=== PATIENT | male | born 1980 | race American Indian/Alaskan Native ===

== ENCOUNTER 2017-02-02 14:05 | Inpatient (IN) | payer MEDICAID, OTHER ==
[2017-02-02] MEDS ORDERED: Acetaminophen/oxyCODONE 325-5 MG Tab PO PRN (15:36)
[2017-02-02] MEDS ORDERED: Zolpidem 5 MG Tab PO PRN (15:46)
[2017-02-02] MEDS ORDERED: Ondansetron 4 MG Tab.DIS PO PRN (15:46)
--- NOTE | 2017-02-02 15:56 | PCM.HP ---
H&P History of Present Illness - General Date of Service: 02/02/17 Admit Problem/Dx: Admission Diagnosis/Problem Admission Diagnosis/Problem Osteomyelitis Source of Information: Patient - History of Present Illness Initial Comments - Free Text/Narative: The patient is a 36-year-old gentleman with a history of diabetes The patient presented with pain in the right foot. He was noted to have diabetic ulcer with osteomyelitis. Was admitted to [facility] and was treated with antibiotic and resection of the calcaneus bone. The patient's wound was treated with wound VAC. The patient was transferred to [facility] for continued IV antibiotic therapy Plan was 6 weeks of IV vancomycin. He has moderate pain in the right calcaneous area. Worse when stepping on it. He says that [place] he was allowed to walk. He was noted to have a highly variable blood sugars between 53-264 in [place]. - Related Data Allergies/Adverse Reactions: Allergies Allergy/AdvReac Type Severity Reaction Status Date / Time No Known Allergies Allergy Verified 02/02/17 14:21 Home Medications: Home Meds Insulin Aspart [NovoLOG] 35 unit SUBCUT TIDAC 02/02/17 [History] Insulin Detemir [Levemir] 60 unit SQ DAILY 02/02/17 [History] amLODIPine [Norvasc] 10 mg PO DAILY 02/02/17 [History] oxyCODONE HCl/Acetaminophen [Percocet 10-325 mg Tablet] 1 each PO Q6H PRN [History] Past Medical History HEENT History: Reports: Sinusitis, Other (See Below) Other HEENT History: wears glasses, tinnitus Cardiovascular History: Reports: High Cholesterol, Hypertension Respiratory History: Reports: None Gastrointestinal History: Reports: Cholelithiasis Genitourinary History: Reports: None Musculoskeletal History: Reports: Amputation, Other (See Below) Other Musculoskeletal History: right side, great toe and 2nd toe Neurological History: Reports: Seizure Psychiatric History: Reports: None Endocrine/Metabolic History: Reports: Diabetes, Type II Hematologic History: Reports: None Immunologic History: Reports: None Oncologic (Cancer) History: Reports: None Dermatologic History: Reports: Cellulitis - Infectious Disease History Infectious Disease History: Reports: MRSA - Past Surgical History HEENT Surgical History: Reports: None Cardiovascular Surgical History: Reports: None Respiratory Surgical History: Reports: None GI Surgical History: Reports: Appendectomy, Cholecystectomy Male Surgical History: Reports: None Endocrine Surgical History: Reports: None Neurological Surgical History: Reports: None Musculoskeletal Surgical History: Reports: Amputation, Other (See Below) Other Musculoskeletal Surgeries/Procedures:: left partial calcanectomy Oncologic Surgical History: Reports: None Dermatological Surgical History: Reports: None Social & Family History - Family History Family Medical History: Noncontributory - Tobacco Use Smoking Status *Q: Current Every Day Smoker Years of Tobacco use: 18 Packs/Tins Daily: 0.5 Used Tobacco, but Quit: No Second Hand Smoke Exposure: No - Caffeine Use Caffeine Use: Reports: None Other Caffeine Use: diet pop - Alcohol Use Days Per Week of Alcohol Use: 0 Number of Drinks Per Day: 6 Total Drinks Per Week: 0 - Recreational Drug Use Recreational Drug Use: No H&P Review of Systems - Review of Systems: Review Of Systems: See Below General: Denies: Fever Pulmonary: Denies: Shortness of Breath Cardiovascular: Denies: Chest Pain Gastrointestinal: Denies: Abdominal Pain Psychiatric: Denies: Confusion Exam - Exam Exam: See Below - Vital Signs Weight: 108.771 kg - Exam General: Alert, Oriented Neck: Supple Lungs: Clear to Auscultation, Normal Respiratory Effort Cardiovascular: Regular Rate, Regular Rhythm GI/Abdominal Exam: Normal Bowel Sounds, Soft Extremities: No Pedal Edema, Other (Left lower extremity with wound VAC) - Patient Data Lab Results Last 24 hrs: Laboratory studies from [place] were reviewed. Sodium 133 creatinine 1.5 glucose 332, 264, 53 White blood cell count 4.9, hemoglobin 8.7, platelets 307 *Q Meaningful Use (ADM) - VTE *Q VTE Criteria *Q: - Stroke *Q Stroke Criteria *Q: - AMI *Q AMI Criteria *Q: - Problem List (1) Diabetic ulcer of left foot SNOMED Code(s): 813463230 ICD Code: E11.621 - TYPE 2 DIABETES MELLITUS WITH FOOT ULCER; L97.529 - NON- PRESSURE CHRONIC ULCER OTH PRT LEFT FOOT W UNSP SEVERITY Status: Acute Current Visit: No Qualifiers: Diabetes mellitus type: type 2 Qualified Code(s): E11.621 - Type 2 diabetes mellitus with foot ulcer; L97.529 - Non-pressure chronic ulcer of other part of left foot with unspecified severity (2) Osteomyelitis of ankle AND/OR foot SNOMED Code(s): 09487135 ICD Code: M86.9 - OSTEOMYELITIS, UNSPECIFIED Status: Acute Current Visit : No Onset Date: 06/06/13 Problem Details: OSTEOMYELITIS LEFT CALCANEUS (3) Type I diabetes mellitus - poor control SNOMED Code(s): 514851780 ICD Code: E10.65 - TYPE 1 DIABETES MELLITUS WITH HYPERGLYCEMIA Status: Chronic Current Visit: No Onset Date: 10/12/02 Problem List Initiated/Reviewed/Updated: Yes Orders Last 24hrs: Active Orders 24 hr Category Date Time Status Patient Status [ADT] Routine ADT 02/02/17 15:46 Ordered Antiembolic Devices [RC] PER UNIT ROUTINE Care 02/02/17 15:49 Ordered Glucose [Blood Glucose Check, Bedside] [RC] QIDACANDBED Care 02/02/17 15:44 Ordered Oxygen Therapy [RC] PRN Care 02/02/17 15:46 Ordered Up With Assistance [RC] ASDIRECTED Care 02/02/17 15:46 Ordered VTE/DVT Education [RC] PER UNIT ROUTINE Care 02/02/17 15:46 Ordered Vital Signs [RC] Q4H Care 02/02/17 15:46 Ordered Consistent Carbohydrate Diet [DIET] Diet 02/02/17 Dinner Ordered BASIC METABOLIC PANEL,BMP [CHEM] AM Lab 02/03/17 05:15 Ordered CBC WITH AUTO DIFF [HEME] AM Lab 02/03/17 05:15 Ordered Acetaminophen [Tylenol] Med 02/02/17 15:46 Ordered 650 mg PO Q4H PRN Enoxaparin [Lovenox] Med 02/03/17 09:00 Ordered 40 mg SUBCUT DAILY Insulin Aspart [NovoLOG] Med 02/02/17 17:00 Ordered 10 unit SUBCUT TIDAC Insulin Aspart [NovoLOG] Med 02/02/17 17:00 Ordered See Protocol SUBCUT TIDAC Insulin Detemir Med 02/03/17 09:00 Ordered 15 unit SQ DAILY Ondansetron [Zofran ODT] Med 02/02/17 15:46 Ordered 4 mg PO Q6H PRN Piperacillin/Tazobactam [Zosyn] 3.375 gm Med 02/02/17 15:45 Ordered Sodium Chloride 0.9% [Normal Saline] 100 ml IV .Q8H Sodium Chloride 0.9% [Saline Flush] Med 02/02/17 15:46 Ordered 10 ml FLUSH ASDIRECTED PRN Zolpidem [Ambien] Med 02/02/17 15:46 Ordered 5 mg PO BEDTIME PRN amLODIPine [Norvasc] Med 02/03/17 09:00 Ordered 10 mg PO DAILY oxyCODONE HCl/Acetaminophen Med 02/02/17 15:36 Ordered 1 each PO Q6H PRN Saline Lock Insert [OM.PC] Routine Oth 02/02/17 15:46 Ordered Sequential Compression Device [OM.PC] Per Unit Routine Oth 02/02/17 15:47 Ordered Resuscitation Status Routine Resus Stat 02/02/17 15:46 Ordered Medication Orders Piperacillin Sod/Tazobactam (Sod 3.375 gm/ Sodium Chloride) 100 mls @ 200 mls/ hr IV .Q8H [facility] Insulin Aspart (Novolog) 10 unit SUBCUT TIDAC [facility] Insulin Aspart (Novolog) 0 unit SUBCUT TIDAC [facility] PRN Reason: Protocol Non-Formulary Medication (Amlodipine [Norvasc]) 10 mg PO DAILY [facility] Non-Formulary Medication (Oxycodone Hcl/Acetaminophen) 1 each PO Q6H PRN PRN Reason: Pain Non-Formulary Medication (Insulin Detemir) 15 unit SQ DAILY [facility] Assessment/Plan Comment:: Diabetic foot ulcer with osteomyelitis, status post calcaneal resection Wound care with wound VAC Continue antibiotic with Zosyn Plan was a total of 6 weeks Follow-up with ID is on 09 February with (telemedicine) Diabetes, type I Poorly controlled For now will start Levemir and NovoLog Will adjust based on blood sugars 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
[2017-02-02] MEDS ORDERED: oxyCODONE 5 MG Tab PO PRN (16:04)
[2017-02-02] MEDS ORDERED: Insulin Aspart 100 Units/ML 3 ML Pen SUBCUT SCH (17:00)
[2017-02-02] MEDS: Piperacillin/Tazobactam 3.375 GM in Sodium Chloride 0.9% 100 ML IV SCH ×2 (17:07→23:00)
[2017-02-02] MEDS: Sodium Chloride 0.9% 10 ML Syringe FLUSH PRN ×3 (17:09→23:33)
[2017-02-02] MEDS: Insulin Aspart 100 Units/ML 3 ML Pen SUBCUT SCH ×2 (17:54→17:55)
[2017-02-02] MEDS: Acetaminophen/oxyCODONE 325-5 MG Tab PO PRN (21:12)
[2017-02-02] MEDS: oxyCODONE 5 MG Tab PO PRN (21:13)
[2017-02-03] MEDS: oxyCODONE 5 MG Tab PO PRN ×5 (01:08→18:36)
[2017-02-03] MEDS: Acetaminophen/oxyCODONE 325-5 MG Tab PO PRN ×5 (01:11→18:37)
[2017-02-03] MEDS: Sodium Chloride 0.9% 10 ML Syringe FLUSH PRN ×5 (05:44→22:10)
[2017-02-03] MEDS: Piperacillin/Tazobactam 3.375 GM in Sodium Chloride 0.9% 100 ML IV SCH ×3 (05:45→22:13)
[2017-02-03] MEDS: Insulin Aspart 100 Units/ML 3 ML Pen SUBCUT SCH ×6 (08:13→17:41)
[2017-02-03] MEDS: Insulin Detemir 100 Units/ML 3 ML Pen SUBCUT SCH (08:16)
[2017-02-03] MEDS ORDERED: amLODIPine 5 MG Tab PO SCH (09:00)
[2017-02-03] MEDS ORDERED: INSULIN DETEMIR 60 UNIT SQ SCH (09:00)
[2017-02-03] MEDS: Enoxaparin 40 MG/0.4 ML Syringe SUBCUT SCH (09:51)
[2017-02-03] MEDS: Lisinopril 10 MG Tab PO SCH (09:51)
[2017-02-03] MEDS: Morphine 2 MG/ML Syringe IVPUSH PRN ×3 (10:39→22:10)
[2017-02-03] MEDS: Acetaminophen 325 MG Tab PO PRN (11:42)
[2017-02-04] MEDS: Acetaminophen/oxyCODONE 325-5 MG Tab PO PRN ×4 (02:39→17:29)
[2017-02-04] MEDS: oxyCODONE 5 MG Tab PO PRN ×5 (02:40→21:26)
[2017-02-04] MEDS: Sodium Chloride 0.9% 10 ML Syringe FLUSH PRN ×4 (04:05→09:44)
[2017-02-04] MEDS: Morphine 2 MG/ML Syringe IVPUSH PRN ×2 (04:05→09:44)
[2017-02-04] MEDS: Piperacillin/Tazobactam 3.375 GM in Sodium Chloride 0.9% 100 ML IV SCH ×3 (05:30→22:27)
[2017-02-04] MEDS: Insulin Aspart 100 Units/ML 3 ML Pen SUBCUT SCH ×6 (09:18→17:27)
[2017-02-04] MEDS: Insulin Detemir 100 Units/ML 3 ML Pen SUBCUT SCH (09:20)
[2017-02-04] MEDS: Enoxaparin 40 MG/0.4 ML Syringe SUBCUT SCH (09:23)
[2017-02-04] MEDS: Lisinopril 10 MG Tab PO SCH (09:24)
[2017-02-04] MEDS: Acetaminophen 325 MG Tab PO PRN ×2 (09:26→21:23)
[2017-02-04] MEDS: Metoprolol Tartrate 25 MG Tab PO SCH ×2 (11:06→22:25)
[2017-02-05] MEDS: Acetaminophen/oxyCODONE 325-5 MG Tab PO PRN ×5 (00:46→20:57)
[2017-02-05] MEDS: oxyCODONE 5 MG Tab PO PRN ×5 (01:31→21:05)
[2017-02-05] MEDS: Piperacillin/Tazobactam 3.375 GM in Sodium Chloride 0.9% 100 ML IV SCH ×3 (06:47→21:07)
[2017-02-05] MEDS: Lisinopril 10 MG Tab PO SCH (08:55)
[2017-02-05] MEDS: Insulin Detemir 100 Units/ML 3 ML Pen SUBCUT SCH (08:56)
[2017-02-05] MEDS: Enoxaparin 40 MG/0.4 ML Syringe SUBCUT SCH (08:56)
[2017-02-05] MEDS: Insulin Aspart 100 Units/ML 3 ML Pen SUBCUT SCH ×6 (08:57→17:36)
[2017-02-05] MEDS: Metoprolol Tartrate 25 MG Tab PO SCH ×2 (09:00→21:06)
[2017-02-05] MEDS: Acetaminophen 325 MG Tab PO PRN ×3 (09:04→23:42)
[2017-02-05] MEDS: Sodium Chloride 0.9% 10 ML Syringe FLUSH PRN ×2 (13:41→14:32)
[2017-02-05] MEDS: Morphine 2 MG/ML Syringe IVPUSH PRN (13:41)
--- NOTE | 2017-02-05 16:37 | PCM.PN ---
- General Info Date of Service: 02/05/17 Admission Dx/Problem (Free Text): Admission Diagnosis/Problem Admission Diagnosis/Problem Osteomyelitis Functional Status: Reports: Pain Controlled - Review of Systems General: Denies: Fever, Weakness Pulmonary: Denies: Shortness of Breath Cardiovascular: Denies: Chest Pain, Edema Psychiatric: Denies: Mood Lability, Anxiety - Patient Data Vitals - Most Recent: Last Vital Signs Temp 37.0 C 02/05/17 16:00 Pulse 72 02/05/17 16:00 Resp 20 02/05/17 16:00 BP 167/103 H 02/05/17 16:00 Pulse Ox 100 02/05/17 16:00 Weight - Most Recent: 108.771 kg I&O - Last 24 Hours: Intake & Output 02/05/17 02/05/17 02/05/17 06:59 14:59 22:59 Intake Total 435 570 98 Balance 435 570 98 Lab Results Last 24 Hours: Laboratory Results - last 24 hr 02/04/17 02/04/17 02/05/17 Range/Units 17:26 20:47 06:25 WBC 6.0 (5.0-10.0) 10^3/uL RBC 3.62 L (4.6-6.2) 10^6/uL Hgb 9.5 L (14.0-18.0) g/dL Hct 29.8 L (40.0-54.0) % MCV 82.3 (80-100) fL MCH 26.2 L (27.0-34.0) pg MCHC 31.9 L (33.0-35.0) g/dL Plt Count 327 (150-450) 10^3/uL Neut % (Auto) 65.2 (42.2-75.2) % Lymph % (Auto) 17.7 L (20.5-50.1) % Ellis % (Auto) 8.2 H (2-8) % Eos % (Auto) 8.7 H (1.0-3.0) % Baso % (Auto) 0.2 (0.0-1.0) % Sodium (135-145) mmol/L Potassium (3.6-5.0) mmol/L Chloride (101-111) mmol/L Carbon Dioxide (21.0-31.0) mmol/L Anion Gap BUN (7-18) mg/dL Creatinine (0.6-1.3) mg/dL Est Cr Clr Drug Dosing mL/min Estimated GFR (MDRD) Glucose (74-105) mg/dL POC Glucose 167 H 190 H (70-105) mg/dl Calcium (8.4-10.2) mg/dl 02/05/17 02/05/17 02/05/17 Range/Units 06:25 07:53 11:23 WBC (5.0-10.0) 10^3/uL RBC (4.6-6.2) 10^6/uL Hgb (14.0-18.0) g/dL Hct (40.0-54.0) % MCV (80-100) fL MCH (27.0-34.0) pg MCHC (33.0-35.0) g/dL Plt Count (150-450) 10^3/uL Neut % (Auto) (42.2-75.2) % Lymph % (Auto) (20.5-50.1) % Ellis % (Auto) (2-8) % Eos % (Auto) (1.0-3.0) % Baso % (Auto) (0.0-1.0) % Sodium 135 (135-145) mmol/L Potassium 4.8 (3.6-5.0) mmol/L Chloride 109 (101-111) mmol/L Carbon Dioxide 21.0 (21.0-31.0) mmol/L Anion Gap 9.8 BUN 13 (7-18) mg/dL Creatinine 1.4 H (0.6-1.3) mg/dL Est Cr Clr Drug Dosing 82.44 mL/min Estimated GFR (MDRD) 57 Glucose 255 H (74-105) mg/dL POC Glucose 242 H 164 H (70-105) mg/dl Calcium 8.0 L (8.4-10.2) mg/dl Med Orders - Current: Current Medications Acetaminophen (Tylenol) 650 mg PO Q4H PRN PRN Reason: Pain (Mild 1-3)/fever Last Admin: 02/05/17 14:31 Dose: 650 mg Enoxaparin Sodium (Lovenox) 40 mg SUBCUT DAILY [facility] Last Admin: 02/05/17 08:56 Dose: 40 mg Piperacillin Sod/Tazobactam (Sod 3.375 gm/ Sodium Chloride) 100 mls @ 200 mls/ hr IV Q8H [facility] Last Infusion: 02/05/17 15:15 Dose: Infused Insulin Aspart (Novolog) [address] [facility] Last Admin: 02/05/17 13:40 Dose: 10 units Insulin Aspart (Novolog) [address] [facility] PRN Reason: Protocol Last Admin: 02/05/17 13:41 Dose: 2 units Insulin Detemir (Levemir) [address] [facility] Last Admin: 02/05/17 08:56 Dose: 15 units Lisinopril (Prinivil) [address] [facility] Last Admin: 02/05/17 08:55 Dose: 10 mg Metoprolol Tartrate (Lopressor) [address] [facility] Last Admin: 02/05/17 09:00 Dose: 25 mg Morphine Sulfate (Morphine) 1 mg IVPUSH Q4H PRN PRN Reason: Pain Last Admin: 02/05/17 13:41 Dose: 1 mg Ondansetron HCl (Zofran Odt) 4 mg PO Q6H PRN PRN Reason: nausea, able to take PO Oxycodone HCl (Oxycodone) 5 mg PO Q4H PRN PRN Reason: Pain Last Admin: 02/05/17 15:55 Dose: 5 mg Oxycodone/Acetaminophen (Percocet 325-5 Mg) 1 tab PO Q4H PRN PRN Reason: Pain Last Admin: 02/05/17 15:54 Dose: 1 tab Senna/Docusate Sodium (Senna Plus) [address] [facility] Last Admin: 02/05/17 08:55 Dose: 1 tab Sodium Chloride (Saline Flush) 10 ml FLUSH ASDIRECTED PRN PRN Reason: Keep Vein Open Last Admin: 02/05/17 14:32 Dose: 10 ml Zolpidem Tartrate (Ambien) 5 mg PO BEDTIME PRN PRN Reason: Sleep Discontinued Medications Amlodipine Besylate (Norvasc) [address] [facility] Insulin Aspart (Novolog) [address] [facility] Non-Formulary Medication (Insulin Detemir) [address] [facility] Oxycodone HCl (Oxycodone) 5 mg PO Q6H PRN PRN Reason: PAIN Last Admin: 02/02/17 16:10 Dose: 5 mg Oxycodone/Acetaminophen (Percocet 325-5 Mg) 1 tab PO Q6H PRN PRN Reason: Pain Last Admin: 02/02/17 16:12 Dose: 1 tab - Exam Quality Assessment: No: Supplemental Oxygen General: Alert, Oriented Neck: Supple Lungs: Clear to Auscultation, Normal Respiratory Effort Cardiovascular: Regular Rate, Regular Rhythm GI/Abdominal Exam: Normal Bowel Sounds, Soft, Non-Tender Extremities: Other (Left lower extremity wound with wound VAC) - Problem List & Annotations (1) Diabetic ulcer of left foot SNOMED Code(s): 381615422 Code(s): E11.621 - TYPE 2 DIABETES MELLITUS WITH FOOT ULCER; L97.529 - NON- PRESSURE CHRONIC ULCER OTH PRT LEFT FOOT W UNSP SEVERITY Status: Acute Current Visit: No Qualifiers: Diabetes mellitus type: type 2 Qualified Code(s): E11.621 - Type 2 diabetes mellitus with foot ulcer; L97.529 - Non-pressure chronic ulcer of other part of left foot with unspecified severity (2) Osteomyelitis of ankle AND/OR foot SNOMED Code(s): 91017935 Code(s): M86.9 - OSTEOMYELITIS, UNSPECIFIED Status: Acute Current Visit: No Onset Date: 06/06/13 Annotation/Comment:: OSTEOMYELITIS LEFT CALCANEUS (3) Type I diabetes mellitus - poor control SNOMED Code(s): 119605365 Code(s): E10.65 - TYPE 1 DIABETES MELLITUS WITH HYPERGLYCEMIA Status: Chronic Current Visit: No Onset Date: 10/12/02 - Problem List Review Problem List Initiated/Reviewed/Updated: Yes - Plan Plan:: Diabetic foot ulcer with osteomyelitis, status post calcaneal resection Wound care with wound VAC, discussed to try to limit weightbearing on the heel area Continue antibiotic with Zosyn Plan was a total of 6 weeks Follow-up with ID is on 09 February with (telemedicine) Diabetes, type I Poorly controlled Continue Levemir and NovoLog Will adjust based on blood sugars Hypertension with chronic kidney disease stage II due to diabetes The patient is on Norvasc 10 mg currently With his type 1 diabetes he would benefit from Alan inhibitors I have stopped the Norvasc Started lisinopril Follow renal function and adjust as needed Anemia It was felt to be due to anemia of chronic disease and chronic kidney disease and some anemia of acute blood loss from surgery We'll monitor periodically Pain control with Percocet Try to minimize narcotics Added Tylenol when necessary, Motrin when necessary
[2017-02-06] MEDS: oxyCODONE 5 MG Tab PO PRN ×6 (01:10→23:45)
[2017-02-06] MEDS: Acetaminophen/oxyCODONE 325-5 MG Tab PO PRN ×6 (01:11→23:46)
[2017-02-06] MEDS: Piperacillin/Tazobactam 3.375 GM in Sodium Chloride 0.9% 100 ML IV SCH ×3 (05:58→21:26)
[2017-02-06] MEDS: Lisinopril 10 MG Tab PO SCH ×2 (06:33→09:00)
[2017-02-06] MEDS: Metoprolol Tartrate 25 MG Tab PO SCH ×4 (06:34→22:12)
[2017-02-06] MEDS: Insulin Detemir 100 Units/ML 3 ML Pen SUBCUT SCH (09:21)
[2017-02-06] MEDS: Enoxaparin 40 MG/0.4 ML Syringe SUBCUT SCH (09:21)
[2017-02-06] MEDS: Insulin Aspart 100 Units/ML 3 ML Pen SUBCUT SCH ×6 (09:22→17:57)
[2017-02-06] MEDS: Morphine 2 MG/ML Syringe IVPUSH PRN ×4 (09:23→23:38)
[2017-02-06] MEDS ORDERED: Lisinopril 10 MG Tab PO ONE (10:40)
[2017-02-06] MEDS: Acetaminophen 325 MG Tab PO PRN ×2 (12:20→22:07)
[2017-02-06] MEDS: Sodium Chloride 0.9% 10 ML Syringe FLUSH PRN ×6 (19:36→23:43)
[2017-02-07] MEDS: Sodium Chloride 0.9% 10 ML Syringe FLUSH PRN ×5 (03:46→21:49)
[2017-02-07] MEDS: Morphine 2 MG/ML Syringe IVPUSH PRN ×5 (03:47→21:49)
[2017-02-07] MEDS: oxyCODONE 5 MG Tab PO PRN ×4 (03:49→17:23)
[2017-02-07] MEDS: Acetaminophen/oxyCODONE 325-5 MG Tab PO PRN ×4 (03:50→17:22)
[2017-02-07] MEDS: Piperacillin/Tazobactam 3.375 GM in Sodium Chloride 0.9% 100 ML IV SCH ×3 (05:39→21:52)
[2017-02-07] MEDS: Insulin Aspart 100 Units/ML 3 ML Pen SUBCUT SCH ×6 (08:42→17:36)
[2017-02-07] MEDS: Insulin Detemir 100 Units/ML 3 ML Pen SUBCUT SCH (08:42)
[2017-02-07] MEDS: Enoxaparin 40 MG/0.4 ML Syringe SUBCUT SCH (08:44)
[2017-02-07] MEDS: Lisinopril 10 MG Tab PO SCH (08:44)
[2017-02-07] MEDS: Metoprolol Tartrate 25 MG Tab PO SCH ×3 (08:47→21:54)
[2017-02-07] MEDS: Acetaminophen 325 MG Tab PO PRN ×2 (11:11→19:40)
[2017-02-07] MEDS ORDERED: Ibuprofen 400 MG Tab PO PRN (14:43)
[2017-02-08] MEDS: Acetaminophen/oxyCODONE 325-5 MG Tab PO PRN ×5 (00:12→22:37)
[2017-02-08] MEDS: oxyCODONE 5 MG Tab PO PRN ×5 (00:13→22:36)
[2017-02-08] MEDS: Piperacillin/Tazobactam 3.375 GM in Sodium Chloride 0.9% 100 ML IV SCH ×3 (06:11→21:56)
[2017-02-08] MEDS: Sodium Chloride 0.9% 10 ML Syringe FLUSH PRN ×7 (06:11→22:30)
[2017-02-08] MEDS: Lisinopril 10 MG Tab PO SCH ×2 (07:49→09:42)
[2017-02-08] MEDS: Insulin Detemir 100 Units/ML 3 ML Pen SUBCUT SCH ×2 (08:49→21:01)
[2017-02-08] MEDS: Insulin Aspart 100 Units/ML 3 ML Pen SUBCUT SCH ×6 (08:50→17:38)
[2017-02-08] MEDS: Metoprolol Tartrate 25 MG Tab PO SCH ×3 (08:51→21:03)
[2017-02-08] MEDS: Enoxaparin 40 MG/0.4 ML Syringe SUBCUT SCH (08:52)
[2017-02-08] MEDS: Morphine 2 MG/ML Syringe IVPUSH PRN ×3 (10:20→20:56)
[2017-02-08] MEDS: Acetaminophen 325 MG Tab PO PRN (10:39)
[2017-02-08] MEDS ORDERED: cloNIDine 0.1 MG Tab PO PRN (11:34)
[2017-02-08] MEDS: amLODIPine 5 MG Tab PO SCH (12:41)
--- NOTE | 2017-02-08 13:46 | PN ---
DATE: 02/08/2017 SUBJECTIVE: Mr. Travis Segura is a 36-year-old male with a medical history significant for hypertension, type 2 diabetes mellitus, hyperlipidemia, recently diagnosed with osteomyelitis involving the left foot and resulting in resection of the calcaneal bone and currently has a wound VAC in place and admitted to the Swing-Bed for continued IV antibiotic therapy with IV vancomycin for next 6 weeks. For the last 24 hours, the patient is not very compliant with medical treatment plan. He keeps walking on his feet and not compliant with his diet, resulting in uncontrolled diabetes. He is noted to have uncontrolled hypertension. He denies any chest pain. No shortness of breath, no abdominal pain, no nausea, no vomiting, no diarrhea, but continues to have pain to the left leg. He rates the pain as 8/10 in intensity, aggravated on ambulation, relieved with rest and pain medication. REVIEW OF SYSTEMS: Cardiovascular, Respiratory, Gastrointestinal, Neurology, Constitutional were all evaluated. PHYSICAL EXAMINATION: VITAL SIGNS: Temperature of 98, pulse of 75, blood pressure of 173/98, respiratory rate of 20, saturating at 100% on room air. GENERAL APPEARANCE: The patient is well oriented to time, place, and person. Follows commands spontaneously. CARDIOVASCULAR SYSTEM: S1, S2 heard with normal intensity. No gallops. RESPIRATORY SYSTEM: Clear to auscultation bilaterally. No wheeze. No crepitations. ABDOMEN: Soft. Bowel sounds positive. Nontender. No rigidity. EXTREMITIES: Wound VAC noted to the left lower extremity. Surgical dressing noted on the left foot. LABORATORY DATA: Blood sugars in the range of 84 to 300. MEDICATIONS: 1. Tylenol 650 every 4 hours as needed for pain. 2. Norvasc 10 mg daily. 3. Clonidine 0.1 mg every 8 hours as needed for systolic blood pressure greater than 160. 4. Lovenox 40 mg subcutaneous daily. 5. Ibuprofen 400 mg every 6 hours as needed for pain. 6. NovoLog 10 units subcutaneous 3 times a day. 7. Levemir 15 units twice a day. 8. Lisinopril 20 mg daily. 9. Metoprolol 25 mg q.12 hourly. 10.Oxycodone 5 mg every 4 hours as needed for pain. 11.Zosyn every 8 hours. ASSESSMENT: 1. Osteomyelitis, involving the left diabetic foot ulcer, requiring resection of the calcaneal bone. 2. Type 2 diabetes mellitus, uncontrolled. 3. Hypertension, uncontrolled. 4. Noncompliance with medical treatment plan. PLAN: 1. Osteomyelitis: The patient is currently on IV antibiotic with Zosyn every 8 hours. Continue the same. We will follow with ID recommendations. Continue with the wound cares. Continue with the wound VAC. The patient is educated not to put weight on the left foot at this could delay the wound healing and also damage the foot and may require the left below-knee amputation down the road if he is not very compliant. The patient was made aware of the complications which he understands and verbalized the same. He is encouraged to use wheelchair for ambulation. 2. Type 2 diabetes mellitus, uncontrolled: We will increase the Levemir to 15 units twice a day. Continue with NovoLog 10 units 3 times a day with each meals and have him on supplemental scale insulin as needed for additional coverage of his blood glucose. We will have him on hypoglycemic protocol. 3. Hypertension, uncontrolled: The patient continues to have elevated blood pressure. Added Norvasc 10 mg and also added clonidine 0.1 mg as needed for systolic blood pressure greater than 160. 4. DVT prophylaxis: Continue with Lovenox for DVT prophylaxis. 5. The patient was educated about being compliant with medical treatment plan and educated about the complications of diabetes, which he understands and verbalized the same. [facility] /[id number]
[2017-02-09] MEDS: Acetaminophen/oxyCODONE 325-5 MG Tab PO PRN ×5 (02:43→20:16)
[2017-02-09] MEDS: oxyCODONE 5 MG Tab PO PRN ×5 (02:44→20:17)
[2017-02-09] MEDS: Sodium Chloride 0.9% 10 ML Syringe FLUSH PRN ×6 (05:31→23:06)
[2017-02-09] MEDS: Piperacillin/Tazobactam 3.375 GM in Sodium Chloride 0.9% 100 ML IV SCH ×3 (05:32→22:33)
[2017-02-09] MEDS: Morphine 2 MG/ML Syringe IVPUSH PRN ×4 (06:00→23:08)
[2017-02-09] MEDS: amLODIPine 5 MG Tab PO SCH (08:23)
[2017-02-09] MEDS: Lisinopril 10 MG Tab PO SCH (08:24)
[2017-02-09] MEDS: Enoxaparin 40 MG/0.4 ML Syringe SUBCUT SCH (08:25)
[2017-02-09] MEDS: Insulin Detemir 100 Units/ML 3 ML Pen SUBCUT SCH ×2 (08:25→22:38)
[2017-02-09] MEDS: Insulin Aspart 100 Units/ML 3 ML Pen SUBCUT SCH ×6 (08:26→18:47)
[2017-02-09] MEDS: Metoprolol Tartrate 25 MG Tab PO SCH ×2 (10:47→22:41)
[2017-02-09] MEDS: Acetaminophen 325 MG Tab PO PRN (14:39)
[2017-02-10] MEDS: Acetaminophen/oxyCODONE 325-5 MG Tab PO PRN ×3 (00:17→10:34)
[2017-02-10] MEDS: oxyCODONE 5 MG Tab PO PRN ×3 (00:17→10:33)
[2017-02-10] MEDS: Sodium Chloride 0.9% 10 ML Syringe FLUSH PRN ×3 (02:25→07:30)
[2017-02-10] MEDS: Morphine 2 MG/ML Syringe IVPUSH PRN ×4 (02:26→10:29)
[2017-02-10] MEDS: Piperacillin/Tazobactam 3.375 GM in Sodium Chloride 0.9% 100 ML IV SCH (05:17)
[2017-02-10 06:59] VITALS: BP 148/66
[2017-02-10] MEDS: Acetaminophen 325 MG Tab PO PRN (08:30)
[2017-02-10] MEDS: amLODIPine 5 MG Tab PO SCH (08:31)
[2017-02-10] MEDS: Lisinopril 10 MG Tab PO SCH (08:31)
[2017-02-10] MEDS: Enoxaparin 40 MG/0.4 ML Syringe SUBCUT SCH (08:35)
[2017-02-10] MEDS: Insulin Detemir 100 Units/ML 3 ML Pen SUBCUT SCH (08:35)
[2017-02-10] MEDS: Insulin Aspart 100 Units/ML 3 ML Pen SUBCUT SCH ×4 (08:36→15:46)
[2017-02-10] MEDS: Metoprolol Tartrate 25 MG Tab PO SCH (10:28)
[2017-02-10] MEDS ORDERED: Insulin Aspart 100 Units/ML 3 ML Pen SUBCUT ONE (11:20)
--- NOTE | 2017-02-10 16:43 | DISCH ---
ADMITTING DIAGNOSIS: Osteomyelitis of the left foot, requiring partial calcanectomy, and currently on wound VAC requiring swing bed admission. DISCHARGE DIAGNOSIS: 1. Osteomyelitis involving the left foot with worsening wound and tissue and necrotic tissue noted around the wound site, requiring further debridement and needing transferred to higher level of care for further incision and debridement and wound cares, and possible partial amputation needing further assessment by Podiatry. 2. Possible sepsis. 3. Diabetes mellitus, uncontrolled. 4. Hypertension, uncontrolled. HISTORY OF PRESENTING ILLNESS: Mr. Travis Segura Junior is a 36-year- old male with medical history significant for hypertension, type 2 diabetes mellitus, hyperlipidemia, and diabetes complicated by foot ulcer which was further complicated by osteomyelitis involving the left foot, requiring a partial calcanectomy with wound VAC application of the left foot on January 27, 2017. The patient was discharged to swing bed on February 02 for further cares of the wound. The patient was continued with wound cares and wound VAC, but the patient was noted to be very noncompliant with medical treatment. He kept walking on his foot when he was advised not to and continued to have uncontrolled diabetes requiring further dose adjustment of his insulin. Since yesterday, that is in the last 24 hours, the patient started having low-grade temperatures. His temperature was around 100.1 The patient was continued on Zosyn. His vitals remained stable. Upon examination of the wound, it was noted to be necrotic, foul smelling, and lot of tissue around the wound, and so needing further debridement of the wound, needing transfer to higher level of care. He is discharged to [facility] for further cares and possible surgical consultation and possible wound debridement. He is discharged in ground ambulance. PHYSICAL EXAMINATION: Vital Signs: On the day of discharge vitals; temperature of 100.1, pulse of 85, blood pressure 148/66, respiratory rate of 20, saturating at 99% on room air. General Appearance: Patient is well oriented to time, place, and person. Follows commands spontaneously. Cardiovascular System: S1, S2 heard with normal intensity. No gallops. Respiratory System: Clear to auscultation bilaterally. No wheeze. No crepitations. Abdomen: Soft. Bowel sounds positive. Nontender. No rigidity. Extremities: Edema in bilateral lower extremities. Bilateral foot ulcers noted, but more so on the left side. Open wounds noted on the left side with a lot of necrotic tissue at the wound base and also surrounding the wound. Foul- smelling discharge noted. Pulses weakly felt. DISCHARGE MEDICATIONS: Include: 1. Tylenol 650 every 4 hours as needed for pain. 2. Percocet 5/325 mg every 4 hours as needed for severe pain. 3. NovoLog 10 units 3 times a day with each meals. 4. Levemir 20 units subcu twice a day. 5. Lisinopril 20 mg daily. 6. Metoprolol 25 mg every 12 hours. 7. Zosyn 3.375 g IV q.8 hourly. 8. Norvasc 10 mg daily. 9. Oxycodone 1 tablet every 6 hours as needed for pain. 10.NovoLog supplemental scale insulin. CONDITION ON ADMISSION: Stable. CONDITION ON DISCHARGE: The patient would need further incision and drainage and debridement of the left foot wound with possible osteomyelitis. DISPOSITION: Discharged to [facility]. DISCHARGE INSTRUCTIONS: 1. Activity: As tolerated. 2. The patient is advised to be on wheelchair and do not put weight on the left foot for now. 3. Diet: Cardiac-healthy diet and consistent carbohydrate diet. 4. Follow up with primary care physician upon discharge from [facility]. Spent over 35 minutes of time in evaluating and treating this patient and making discharge arrangements. [facility] /[id number]
== END 2017-02-10 12:20 | DRG 637 ==
LOC: DL.MS 14:05 → UNDOADMIN 14:05 → DL.MS 15:46 → EEVIPCON 15:46
PROVIDERS: ADMIT Internal Medicine; ATTEND Internal Medicine
DX: E11.69 Type 2 diabetes mellitus with other specified complication (principal); A41.9 Sepsis, unspecified organism; M86.9 Osteomyelitis, unspecified; E11.65 Type 2 diabetes mellitus with hyperglycemia; E11.621 Type 2 diabetes mellitus with foot ulcer; Z79.4 Long term (current) use of insulin; E78.00 Pure hypercholesterolemia, unspecified; F17.210 Nicotine dependence, cigarettes, uncomplicated; L97.529 Non-pressure chronic ulcer of other part of left foot with unspecified severity; I12.9 Hypertensive chronic kidney disease with stage 1 through stage 4 chronic kidney disease, or unspecified chronic kidney disease; E11.22 Type 2 diabetes mellitus with diabetic chronic kidney disease; N18.2 Chronic kidney disease, stage 2 (mild); D63.1 Anemia in chronic kidney disease; Z91.19 Patient's noncompliance with other medical treatment and regimen
CPT/HCPCS: 36415; 80048; 82565; 82962; 84460; 85025; 85027; 85651; 86140; 87040; A9270-GY; J1650; J1815-GY; J2270; J2543; J7050

== ENCOUNTER 2017-07-30 17:45 | Inpatient (IN) | payer MEDICAID, OTHER ==
[2017-07-30] MEDS ORDERED: Sodium Chloride 0.9% 1,000 ML IV SCH (18:00)
[2017-07-30] MEDS ORDERED: Ondansetron 4 MG/2 ML SDV IVPUSH PRN (18:00)
[2017-07-30] MEDS ORDERED: Acetaminophen 325 MG Tab PO PRN (18:00)
--- NOTE | 2017-07-30 18:08 | PCM.HP ---
H&P History of Present Illness - General Date of Service: 07/30/17 Admit Problem/Dx: Admission Diagnosis/Problem Admission Diagnosis/Problem Pneumonia Source of Information: Patient History Limitations: Reports: Other (Acuity of medical illness) - History of Present Illness Initial Comments - Free Text/Narative: The patient was admitted from the clinic with complaint of fever, cough and generalized weakness. Symptoms has been going on for more than one week and worsening. His cough is productive of yellowish sputum. He also was having associated nausea and intermittent vomiting. On arrival in the hospital he began to complain more chest pain. Describes chest pain as dull in nature located retrosternal area. It is not exertional. Subsequently the patient started throwing up. Also complains of pain involving the right lower extremity. This has been going on for about 3 days. There is associated warmth. In the clinic the patient was found to have acute on chronic renal failure. His blood pressure is also significantly elevated. Chest x-ray was obtained and it showed left lower lobe infiltrate consistent with pneumonia Severity: Moderate Worsens with: Reports: Breathing - Related Data Allergies/Adverse Reactions: Allergies Allergy/AdvReac Type Severity Reaction Status Date / Time No Known Allergies Allergy Verified 02/02/17 14:21 Home Medications: Home Meds amLODIPine [Norvasc] 10 mg PO DAILY 02/02/17 [History] oxyCODONE HCl/Acetaminophen [Percocet 10-325 mg Tablet] 1 each PO Q6H PRN [History] Acetaminophen [Tylenol] 650 mg PO Q4H PRN #20 tablet 02/10/17 [Rx] Acetaminophen/oxyCODONE [Percocet 325-5 MG] 1 tab PO Q4H PRN #10 tablet [Rx] Insulin Aspart [NovoLOG] 10 unit SUBCUT TIDAC #1 pen 02/10/17 [Rx] Insulin Detemir [Levemir] 20 unit SUBCUT BID #1 pen 02/10/17 [Rx] Lisinopril [Prinivil] 20 mg PO DAILY #30 tablet 02/10/17 [Rx] Metoprolol Tartrate [Lopressor] 25 mg PO Q12H #30 tablet 02/10/17 [Rx] Piperacillin/Tazobactam [Zosyn] 3.375 gm IV Q8H vial 02/10/17 [Rx] Past Medical History HEENT History: Reports: Sinusitis, Other (See Below) Other HEENT History: wears glasses, tinnitus Cardiovascular History: Reports: High Cholesterol, Hypertension Respiratory History: Reports: None Gastrointestinal History: Reports: Cholelithiasis Genitourinary History: Reports: None Musculoskeletal History: Reports: Amputation, Other (See Below) Other Musculoskeletal History: right side, great toe and 2nd toe Neurological History: Reports: Seizure Psychiatric History: Reports: None Endocrine/Metabolic History: Reports: Diabetes, Type II Hematologic History: Reports: None Immunologic History: Reports: None Oncologic (Cancer) History: Reports: None Dermatologic History: Reports: Cellulitis - Infectious Disease History Infectious Disease History: Reports: MRSA - Past Surgical History HEENT Surgical History: Reports: None Cardiovascular Surgical History: Reports: None Respiratory Surgical History: Reports: None GI Surgical History: Reports: Appendectomy, Cholecystectomy Male Surgical History: Reports: None Endocrine Surgical History: Reports: None Neurological Surgical History: Reports: None Musculoskeletal Surgical History: Reports: Amputation, Other (See Below) Other Musculoskeletal Surgeries/Procedures:: left partial calcanectomy Oncologic Surgical History: Reports: None Dermatological Surgical History: Reports: None Social & Family History - Family History Family Medical History: Noncontributory - Tobacco Use Smoking Status *Q: Current Every Day Smoker Years of Tobacco use: 18 Packs/Tins Daily: 0.5 Used Tobacco, but Quit: No Second Hand Smoke Exposure: No - Caffeine Use Caffeine Use: Reports: None Other Caffeine Use: diet pop - Alcohol Use Days Per Week of Alcohol Use: 0 Number of Drinks Per Day: 6 Total Drinks Per Week: 0 - Recreational Drug Use Recreational Drug Use: No H&P Review of Systems - Review of Systems: Review Of Systems: See Below General: Reports: Fever, Chills Pulmonary: Reports: Shortness of Breath, Cough Cardiovascular: Reports: Chest Pain Gastrointestinal: Reports: Nausea, Vomiting Musculoskeletal: Reports: Leg Pain Psychiatric: Reports: Anxiety Neurological: Reports: Weakness Exam - Exam Exam: See Below - Vital Signs Vital Signs: Last Vital Signs Temp 37.9 C 07/30/17 17:57 Pulse 108 H 07/30/17 17:57 Resp 20 07/30/17 17:57 BP 178/118 H 07/30/17 17:57 Pulse Ox 99 07/30/17 17:57 - Exam General: Alert, Oriented HEENT: Conjunctiva Clear, Pupils Equal Neck: Supple Lungs: Decreased Breath Sounds GI/Abdominal Exam: Soft, Non-Tender Extremities: Normal Inspection, Redness (Right lower extremity) Skin: Warm, Dry Psychiatric: Alert *Q Meaningful Use (ADM) - VTE *Q VTE Criteria *Q: - Stroke *Q Stroke Criteria *Q: - AMI *Q AMI Criteria *Q: Problem List Initiated/Reviewed/Updated: Yes Orders Last 24hrs: Active Orders 24 hr Category Date Time Status Patient Status [ADT] Routine ADT 07/30/17 18:00 Ordered Oxygen Therapy [RC] PRN Care 07/30/17 18:00 Ordered Up ad Silvina [RC] ASDIRECTED Care 07/30/17 18:00 Ordered VTE/DVT Education [RC] PER UNIT ROUTINE Care 07/30/17 18:00 Ordered Vital Signs [RC] Q4H Care 07/30/17 18:00 Ordered Consistent Carbohydrate Diet [DIET] Diet 07/30/17 Dinner Ordered BASIC METABOLIC PANEL,BMP [CHEM] Routine Lab 07/31/17 18:05 Ordered CBC WITH AUTO DIFF [HEME] AM Lab 07/31/17 05:11 Ordered CULTURE BLOOD [BC] Stat Lab 07/30/17 18:04 Ordered CULTURE BLOOD [BC] Stat Lab 07/30/17 18:04 Ordered CULTURE SPUTUM + SMEAR [RM] Stat Lab 07/30/17 18:00 Ordered Acetaminophen [Tylenol] Med 07/30/17 18:00 Ordered 650 mg PO Q4H PRN Azithromycin [Zithromax] 500 mg Med 07/30/17 18:15 Ordered Sodium Chloride 0.9% [Normal Saline] 250 ml IV Q24H Ondansetron [Zofran] Med 07/30/17 18:00 Ordered 4 mg IVPUSH Q6H PRN Sodium Chloride 0.9% @ 125 MLS/HR (1000ml) Med 07/30/17 18:00 Ordered Sodium Chloride 0.9% [Normal Saline] 1,000 ml IV ASDIRECTED cefTRIAXone [Rocephin] Med 07/30/17 18:15 Ordered 1 gm IVPUSH Q24H Blood Culture x2 Reflex Set [OM.PC] Stat Oth 07/30/17 18:00 Ordered Resuscitation Status Routine Resus Stat 07/30/17 18:00 Ordered Medication Orders Acetaminophen (Tylenol) 650 mg PO Q4H PRN PRN Reason: Pain (Mild 1-3)/fever Sodium Chloride (Normal Saline) 1,000 mls @ 125 mls/hr IV ASDIRECTED [facility] Ondansetron HCl (Zofran) 4 mg IVPUSH Q6H PRN PRN Reason: Nausea/Vomiting Assessment/Plan Comment:: #. Probable community-acquired pneumonia Vision has been coughing for one week. He has also been short of breath. Chest x-ray showed left lower lobe infiltrate consistent with pneumonia. Cannot rule out Kyleigh physician #. Probable right lower extremity cellulitis. Patient has a scab on the right foot. There is surrounding erythema which is extending upward to the leg. #. Acute on chronic renal failure Serum creatinine has come up to 3.6 from baseline of 1.6 Reason for this is not obvious #. Diabetes mellitus type 1 Patient has been on insulin therapy Blood sugars have been erratic #. Hypertension Blood pressure is poorly controlled #. Chest pain Clinic complaining of chest pain on arrival to the hospital He has multiple risk factors. We'll proceed to rule out acute coronary syndrome Plan: Admit patient to medical floor Start intravenous normal saline going at 1 25 mL an hour send sputum for Gram stain and cultures Start patient on empiric antibiotics with intravenous Rocephin Intravenous is azithromycin Obtain repeat basic metabolic panel Obtain urinalysis Monitor blood sugar before meals and at bedtime Obtain an EKG Obtain troponin every 6 hours 2 Intravenous Dilaudid for pain control Nitroglycerin given Chart reviewed. Discussed with the clinic physician
[2017-07-30] MEDS ORDERED: Azithromycin 500 MG in Sodium Chloride 0.9% 250 ML IV SCH (18:15)
[2017-07-30] MEDS ORDERED: cefTRIAXone 1 GM Vial IVPUSH SCH (18:15)
[2017-07-30] MEDS ORDERED: HYDROmorphone 0.5 MG/0.5 ML Syringe IVPUSH PRN (18:57)
[2017-07-30] MEDS ORDERED: Nitroglycerin 0.4 MG Tab.SL SL ONE (19:34)
[2017-07-30] MEDS ORDERED: Aspirin 325 MG Tab PO ONE (19:52)
[2017-07-30] MEDS ORDERED: HYDROmorphone 0.5 MG/0.5 ML Syringe IVPUSH ONE (19:55)
[2017-07-30] MEDS ORDERED: Heparin Sodium/D5W 25,000 UNITS/500 ML BAG IV SCH (20:00)
--- NOTE | 2017-07-30 20:10 | PCM.DCSUM1 ---
Discharge Summary - Hospital Course Free Text/Narrative:: Patient was admitted from the clinic with pneumonia. On arrival to medical for she was having active chest pain. EKG showed nonspecific changes. Troponin was elevated up to 0.11. Serum creatinine was also elevated. The patient continued to have active chest pain hence will be transferred to a higher level of care. #. Probable community-acquired pneumonia Vision has been coughing for one week. He has also been short of breath. Chest x-ray showed left lower lobe infiltrate consistent with pneumonia. Cannot rule out Kyleigh physician #. Probable right lower extremity cellulitis. Patient has a scab on the right foot. There is surrounding erythema which is extending upward to the leg. #. Acute on chronic renal failure Serum creatinine has come up to 3.6 from baseline of 1.6 Reason for this is not obvious #. Diabetes mellitus type 1 Patient has been on insulin therapy Blood sugars have been erratic #. Hypertension Blood pressure is poorly controlled #. Chest pain complaining of chest pain on arrival to the hospital He has multiple risk factors. We'll proceed to rule out acute coronary syndrome - Discharge Data Discharge Date: 07/30/17 Discharge Disposition: DC/Tfer to Acute Hospital 02 Condition: Good - Discharge Plan Home Medications: Home Meds amLODIPine [Norvasc] 10 mg PO DAILY 02/02/17 [History] oxyCODONE HCl/Acetaminophen [Percocet 10-325 mg Tablet] 1 each PO Q6H PRN [History] Acetaminophen [Tylenol] 650 mg PO Q4H PRN #20 tablet 02/10/17 [Rx] Acetaminophen/oxyCODONE [Percocet 325-5 MG] 1 tab PO Q4H PRN #10 tablet [Rx] Insulin Aspart [NovoLOG] 10 unit SUBCUT TIDAC #1 pen 02/10/17 [Rx] Insulin Detemir [Levemir] 20 unit SUBCUT BID #1 pen 02/10/17 [Rx] Lisinopril [Prinivil] 20 mg PO DAILY #30 tablet 02/10/17 [Rx] Metoprolol Tartrate [Lopressor] 25 mg PO Q12H #30 tablet 02/10/17 [Rx] Piperacillin/Tazobactam [Zosyn] 3.375 gm IV Q8H vial 10/07/17 [Rx] - Review of Systems Cardiovascular: Reports: Chest Pain, Dyspnea on Exertion - Patient Data Vitals - Most Recent: Last Vital Signs Temp 38.4 C H 07/30/17 19:56 Pulse 108 H 07/30/17 19:56 Resp 32 H 07/30/17 19:56 BP 147/92 H 07/30/17 19:56 Pulse Ox 94 L 07/30/17 19:56 Weight - Most Recent: 104.326 kg Lab Results - Last 24 hrs: Laboratory Results - last 24 hr 07/30/17 07/30/17 Range/Units 18:50 18:50 Lactic Acid 1.2 (0.5-2.2) mmol/L Troponin I 0.11 H* (0.00-0.02) ng/ml Med Orders - Current: Current Medications Acetaminophen (Tylenol) 650 mg PO Q4H PRN PRN Reason: Pain (Mild 1-3)/fever Ceftriaxone Sodium (Rocephin) 1 gm IVPUSH Q24H [facility]TA Last Admin: 07/30/17 18:22 Dose: 1 gm Hydromorphone HCl (Dilaudid) 0.5 mg IVPUSH Q6H PRN PRN Reason: Pain Last Admin: 07/30/17 19:12 Dose: 0.5 mg Sodium Chloride (Normal Saline) 1,000 mls @ 125 mls/hr IV ASDIRECTED [facility]ETTA Last Admin: 07/30/17 18:13 Dose: 125 mls/hr Azithromycin 500 mg/ Sodium (Chloride) 250 mls @ 250 mls/hr IV Q24H RENETTA Last Infusion: 07/30/17 18:24 Dose: 125 mls/hr Heparin Sodium/Dextrose (Heparin 25,000 Units In D5w 500 Ml) 25,000 units in 500 mls @ 37.557 mls/hr IV TITRATE RENETTA; 18 UNITS/KG/HR PRN Reason: Protocol Ondansetron HCl (Zofran) 4 mg IVPUSH Q6H PRN PRN Reason: Nausea/Vomiting Last Admin: 07/30/17 18:33 Dose: 4 mg Discontinued Medications Aspirin (Aspirin) 325 mg PO ONETIME ONE Stop: 07/30/17 19:53 Last Admin: 07/30/17 19:59 Dose: 325 mg Hydromorphone HCl (Dilaudid) 1 mg IVPUSH ONETIME ONE Stop: 07/30/17 19:56 Last Admin: 07/30/17 20:06 Dose: 1 mg Nitroglycerin (Nitrostat) 0.4 mg SL ONETIME ONE Stop: 07/30/17 19:35 Last Admin: 07/30/17 19:43 Dose: 0.4 mg - Exam General: Reports: Alert, Oriented Neck: Reports: Supple *Q Meaningful Use (DIS) - VTE *Q VTE Criteria *Q: - Stroke *Q Stroke Criteria *Q: - AMI *Q AMI Criteria *Q:
[2017-07-30 23:48] VITALS: BP 162/110
== END 2017-07-30 20:50 | DRG 194 ==
LOC: UNDOADMIN 17:45 → DL.MS 17:45
PROVIDERS: ADMIT Hospitalist; ATTEND Hospitalist
DX: J18.9 Pneumonia, unspecified organism (principal); L03.115 Cellulitis of right lower limb; R07.9 Chest pain, unspecified; I12.9 Hypertensive chronic kidney disease with stage 1 through stage 4 chronic kidney disease, or unspecified chronic kidney disease; E10.22 Type 1 diabetes mellitus with diabetic chronic kidney disease; N18.9 Chronic kidney disease, unspecified; E78.00 Pure hypercholesterolemia, unspecified; F17.200 Nicotine dependence, unspecified, uncomplicated; Z79.4 Long term (current) use of insulin; Z79.899 Other long term (current) drug therapy
CPT/HCPCS: 36415; 83605; 84484; 87040; A9270-GY; J0456; J0696; J1170; J1644; J2405; J7030; J7050

== ENCOUNTER 2017-08-09 12:57 | Inpatient (IN) | payer MEDICAID, OTHER ==
[2017-08-09] MEDS ORDERED: Non-Formulary Medication 1 Each (Acetaminophen/Oxycodone 1 EACH) PO PRN (18:03)
[2017-08-09] MEDS ORDERED: Insulin Aspart 100 Units/ML 3 ML Pen SUBCUT ONE ×2 (18:18→20:07)
--- NOTE | 2017-08-09 18:18 | PCM.HP ---
H&P History of Present Illness - General Admit Problem/Dx: Admission Diagnosis/Problem Admission Diagnosis/Problem Osteomyelitis Source of Information: Patient History Limitations: Reports: No Limitations - History of Present Illness Initial Comments - Free Text/Narative: 36 yo M with PMH of HTN, DM, HLD, hx of DM foot s/p Left BKA, CKA who was admitted at [facility] after he presented with cough, shortness of breath and chest pain of one day duration. He was found to have influenza B pneumonia with superimposed bacterial infection. He was managed with IV antibiotics with improvement. He stay was complicated with chest pain for which he was evaluated by cardiology and cleared. ID was concerned about possible underlying osteomyelitis. MRI was performed, which showed mild reactive bone marrow edema. ID is recommended IV cefazolin for a total of 6 weeks from July 30, 2017. He was subsequently discharge to our swing bed to complete the antibiotics. During his stay at [facility] he developed MARINO and was evaluated by nephrology. At bedside evaluation patient reports no symptoms. he says he feels fine. Onset of Symptoms: Reports: Gradual Duration of Symptoms: Reports: Day(s): Location: Reports: Chest, Lower Extremity, Right Quality: Reports: Dull Severity: Moderate Improves with: Reports: Rest Worsens with: Reports: Movement Context: Reports: Activity/Exercise Associated Symptoms: Reports: No Other Symptoms Chest Pain Score (Numeric/FACES): 7 Left Lower Leg Pain Score (Numeric/FACES): 4 - Related Data Allergies/Adverse Reactions: Allergies Allergy/AdvReac Type Severity Reaction Status Date / Time No Known Allergies Allergy Verified 08/09/17 08:06 Home Medications: Home Meds oxyCODONE HCl/Acetaminophen [Percocet 10-325 mg Tablet] 1 each PO Q8HR PRN 02/02 [History] Acetaminophen [Tylenol] 650 mg PO Q4H PRN #20 tablet 02/10/17 [Rx] Aspirin [Halfprin] 81 mg PO DAILY 08/09/17 [History] Carvedilol 25 mg PO BID 08/09/17 [History] Insulin Aspart [NovoLOG] 14 unit SUBCUT TIDAC 08/09/17 [History] Insulin Detemir [Levemir] 27 unit SUBCUT BID 08/09/17 [History] Lisinopril [Prinivil] 40 mg PO DAILY 08/09/17 [History] Mupirocin Oint [Bactroban Oint] 1 applic TOP BID 08/09/17 [History] Spironolactone [Aldactone] 25 mg PO DAILY 08/09/17 [History] Torsemide 40 mg PO DAILY 08/09/17 [History] atorvaSTATin [Lipitor] 40 mg PO BEDTIME 08/09/17 [History] hydrALAZINE [Apresoline] 100 mg PO Q8HR 08/09/17 [History] Past Medical History HEENT History: Reports: Sinusitis, Other (See Below) Other HEENT History: wears glasses, tinnitus Cardiovascular History: Reports: High Cholesterol, Hypertension Respiratory History: Reports: None Gastrointestinal History: Reports: Cholelithiasis Genitourinary History: Reports: None Musculoskeletal History: Reports: Amputation, Other (See Below) Other Musculoskeletal History: right side, great toe and 2nd toe Neurological History: Reports: Seizure Psychiatric History: Reports: None Endocrine/Metabolic History: Reports: Diabetes, Type II Hematologic History: Reports: None Immunologic History: Reports: None Oncologic (Cancer) History: Reports: None Dermatologic History: Reports: Cellulitis - Infectious Disease History Infectious Disease History: Reports: MRSA - Past Surgical History HEENT Surgical History: Reports: None Cardiovascular Surgical History: Reports: None Respiratory Surgical History: Reports: None GI Surgical History: Reports: Appendectomy, Cholecystectomy Male Surgical History: Reports: None Endocrine Surgical History: Reports: None Neurological Surgical History: Reports: None Musculoskeletal Surgical History: Reports: Amputation, Other (See Below) Other Musculoskeletal Surgeries/Procedures:: left partial calcanectomy Oncologic Surgical History: Reports: None Dermatological Surgical History: Reports: None Social & Family History - Family History Family Medical History: Noncontributory - Tobacco Use Smoking Status *Q: Current Every Day Smoker Years of Tobacco use: 18 Packs/Tins Daily: 1.5 Used Tobacco, but Quit: No Second Hand Smoke Exposure: No - Caffeine Use Caffeine Use: Reports: Soda Other Caffeine Use: diet pop - Alcohol Use Days Per Week of Alcohol Use: 0 Number of Drinks Per Day: 6 Total Drinks Per Week: 0 - Recreational Drug Use Recreational Drug Use: No H&P Review of Systems - Review of Systems: Review Of Systems: See Below General: Reports: No Symptoms HEENT: Reports: No Symptoms Pulmonary: Reports: Pleuritic Chest Pain, Cough Cardiovascular: Reports: No Symptoms Gastrointestinal: Reports: No Symptoms Genitourinary: Reports: No Symptoms Musculoskeletal: Reports: No Symptoms Skin: Reports: No Symptoms Psychiatric: Reports: No Symptoms Neurological: Reports: No Symptoms Hematologic/Lymphatic: Reports: No Symptoms Immunologic: Reports: No Symptoms Exam - Exam Exam: See Below - Vital Signs Vital Signs: Last Vital Signs Temp 98.3 F 08/09/17 13:16 Pulse 72 08/09/17 13:16 Resp 16 08/09/17 13:16 BP 118/60 08/09/17 13:16 Pulse Ox 99 08/09/17 13:16 Weight: 218 lb - Exam Quality Assessment: DVT Prophylaxis General: Alert, Oriented, Cooperative HEENT: Conjunctiva Clear, Mucosa Moist & [place] Neck: Supple Lungs: Clear to Auscultation, Normal Respiratory Effort Cardiovascular: Regular Rate, Regular Rhythm GI/Abdominal Exam: Normal Bowel Sounds, Soft, Non-Tender, No Organomegaly, No Distention (Male) Exam: Deferred Rectal (Males) Exam: Deferred Back Exam: Normal Inspection Extremities: Other (Left BKA. dressing clean) Skin: Warm, Dry Neurological: Cranial Nerves Intact Neuro Extensive - Mental Status: Alert, Oriented x3, Normal Mood/Affect, Normal Cognition, Memory Intact Neuro Extensive - Motor, Sensory, Reflexes: CN II-XII Intact, Normal Gait, Normal Reflexes Psychiatric: Alert, Normal Affect, Normal Mood - Patient Data Lab Results Last 24 hrs: Laboratory Results - last 24 hr 08/09/17 Range/Units 16:55 POC Glucose 440 H* (70-105) mg/dl - Problem List (1) Cellulitis of left lower extremity SNOMED Code(s): 654259572 ICD Code: L03.116 - CELLULITIS OF LEFT LOWER LIMB Status: Acute Current Visit: No (2) Diabetic complication SNOMED Code(s): 17173020 ICD Code: E11.8 - TYPE 2 DIABETES MELLITUS WITH UNSPECIFIED COMPLICATIONS Status: Acute Current Visit: No Onset Date: 09/15/13 (3) Diabetic ulcer of left foot SNOMED Code(s): 028575739 ICD Code: E11.621 - TYPE 2 DIABETES MELLITUS WITH FOOT ULCER; L97.529 - NON- PRESSURE CHRONIC ULCER OTH PRT LEFT FOOT W UNSP SEVERITY Status: Acute Current Visit: No Qualifiers: Diabetes mellitus type: type 2 Qualified Code(s): E11.621 - Type 2 diabetes mellitus with foot ulcer; L97.529 - Non-pressure chronic ulcer of other part of left foot with unspecified severity (4) History of diabetes mellitus, type I SNOMED Code(s): 864734101 ICD Code: Z86.39 - PERSONAL HISTORY OF ENDO, NUTRITIONAL AND METABOLIC DISEASE Status: Acute Current Visit: No (5) Osteomyelitis of ankle AND/OR foot SNOMED Code(s): 77345007 ICD Code: M86.9 - OSTEOMYELITIS, UNSPECIFIED Status: Acute Current Visit : No Onset Date: 06/06/13 Problem Details: OSTEOMYELITIS LEFT CALCANEUS (6) Sinusitis SNOMED Code(s): 77884016 ICD Code: J32.9 - CHRONIC SINUSITIS, UNSPECIFIED Status: Acute Current Visit: No (7) Ulcer of heel SNOMED Code(s): 569011303 ICD Code: L97.409 - NON-PRS CHRONIC ULCER OF UNSP HEEL AND MIDFOOT W UNSP SEVERT Status: Acute Current Visit: No Onset Date: 06/06/13 Problem Details: LEFT HEEL (8) Anemia SNOMED Code(s): 604035145 ICD Code: D64.9 - ANEMIA, UNSPECIFIED Status: Chronic Current Visit: No Onset Date: 03/08/14 Problem List Initiated/Reviewed/Updated: Yes Orders Last 24hrs: Active Orders 24 hr Category Date Time Status Patient Status [ADT] Routine ADT 08/09/17 17:55 Ordered Ambulate [RC] ASDIRECTED Care 08/09/17 17:55 Ordered Antiembolic Devices [RC] .Routine Care 08/09/17 18:02 Ordered May Shower [RC] ASDIRECTED Care 08/09/17 17:55 Ordered VTE/DVT Education [RC] PER UNIT ROUTINE Care 08/09/17 18:02 Ordered Vital Signs [RC] Q4H Care 08/09/17 17:55 Ordered BASIC METABOLIC PANEL,BMP [CHEM] Routine Lab 08/09/17 17:55 Ordered CBC WITH AUTO DIFF [HEME] Routine Lab 08/09/17 17:55 Ordered INR,PT,PROTHROMBIN TIME [COAG] Routine Lab 08/09/17 17:55 Ordered Acetaminophen [Tylenol] Med 08/09/17 18:03 Ordered 650 mg PO Q4H PRN Acetaminophen/oxyCODONE Med 08/09/17 18:03 Ordered 1 each PO Q8HR PRN Aspirin [Halfprin] Med 08/10/17 09:00 Ordered 81 mg PO DAILY Carvedilol [Coreg] Med 08/09/17 21:00 Ordered 25 mg PO BID Heparin Sodium Med 08/09/17 21:00 Ordered 5,000 units SUBCUT Q12HR Insulin Aspart [NovoLOG] Med 08/10/17 08:00 Ordered 14 unit SUBCUT TIDAC Insulin Detemir [Levemir] Med 08/09/17 21:00 Ordered 27 unit SUBCUT BID Lisinopril [Prinivil] Med 08/10/17 09:00 Ordered 40 mg PO DAILY Mupirocin Oint [Bactroban Oint] Med 08/09/17 21:00 Ordered 1 applic TOP BID Spironolactone [Aldactone] Med 08/10/17 09:00 Ordered 25 mg PO DAILY Torsemide [Demadex] Med 08/10/17 09:00 Ordered 40 mg PO DAILY atorvaSTATin [Lipitor] Med 08/09/17 21:00 Ordered 40 mg PO BEDTIME hydrALAZINE [Apresoline] Med 08/09/17 22:00 Ordered 100 mg PO Q8HR DVT/VTE Prophylaxis Reflex [OM.PC] Routine Oth 08/09/17 17:55 Ordered Resuscitation Status Routine Resus Stat 08/09/17 17:55 Ordered Medication Orders Acetaminophen (Tylenol) 650 mg PO Q4H PRN PRN Reason: Pain (moderate 4-6) Aspirin (Halfprin) 81 mg PO DAILY [facility] Carvedilol (Coreg) 25 mg PO BID [facility] Heparin Sodium (Porcine) (Heparin Sodium) 5,000 units SUBCUT Q12HR [facility] Insulin Aspart (Novolog) 14 unit SUBCUT TIDAC [facility] Insulin Detemir (Levemir) 27 unit SUBCUT BID [facility] Lisinopril (Prinivil) 40 mg PO DAILY [facility] Mupirocin (Bactroban Oint) gm TOP BID [facility] Non-Formulary Medication (Acetaminophen/Oxycodone) 1 each PO Q8HR PRN PRN Reason: Pain Non-Formulary Medication (Atorvastatin [Lipitor]) 40 mg PO BEDTIME [facility] Non-Formulary Medication (Hydralazine [Apresoline]) 100 mg PO Q8HR [facility] Spironolactone (Aldactone) 25 mg PO DAILY [facility] Torsemide (Demadex) 40 mg PO DAILY [facility] Assessment/Plan Comment:: Assessment/Plan # Cough, Shortness of breath, pleuritic chest pain - Patient was admitted at [facility] and managed for Influenza B pneumonia -Symptoms have improved. # Chronic right foot ulcer -concerning for Osteomyelitis -ID recommend 6 weeks of IV cefazolin # DVT ppx -Heparin SQ #Diabetic diet #PT/OT # Code status - Full code
[2017-08-09] MEDS: Carvedilol 25 MG Tab PO SCH (18:45)
[2017-08-09] MEDS ORDERED: Acetaminophen/oxyCODONE 325-5 MG Tab PO PRN (19:51)
[2017-08-09] MEDS: atorvaSTATin 20 MG Tab PO SCH (21:40)
[2017-08-09] MEDS: hydrALAZINE 25 MG Tab PO SCH (21:40)
[2017-08-09] MEDS: Heparin Sodium 5,000 Units/ML Vial SUBCUT SCH (21:41)
[2017-08-09] MEDS: Insulin Aspart 100 Units/ML 3 ML Pen SUBCUT SCH (21:44)
[2017-08-09] MEDS: Insulin Detemir 100 Units/ML 3 ML Pen SUBCUT SCH (21:47)
[2017-08-09] MEDS: Mupirocin Oint 22 GM Tube TOP SCH (21:48)
[2017-08-09] MEDS: ceFAZolin 2 GM in Premix Bag 1 BAG IV SCH (21:55)
[2017-08-09] MEDS: Sodium Chloride 0.9% 10 ML Syringe FLUSH PRN (22:34)
[2017-08-09] MEDS ORDERED: guaiFENesin/Dextromethorphan 100-10 MG/5 ML Soln 5 ML Cup PO PRN (22:53)
[2017-08-09] MEDS: Benzonatate 100 MG Cap PO PRN (23:20)
[2017-08-09] MEDS: oxyCODONE 5 MG Tab PO PRN (23:20)
[2017-08-10] MEDS: hydrALAZINE 25 MG Tab PO SCH ×3 (06:09→22:13)
[2017-08-10] MEDS: oxyCODONE 5 MG Tab PO PRN ×4 (06:13→19:37)
[2017-08-10] MEDS: Insulin Aspart 100 Units/ML 3 ML Pen SUBCUT SCH ×7 (07:46→22:15)
[2017-08-10] MEDS: Spironolactone 25 MG Tab PO SCH (08:39)
[2017-08-10] MEDS: Torsemide 20 MG Tab PO SCH (08:40)
[2017-08-10] MEDS: Carvedilol 25 MG Tab PO SCH ×2 (08:40→17:21)
[2017-08-10] MEDS: Aspirin 81 MG Tab.EC PO SCH (08:40)
[2017-08-10] MEDS: Heparin Sodium 5,000 Units/ML Vial SUBCUT SCH ×2 (08:41→22:12)
[2017-08-10] MEDS: Lisinopril 10 MG Tab PO SCH (08:41)
[2017-08-10] MEDS: Insulin Detemir 100 Units/ML 3 ML Pen SUBCUT SCH ×2 (08:50→22:14)
[2017-08-10] MEDS: ceFAZolin 2 GM in Premix Bag 1 BAG IV SCH ×2 (09:59→22:16)
[2017-08-10] MEDS: Sodium Chloride 0.9% 10 ML Syringe FLUSH PRN (10:00)
[2017-08-10] MEDS: Mupirocin Oint 22 GM Tube TOP SCH ×2 (10:06→22:12)
[2017-08-10] MEDS ORDERED: Insulin Aspart 100 Units/ML 3 ML Pen SUBCUT ONE (16:05)
[2017-08-10] MEDS: Benzonatate 100 MG Cap PO PRN (22:13)
[2017-08-10] MEDS: atorvaSTATin 20 MG Tab PO SCH (22:13)
[2017-08-10] MEDS: Acetaminophen/oxyCODONE 325-5 MG Tab PO PRN (22:42)
[2017-08-11] MEDS: oxyCODONE 5 MG Tab PO PRN ×4 (02:17→17:21)
[2017-08-11] MEDS: hydrALAZINE 25 MG Tab PO SCH ×3 (06:17→21:04)
[2017-08-11] MEDS: Acetaminophen 325 MG Tab PO PRN ×2 (08:10→17:20)
[2017-08-11] MEDS: Lisinopril 10 MG Tab PO SCH (08:11)
[2017-08-11] MEDS: Aspirin 81 MG Tab.EC PO SCH (08:11)
[2017-08-11] MEDS: Torsemide 20 MG Tab PO SCH (08:11)
[2017-08-11] MEDS: Carvedilol 25 MG Tab PO SCH ×2 (08:12→17:19)
[2017-08-11] MEDS: Heparin Sodium 5,000 Units/ML Vial SUBCUT SCH ×2 (08:13→21:01)
[2017-08-11] MEDS: Benzonatate 100 MG Cap PO PRN ×2 (08:13→14:00)
[2017-08-11] MEDS: Insulin Aspart 100 Units/ML 3 ML Pen SUBCUT SCH ×7 (08:13→22:38)
[2017-08-11] MEDS: Spironolactone 25 MG Tab PO SCH (08:13)
[2017-08-11] MEDS: Insulin Detemir 100 Units/ML 3 ML Pen SUBCUT SCH ×2 (08:19→21:02)
[2017-08-11] MEDS: Mupirocin Oint 22 GM Tube TOP SCH ×2 (09:14→21:04)
[2017-08-11] MEDS: ceFAZolin 2 GM in Premix Bag 1 BAG IV SCH ×2 (09:56→21:09)
[2017-08-11] MEDS: Sodium Chloride 0.9% 10 ML Syringe FLUSH PRN (09:56)
[2017-08-11] MEDS: Acetaminophen/oxyCODONE 325-5 MG Tab PO PRN ×2 (14:00→20:59)
[2017-08-11] MEDS: atorvaSTATin 20 MG Tab PO SCH (21:01)
[2017-08-12] MEDS: oxyCODONE 5 MG Tab PO PRN ×4 (05:26→21:23)
[2017-08-12] MEDS: hydrALAZINE 25 MG Tab PO SCH ×3 (05:32→21:25)
[2017-08-12] MEDS: Insulin Aspart 100 Units/ML 3 ML Pen SUBCUT SCH ×7 (08:21→21:26)
[2017-08-12] MEDS: Torsemide 20 MG Tab PO SCH (08:35)
[2017-08-12] MEDS: Carvedilol 25 MG Tab PO SCH ×2 (08:35→17:34)
[2017-08-12] MEDS: Lisinopril 10 MG Tab PO SCH (08:36)
[2017-08-12] MEDS: Aspirin 81 MG Tab.EC PO SCH (08:36)
[2017-08-12] MEDS: Spironolactone 25 MG Tab PO SCH (08:37)
[2017-08-12] MEDS: Acetaminophen/oxyCODONE 325-5 MG Tab PO PRN ×2 (08:37→14:25)
[2017-08-12] MEDS: Heparin Sodium 5,000 Units/ML Vial SUBCUT SCH ×2 (08:38→21:25)
[2017-08-12] MEDS: Insulin Detemir 100 Units/ML 3 ML Pen SUBCUT SCH ×2 (08:40→21:27)
[2017-08-12] MEDS: Mupirocin Oint 22 GM Tube TOP SCH ×2 (08:43→21:29)
[2017-08-12] MEDS: ceFAZolin 2 GM in Premix Bag 1 BAG IV SCH ×2 (09:47→21:23)
[2017-08-12] MEDS: Sodium Chloride 0.9% 10 ML Syringe FLUSH PRN (09:48)
[2017-08-12] MEDS: atorvaSTATin 20 MG Tab PO SCH (21:25)
[2017-08-13] MEDS: Acetaminophen/oxyCODONE 325-5 MG Tab PO PRN ×4 (00:13→20:26)
[2017-08-13] MEDS: oxyCODONE 5 MG Tab PO PRN ×4 (03:06→22:25)
[2017-08-13] MEDS: hydrALAZINE 25 MG Tab PO SCH ×3 (06:25→21:31)
[2017-08-13] MEDS: Torsemide 20 MG Tab PO SCH (09:08)
[2017-08-13] MEDS: Lisinopril 10 MG Tab PO SCH (09:09)
[2017-08-13] MEDS: Aspirin 81 MG Tab.EC PO SCH (09:09)
[2017-08-13] MEDS: Spironolactone 25 MG Tab PO SCH (09:09)
[2017-08-13] MEDS: Carvedilol 25 MG Tab PO SCH ×2 (09:09→17:51)
[2017-08-13] MEDS: Heparin Sodium 5,000 Units/ML Vial SUBCUT SCH ×2 (09:10→21:35)
[2017-08-13] MEDS: Insulin Detemir 100 Units/ML 3 ML Pen SUBCUT SCH ×2 (09:11→21:37)
[2017-08-13] MEDS: Insulin Aspart 100 Units/ML 3 ML Pen SUBCUT SCH ×7 (09:11→21:47)
[2017-08-13] MEDS: Mupirocin Oint 22 GM Tube TOP SCH ×2 (09:24→21:39)
--- NOTE | 2017-08-13 09:24 | PCM.PN ---
- General Info Date of Service: 08/13/17 Admission Dx/Problem (Free Text): Admission Diagnosis/Problem Admission Diagnosis/Problem Osteomyelitis Subjective Update: 36 yo M with PMH of HTN, DM, HLD, hx of DM foot s/p Left BKA, CKA who was admitted at [facility] after he presented with cough, shortness of breath and chest pain of one day duration. He was found to have influenza B pneumonia with superimposed bacterial infection. He was managed with IV antibiotics with improvement. ID was concerned about possible underlying osteomyelitis. MRI was performed showed mild reactive bone marrow edema. ID recommended IV cefazolin for a total of 6 weeks from July 30. He stay was complicated with chest pain and MARINO. He was evaluated by cardiology and cleared for chest pain. His MARINO was also evaluated by nephology. His kidney function did not improved but was stable. Creatinine at discharge was 3.47. He was subsequently discharge to our swing bed to complete the antibiotics. No overnight event. Functional Status: Reports: Pain Controlled - Review of Systems General: Reports: No Symptoms HEENT: Reports: No Symptoms Pulmonary: Reports: No Symptoms Cardiovascular: Reports: No Symptoms Gastrointestinal: Reports: No Symptoms Genitourinary: Reports: No Symptoms Musculoskeletal: Reports: No Symptoms Skin: Reports: No Symptoms Neurological: Reports: No Symptoms Psychiatric: Reports: No Symptoms - Patient Data Vitals - Most Recent: Last Vital Signs Temp 98.4 F 08/13/17 07:46 Pulse 76 08/13/17 07:46 Resp 20 08/13/17 07:46 BP 129/64 08/13/17 07:46 Pulse Ox 98 08/13/17 07:46 Weight - Most Recent: 218 lb I&O - Last 24 Hours: Intake & Output 08/12/17 08/13/17 08/13/17 22:59 06:59 14:59 Intake Total 756 55 325 Balance 756 55 325 Lab Results Last 24 Hours: Laboratory Results - last 24 hr 08/12/17 08/12/17 08/12/17 Range/Units 11:44 17:16 21:06 POC Glucose 69 L 193 H 234 H (70-105) mg/dl 08/13/17 Range/Units 07:40 POC Glucose 273 H (70-105) mg/dl Med Orders - Current: Current Medications Acetaminophen (Tylenol) 650 mg PO Q4H PRN PRN Reason: Pain (moderate 4-6) Last Admin: 08/11/17 17:20 Dose: 650 mg Aspirin (Halfprin) 81 mg PO DAILY [facility] Last Admin: 08/12/17 08:36 Dose: 81 mg Atorvastatin Calcium (Lipitor) 40 mg PO BEDTIME [facility] Last Admin: 08/12/17 21:25 Dose: 40 mg Benzonatate (Tessalon Perles) 100 mg PO TID PRN PRN Reason: Cough Last Admin: 08/11/17 14:00 Dose: 100 mg Carvedilol (Coreg) 25 mg PO BIDMEALS [facility] Last Admin: 08/12/17 17:34 Dose: 25 mg Guaifenesin/Phenylephrine HCl (Robitussin Dm) 10 ml PO Q6H PRN PRN Reason: Pain Heparin Sodium (Porcine) (Heparin Sodium) 5,000 units SUBCUT Q12HR [facility] Last Admin: 08/12/17 21:25 Dose: 5,000 units Hydralazine HCl (Apresoline) 100 mg PO Q8HR [facility] Last Admin: 08/13/17 06:25 Dose: 100 mg Cefazolin Sodium/Dextrose 2 gm (/ Premix) 50 mls @ 100 mls/hr IV Q12H [facility] Last Admin: 08/12/17 21:23 Dose: 100 mls/hr Insulin Aspart (Novolog) 0 unit SUBCUT QIDACANDBED [facility]; Protocol Last Admin: 08/12/17 21:26 Dose: 6 units Insulin Aspart (Novolog) 20 unit SUBCUT TIDAC [facility] Last Admin: 08/12/17 17:37 Dose: 20 units Insulin Detemir (Levemir) 32 unit SUBCUT BID [facility] Last Admin: 08/12/17 21:27 Dose: 32 units Lisinopril (Prinivil) 40 mg PO DAILY [facility] Last Admin: 08/12/17 08:36 Dose: 40 mg Mupirocin (Bactroban Oint) 0 gm TOP BID [facility] Last Admin: 08/12/17 21:29 Dose: Not Given Oxycodone HCl (Oxycodone) 10 mg PO Q4H PRN PRN Reason: Pain Last Admin: 08/13/17 03:06 Dose: 10 mg Oxycodone/Acetaminophen (Percocet 325-5 Mg) 1 tab PO Q6H PRN PRN Reason: Pain Last Admin: 08/13/17 06:27 Dose: 1 tab Sodium Chloride (Saline Flush) 10 ml FLUSH ASDIRECTED PRN PRN Reason: IV Use Last Admin: 08/12/17 09:48 Dose: 10 ml Spironolactone (Aldactone) 25 mg PO DAILY [facility] Last Admin: 08/12/17 08:37 Dose: 25 mg Torsemide (Demadex) 40 mg PO DAILY [facility] Last Admin: 08/12/17 08:35 Dose: 40 mg Discontinued Medications Insulin Aspart (Novolog) 14 unit SUBCUT TIDAC [facility] Last Admin: 08/11/17 08:13 Dose: 14 units Insulin Aspart (Novolog) 14 unit SUBCUT ONETIME ONE Stop: 08/09/17 18:19 Last Admin: 08/09/17 18:44 Dose: 14 units Insulin Aspart (Novolog) 30 unit SUBCUT ONETIME ONE Stop: 08/09/17 20:08 Last Admin: 08/09/17 20:21 Dose: 30 units Insulin Detemir (Levemir) 27 unit SUBCUT BID [facility] Last Admin: 08/11/17 08:19 Dose: 27 units Oxycodone/Acetaminophen (Percocet 325-5 Mg) 1 tab PO Q8H PRN PRN Reason: Pain Last Admin: 08/09/17 20:18 Dose: 1 tab - Exam General: Alert, Oriented HEENT: Pupils Equal, Pupils Reactive, EOMI, Mucous Membr. Moist/[place] Neck: Supple Lungs: Clear to Auscultation, Normal Respiratory Effort Cardiovascular: Regular Rate, Regular Rhythm GI/Abdominal Exam: Normal Bowel Sounds, Soft, Non-Tender, No Organomegaly, No Distention, No Abnormal Bruit, No Mass, Pelvis Stable (Male) Exam: No Hernia, Normal Inspection, Normal Prostate, Circumcised Back Exam: Normal Inspection, Full Range of Motion Extremities: Normal Inspection, Normal Range of Motion, Non-Tender, No Pedal Edema, Normal Capillary Refill Skin: Warm, Dry, Intact Wound/Incisions: Healing Well Neurological: No New Focal Deficit Psy/Mental Status: Alert, Normal Affect, Normal Mood - Problem List & Annotations (1) Cellulitis of left lower extremity SNOMED Code(s): 607711005 Code(s): L03.116 - CELLULITIS OF LEFT LOWER LIMB Status: Acute Current Visit: No (2) Diabetic complication SNOMED Code(s): 76063355 Code(s): E11.8 - TYPE 2 DIABETES MELLITUS WITH UNSPECIFIED COMPLICATIONS Status: Acute Current Visit: No Onset Date: 09/15/13 (3) Diabetic ulcer of left foot SNOMED Code(s): 518679744 Code(s): E11.621 - TYPE 2 DIABETES MELLITUS WITH FOOT ULCER; L97.529 - NON- PRESSURE CHRONIC ULCER OTH PRT LEFT FOOT W UNSP SEVERITY Status: Acute Current Visit: No Qualifiers: Diabetes mellitus type: type 2 Qualified Code(s): E11.621 - Type 2 diabetes mellitus with foot ulcer; L97.529 - Non-pressure chronic ulcer of other part of left foot with unspecified severity (4) History of diabetes mellitus, type I SNOMED Code(s): 519565079 Code(s): Z86.39 - PERSONAL HISTORY OF ENDO, NUTRITIONAL AND METABOLIC DISEASE Status: Acute Current Visit: No (5) Osteomyelitis of ankle AND/OR foot SNOMED Code(s): 19690356 Code(s): M86.9 - OSTEOMYELITIS, UNSPECIFIED Status: Acute Current Visit: No Onset Date: 06/06/13 Annotation/Comment:: OSTEOMYELITIS LEFT CALCANEUS (6) Sinusitis SNOMED Code(s): 86384199 Code(s): J32.9 - CHRONIC SINUSITIS, UNSPECIFIED Status: Acute Current Visit: No (7) Ulcer of heel SNOMED Code(s): 533651885 Code(s): L97.409 - NON-PRS CHRONIC ULCER OF UNSP HEEL AND MIDFOOT W UNSP SEVERT Status: Acute Current Visit: No Onset Date: 06/06/13 Annotation/ Comment:: LEFT HEEL (8) Anemia SNOMED Code(s): 625023654 Code(s): D64.9 - ANEMIA, UNSPECIFIED Status: Chronic Current Visit: No Onset Date: 03/08/14 - Problem List Review Problem List Initiated/Reviewed/Updated: Yes - Plan Plan:: Assessment/Plan # Cough, Shortness of breath, pleuritic chest pain - Patient was admitted at [facility] and managed for Influenza B pneumonia -Symptoms have improved. # Chronic right foot ulcer -concerning for Osteomyelitis -ID recommend 6 weeks of IV cefazolin -Conitnue # DVT ppx -Heparin SQ #Diabetic diet -Not well controlled. is glucose has been difficult to control as per discharge note -will continue his medication and adjust accordingly -Patient educated on the need to comply with diet. #PT/OT # Code status - Full code
[2017-08-13] MEDS: ceFAZolin 2 GM in Premix Bag 1 BAG IV SCH ×2 (09:25→21:42)
[2017-08-13] MEDS: Sodium Chloride 0.9% 10 ML Syringe FLUSH PRN ×2 (09:25→21:41)
[2017-08-13] MEDS: atorvaSTATin 20 MG Tab PO SCH (21:33)
[2017-08-14] MEDS: oxyCODONE 5 MG Tab PO PRN ×5 (02:23→21:48)
[2017-08-14] MEDS: hydrALAZINE 25 MG Tab PO SCH ×3 (06:10→21:20)
[2017-08-14] MEDS: Acetaminophen/oxyCODONE 325-5 MG Tab PO PRN ×2 (08:30→18:24)
[2017-08-14] MEDS: Insulin Aspart 100 Units/ML 3 ML Pen SUBCUT SCH ×7 (08:33→21:28)
[2017-08-14] MEDS: Insulin Detemir 100 Units/ML 3 ML Pen SUBCUT SCH (08:37)
[2017-08-14] MEDS: Torsemide 20 MG Tab PO SCH (08:39)
[2017-08-14] MEDS: Aspirin 81 MG Tab.EC PO SCH (08:39)
[2017-08-14] MEDS: Carvedilol 25 MG Tab PO SCH ×2 (08:40→17:37)
[2017-08-14] MEDS: Heparin Sodium 5,000 Units/ML Vial SUBCUT SCH ×2 (08:41→21:24)
[2017-08-14] MEDS: Lisinopril 10 MG Tab PO SCH (08:41)
[2017-08-14] MEDS: Spironolactone 25 MG Tab PO SCH (08:41)
[2017-08-14] MEDS: Mupirocin Oint 22 GM Tube TOP SCH ×2 (08:42→21:16)
[2017-08-14] MEDS: ceFAZolin 2 GM in Premix Bag 1 BAG IV SCH ×2 (10:03→21:08)
[2017-08-14] MEDS ORDERED: 25% Dextrose in Water 10 ML Syringe IVPUSH PRN (10:50)
[2017-08-14] MEDS ORDERED: Insulin Aspart 100 Units/ML 3 ML Pen SUBCUT SCH (11:00)
[2017-08-14] MEDS ORDERED: Insulin Detemir 100 Units/ML 3 ML Pen SUBCUT SCH ×2 (21:00)
[2017-08-14] MEDS: Sodium Chloride 0.9% 10 ML Syringe FLUSH PRN ×2 (21:08→21:44)
[2017-08-14] MEDS: atorvaSTATin 20 MG Tab PO SCH (21:20)
[2017-08-15] MEDS: Acetaminophen/oxyCODONE 325-5 MG Tab PO PRN ×3 (01:27→17:55)
[2017-08-15] MEDS: hydrALAZINE 25 MG Tab PO SCH ×3 (06:28→21:16)
[2017-08-15] MEDS: oxyCODONE 5 MG Tab PO PRN ×3 (06:43→21:48)
[2017-08-15] MEDS: Insulin Aspart 100 Units/ML 3 ML Pen SUBCUT SCH ×7 (08:22→21:34)
[2017-08-15] MEDS: Aspirin 81 MG Tab.EC PO SCH (08:44)
[2017-08-15] MEDS: Torsemide 20 MG Tab PO SCH (08:44)
[2017-08-15] MEDS: Spironolactone 25 MG Tab PO SCH (08:45)
[2017-08-15] MEDS: Carvedilol 25 MG Tab PO SCH ×2 (08:45→17:24)
[2017-08-15] MEDS: Lisinopril 10 MG Tab PO SCH (08:45)
[2017-08-15] MEDS: Heparin Sodium 5,000 Units/ML Vial SUBCUT SCH ×2 (08:46→21:28)
[2017-08-15] MEDS: Mupirocin Oint 22 GM Tube TOP SCH ×2 (08:47→21:31)
[2017-08-15] MEDS: ceFAZolin 2 GM in Premix Bag 1 BAG IV SCH ×2 (09:41→21:22)
[2017-08-15] MEDS: Insulin Detemir 100 Units/ML 3 ML Pen SUBCUT SCH ×2 (10:06→21:36)
[2017-08-15] MEDS: atorvaSTATin 20 MG Tab PO SCH (21:17)
[2017-08-15] MEDS: Sodium Chloride 0.9% 10 ML Syringe FLUSH PRN ×2 (21:19→21:52)
[2017-08-16] MEDS: Acetaminophen/oxyCODONE 325-5 MG Tab PO PRN ×2 (03:54→11:06)
[2017-08-16] MEDS: hydrALAZINE 25 MG Tab PO SCH ×3 (05:47→21:35)
[2017-08-16] MEDS: Lisinopril 10 MG Tab PO SCH (08:04)
[2017-08-16] MEDS: Carvedilol 25 MG Tab PO SCH ×2 (08:05→17:26)
[2017-08-16] MEDS: Torsemide 20 MG Tab PO SCH (08:06)
[2017-08-16] MEDS: oxyCODONE 5 MG Tab PO PRN ×4 (08:06→21:35)
[2017-08-16] MEDS: Spironolactone 25 MG Tab PO SCH (08:09)
[2017-08-16] MEDS: Aspirin 81 MG Tab.EC PO SCH (08:09)
[2017-08-16] MEDS: Heparin Sodium 5,000 Units/ML Vial SUBCUT SCH ×2 (08:09→21:36)
[2017-08-16] MEDS: Mupirocin Oint 22 GM Tube TOP SCH ×2 (08:10→21:37)
[2017-08-16] MEDS: Insulin Detemir 100 Units/ML 3 ML Pen SUBCUT SCH ×2 (08:11→21:59)
[2017-08-16] MEDS: Insulin Aspart 100 Units/ML 3 ML Pen SUBCUT SCH ×7 (08:12→21:58)
[2017-08-16] MEDS: ceFAZolin 2 GM in Premix Bag 1 BAG IV SCH ×2 (10:13→22:01)
[2017-08-16] MEDS: Acetaminophen 325 MG Tab PO PRN (21:34)
[2017-08-16] MEDS: atorvaSTATin 20 MG Tab PO SCH (21:35)
[2017-08-16] MEDS: Sodium Chloride 0.9% 10 ML Syringe FLUSH PRN (22:02)
[2017-08-17] MEDS: Acetaminophen/oxyCODONE 325-5 MG Tab PO PRN ×3 (01:11→21:13)
[2017-08-17] MEDS: oxyCODONE 5 MG Tab PO PRN ×3 (04:39→17:49)
[2017-08-17] MEDS: hydrALAZINE 25 MG Tab PO SCH ×3 (05:55→21:18)
[2017-08-17] MEDS: Insulin Aspart 100 Units/ML 3 ML Pen SUBCUT SCH ×7 (09:23→21:20)
[2017-08-17] MEDS: Carvedilol 25 MG Tab PO SCH ×2 (09:25→17:49)
[2017-08-17] MEDS: Aspirin 81 MG Tab.EC PO SCH (09:26)
[2017-08-17] MEDS: Torsemide 20 MG Tab PO SCH (09:26)
[2017-08-17] MEDS: Spironolactone 25 MG Tab PO SCH (09:26)
[2017-08-17] MEDS: Lisinopril 10 MG Tab PO SCH (09:27)
[2017-08-17] MEDS: Heparin Sodium 5,000 Units/ML Vial SUBCUT SCH ×2 (09:28→21:16)
[2017-08-17] MEDS: Insulin Detemir 100 Units/ML 3 ML Pen SUBCUT SCH ×2 (09:30→21:19)
[2017-08-17] MEDS: ceFAZolin 2 GM in Premix Bag 1 BAG IV SCH ×2 (09:48→21:17)
[2017-08-17] MEDS: Sodium Chloride 0.9% 10 ML Syringe FLUSH PRN ×3 (09:52→21:21)
[2017-08-17] MEDS: Mupirocin Oint 22 GM Tube TOP SCH ×2 (13:04→21:17)
[2017-08-17] MEDS: atorvaSTATin 20 MG Tab PO SCH (21:13)
[2017-08-18] MEDS: oxyCODONE 5 MG Tab PO PRN ×3 (00:23→16:47)
[2017-08-18] MEDS: hydrALAZINE 25 MG Tab PO SCH ×3 (06:10→21:06)
[2017-08-18] MEDS: Acetaminophen/oxyCODONE 325-5 MG Tab PO PRN ×3 (06:10→21:06)
[2017-08-18] MEDS: Insulin Aspart 100 Units/ML 3 ML Pen SUBCUT SCH ×5 (07:43→21:11)
[2017-08-18] MEDS: Carvedilol 25 MG Tab PO SCH ×2 (09:17→17:18)
[2017-08-18] MEDS: Lisinopril 10 MG Tab PO SCH (09:17)
[2017-08-18] MEDS: Spironolactone 25 MG Tab PO SCH (09:17)
[2017-08-18] MEDS: Heparin Sodium 5,000 Units/ML Vial SUBCUT SCH ×2 (09:18→21:07)
[2017-08-18] MEDS: Aspirin 81 MG Tab.EC PO SCH (09:18)
[2017-08-18] MEDS: Torsemide 20 MG Tab PO SCH (09:18)
[2017-08-18] MEDS: Mupirocin Oint 22 GM Tube TOP SCH ×2 (09:19→21:10)
[2017-08-18] MEDS: Insulin Detemir 100 Units/ML 3 ML Pen SUBCUT SCH ×2 (09:19→21:11)
[2017-08-18] MEDS: ceFAZolin 2 GM in Premix Bag 1 BAG IV SCH ×2 (09:59→21:09)
[2017-08-18] MEDS: atorvaSTATin 20 MG Tab PO SCH (21:06)
[2017-08-19] MEDS: oxyCODONE 5 MG Tab PO PRN ×4 (02:31→22:07)
[2017-08-19] MEDS: hydrALAZINE 25 MG Tab PO SCH ×3 (06:20→22:07)
[2017-08-19] MEDS: Acetaminophen/oxyCODONE 325-5 MG Tab PO PRN ×3 (06:20→19:41)
[2017-08-19] MEDS: Insulin Aspart 100 Units/ML 3 ML Pen SUBCUT SCH ×4 (08:30→21:37)
[2017-08-19] MEDS: Mupirocin Oint 22 GM Tube TOP SCH ×2 (09:28→22:08)
[2017-08-19] MEDS: ceFAZolin 2 GM in Premix Bag 1 BAG IV SCH ×2 (09:29→22:08)
[2017-08-19] MEDS: Heparin Sodium 5,000 Units/ML Vial SUBCUT SCH ×2 (09:31→22:07)
[2017-08-19] MEDS: Aspirin 81 MG Tab.EC PO SCH (09:31)
[2017-08-19] MEDS: Lisinopril 10 MG Tab PO SCH (09:32)
[2017-08-19] MEDS: Spironolactone 25 MG Tab PO SCH (09:33)
[2017-08-19] MEDS: Torsemide 20 MG Tab PO SCH (09:33)
[2017-08-19] MEDS: Carvedilol 25 MG Tab PO SCH ×2 (09:33→18:00)
[2017-08-19] MEDS: Insulin Detemir 100 Units/ML 3 ML Pen SUBCUT SCH ×2 (09:39→22:08)
[2017-08-19] MEDS: atorvaSTATin 20 MG Tab PO SCH (22:07)
[2017-08-20] MEDS: Acetaminophen/oxyCODONE 325-5 MG Tab PO PRN ×3 (01:58→17:49)
[2017-08-20] MEDS: hydrALAZINE 25 MG Tab PO SCH ×3 (06:01→21:52)
[2017-08-20] MEDS: oxyCODONE 5 MG Tab PO PRN ×3 (06:01→20:45)
[2017-08-20] MEDS: Heparin Sodium 5,000 Units/ML Vial SUBCUT SCH ×2 (08:19→21:51)
[2017-08-20] MEDS: Aspirin 81 MG Tab.EC PO SCH (08:19)
[2017-08-20] MEDS: Mupirocin Oint 22 GM Tube TOP SCH ×2 (08:20→21:52)
[2017-08-20] MEDS: Lisinopril 10 MG Tab PO SCH (08:20)
[2017-08-20] MEDS: Carvedilol 25 MG Tab PO SCH ×2 (08:20→17:49)
[2017-08-20] MEDS: Spironolactone 25 MG Tab PO SCH (08:20)
[2017-08-20] MEDS: Insulin Aspart 100 Units/ML 3 ML Pen SUBCUT SCH ×4 (08:21→21:48)
[2017-08-20] MEDS: Insulin Detemir 100 Units/ML 3 ML Pen SUBCUT SCH ×2 (08:22→21:47)
[2017-08-20] MEDS: Torsemide 20 MG Tab PO SCH (09:21)
[2017-08-20] MEDS: ceFAZolin 2 GM in Premix Bag 1 BAG IV SCH ×2 (09:21→21:53)
--- NOTE | 2017-08-20 12:56 | PCM.PN ---
- General Info Date of Service: 08/20/17 Admission Dx/Problem (Free Text): Admission Diagnosis/Problem Admission Diagnosis/Problem Osteomyelitis Subjective Update: 36 yo M with PMH of HTN, DM, HLD, hx of DM foot s/p Left BKA, CKA who was admitted at [facility] for influenza B pneumonia with superimposed bacterial infection. He was managed with IV antibiotics. ID was concerned about possible underlying osteomyelitis. MRI was performed showed mild reactive bone marrow edema. ID recommended IV cefazolin for a total of 6 weeks from July 30. He stay was complicated with chest pain and MARINO. He was evaluated by cardiology and cleared for chest pain. His MARINO was also evaluated by nephology. His kidney function did not improved but was stable. Creatinine at discharge was 3.47. He was subsequently discharge to our swing bed to complete the antibiotics. Patient stated that he has no new complaint. He denies nausea, vomiting, fever, chills, chest pain, shortness breath, abdominal pain, lower extremities pain, unilateral weakness/numbness/tingling, urinary symptoms, diarrhea, abdominal pain, any other symptoms or concerns. However nurses are concerned about drainage from his right foot. - Patient Data Vitals - Most Recent: Last Vital Signs Temp 36.6 C 08/20/17 07:52 Pulse 82 08/20/17 08:20 Resp 20 08/20/17 07:52 BP 139/72 08/20/17 08:20 Pulse Ox 99 08/20/17 07:52 Weight - Most Recent: 103.51 kg I&O - Last 24 Hours: Intake & Output 08/19/17 08/20/17 08/20/17 22:59 06:59 14:59 Intake Total 200 290 Balance 200 290 Lab Results Last 24 Hours: Laboratory Results - last 24 hr 08/19/17 08/19/17 08/20/17 Range/Units 16:59 20:59 06:20 WBC 3.7 L (5.0-10.0) 10^3/uL RBC 2.82 L (4.6-6.2) 10^6/uL Hgb 8.4 L (14.0-18.0) g/dL Hct 25.9 L (40.0-54.0) % MCV 91.8 (80-100) fL MCH 29.8 (27.0-34.0) pg MCHC 32.4 L (33.0-35.0) g/dL Plt Count 177 (150-450) 10^3/uL Neut % (Auto) 54.1 (42.2-75.2) % Lymph % (Auto) 32.6 (20.5-50.1) % Curry % (Auto) 8.4 H (2-8) % Eos % (Auto) 4.6 H (1.0-3.0) % Baso % (Auto) 0.3 (0.0-1.0) % POC Glucose 253 H 59 L (70-105) mg/dl 08/20/17 Range/Units 07:53 WBC (5.0-10.0) 10^3/uL RBC (4.6-6.2) 10^6/uL Hgb (14.0-18.0) g/dL Hct (40.0-54.0) % MCV (80-100) fL MCH (27.0-34.0) pg MCHC (33.0-35.0) g/dL Plt Count (150-450) 10^3/uL Neut % (Auto) (42.2-75.2) % Lymph % (Auto) (20.5-50.1) % Curry % (Auto) (2-8) % Eos % (Auto) (1.0-3.0) % Baso % (Auto) (0.0-1.0) % POC Glucose 180 H (70-105) mg/dl Med Orders - Current: Current Medications Acetaminophen (Tylenol) 650 mg PO Q4H PRN PRN Reason: Pain (moderate 4-6) Last Admin: 08/16/17 21:34 Dose: 650 mg Aspirin (Halfprin) 81 mg PO DAILY [facility] Last Admin: 08/20/17 08:19 Dose: 81 mg Atorvastatin Calcium (Lipitor) 40 mg PO BEDTIME [facility] Last Admin: 08/19/17 22:07 Dose: 40 mg Benzonatate (Tessalon Perles) 100 mg PO TID PRN PRN Reason: Cough Last Admin: 08/11/17 14:00 Dose: 100 mg Carvedilol (Coreg) 25 mg PO BIDMEALS [facility] Last Admin: 08/20/17 08:20 Dose: 25 mg Dextrose/Water (Dextrose 25% In Water) 10 ml IVPUSH ONETIME PRN PRN Reason: Hypoglycemia Guaifenesin/Phenylephrine HCl (Robitussin Dm) 10 ml PO Q6H PRN PRN Reason: Pain Heparin Sodium (Porcine) (Heparin Sodium) 5,000 units SUBCUT Q12HR [facility] Last Admin: 08/20/17 08:19 Dose: 5,000 units Hydralazine HCl (Apresoline) 100 mg PO Q8HR [facility] Last Admin: 08/20/17 06:01 Dose: 100 mg Cefazolin Sodium/Dextrose 2 gm (/ Premix) 50 mls @ 100 mls/hr IV Q12H [facility] Last Admin: 08/20/17 09:21 Dose: 100 mls/hr Insulin Aspart (Novolog) 0 unit SUBCUT QIDACANDBED [facility]; Protocol Last Admin: 08/20/17 12:30 Dose: Not Given Insulin Detemir (Levemir) 20 unit SUBCUT BID [facility] Last Admin: 08/20/17 08:22 Dose: 20 units Lisinopril (Prinivil) 40 mg PO DAILY [facility] Last Admin: 08/20/17 08:20 Dose: 40 mg Mupirocin (Bactroban Oint) 0 gm TOP BID [facility] Last Admin: 08/20/17 08:20 Dose: 1 applic Oxycodone HCl (Oxycodone) 10 mg PO Q4H PRN PRN Reason: Pain Last Admin: 08/20/17 06:01 Dose: 10 mg Oxycodone/Acetaminophen (Percocet 325-5 Mg) 1 tab PO Q6H PRN PRN Reason: Pain Last Admin: 08/20/17 09:21 Dose: 1 tab Sodium Chloride (Saline Flush) 10 ml FLUSH ASDIRECTED PRN PRN Reason: IV Use Last Admin: 08/17/17 21:21 Dose: 10 ml Spironolactone (Aldactone) 25 mg PO DAILY [facility] Last Admin: 08/20/17 08:20 Dose: 25 mg Torsemide (Demadex) 40 mg PO DAILY [facility] Last Admin: 08/20/17 09:21 Dose: 40 mg Discontinued Medications Insulin Aspart (Novolog) 14 unit SUBCUT TIDAC [facility] Last Admin: 08/11/17 08:13 Dose: 14 units Insulin Aspart (Novolog) 14 unit SUBCUT ONETIME ONE Stop: 08/09/17 18:19 Last Admin: 08/09/17 18:44 Dose: 14 units Insulin Aspart (Novolog) 30 unit SUBCUT ONETIME ONE Stop: 08/09/17 20:08 Last Admin: 08/09/17 20:21 Dose: 30 units Insulin Aspart (Novolog) 20 unit SUBCUT TIDAC [facility] Last Admin: 08/14/17 08:34 Dose: 20 units Insulin Aspart (Novolog) 25 unit SUBCUT TIDAC [facility] Insulin Aspart (Novolog) 15 unit SUBCUT TIDAC [facility] Last Admin: 08/15/17 08:23 Dose: Not Given Insulin Aspart (Novolog) 10 unit SUBCUT TIDAC [facility] Last Admin: 08/18/17 09:04 Dose: Not Given Insulin Detemir (Levemir) 27 unit SUBCUT BID [facility] Last Admin: 08/11/17 08:19 Dose: 27 units Insulin Detemir (Levemir) 32 unit SUBCUT BID [facility] Last Admin: 08/14/17 08:37 Dose: 32 units Insulin Detemir (Levemir) 35 unit SUBCUT BID [facility] Insulin Detemir (Levemir) 25 unit SUBCUT BID [facility] Last Admin: 08/14/17 21:26 Dose: 25 units Oxycodone/Acetaminophen (Percocet 325-5 Mg) 1 tab PO Q8H PRN PRN Reason: Pain Last Admin: 08/09/17 20:18 Dose: 1 tab - Exam General: Alert, Oriented, Cooperative, No Acute Distress HEENT: Pupils Equal, Pupils Reactive, EOMI, Mucous Membr. Moist/[place] Neck: Supple, Trachea Midline, No JVD Lungs: Clear to Auscultation, Normal Respiratory Effort Cardiovascular: Regular Rate, Regular Rhythm GI/Abdominal Exam: Normal Bowel Sounds, Soft, Non-Tender, No Organomegaly, No Distention, No Abnormal Bruit, No Mass (Male) Exam: Deferred Back Exam: Normal Inspection, Full Range of Motion Extremities: Non-Tender, Normal Capillary Refill, Other (Right lower extremity edema. Right foot heel has no active drainage however his dressing is wet without discoloration.) - Problem List Review Problem List Initiated/Reviewed/Updated: Yes - Plan Plan:: Assessment/Plan 36 yo M with PMH of HTN, DM, HLD, hx of DM foot s/p Left BKA, CKA who was admitted at [facility] for influenza B pneumonia with superimposed bacterial infection. He was managed with IV antibiotics. ID was concerned about possible underlying osteomyelitis. MRI was performed showed mild reactive bone marrow edema. ID recommended IV cefazolin for a total of 6 weeks from July 30. He stay was complicated with chest pain and MARINO. He was evaluated by cardiology and cleared for chest pain. His MARINO was also evaluated by nephology. His kidney function did not improved but was stable. Creatinine at discharge was 3.47. He was subsequently discharge to our swing bed to complete the antibiotics. # Chronic right foot ulcer -concerning for Osteomyelitis -ID recommend 6 weeks of IV cefazolin -Conitnue cefazolin for 6 weeks per ID recommendation -Deputy [employer] Dr. Zaidi is consulted -Continue to follow with ID specialist #Acute kidney injury Nephrology is following Avoid nephrotoxic medications #Anemia Could be related to his kidney disease Will watch hemoglobin and do blood transfusion if hemoglobin below 7 #Status post influenza B pneumonia and superimposed bacterial infection No respiratory symptoms - Patient was admitted at [facility] and managed for Influenza B pneumonia and treated with IV antibiotics. Currently is on antibiotic for osteomyelitis # DVT ppx -Heparin SQ #Diabetic diet -Not well controlled. is glucose has been difficult to control as per discharge note. He has been having hypoglycemia. Now is better -will continue his medication at this time and adjust accordingly #PT/OT are following # Code status - Full code
[2017-08-20] MEDS: atorvaSTATin 20 MG Tab PO SCH (21:52)
[2017-08-21] MEDS: Acetaminophen/oxyCODONE 325-5 MG Tab PO PRN ×3 (00:47→17:59)
[2017-08-21] MEDS: hydrALAZINE 25 MG Tab PO SCH ×3 (06:36→22:33)
[2017-08-21] MEDS: oxyCODONE 5 MG Tab PO PRN ×3 (06:38→20:44)
[2017-08-21] MEDS: Spironolactone 25 MG Tab PO SCH (09:58)
[2017-08-21] MEDS: Lisinopril 10 MG Tab PO SCH (09:58)
[2017-08-21] MEDS: Torsemide 20 MG Tab PO SCH (09:58)
[2017-08-21] MEDS: Aspirin 81 MG Tab.EC PO SCH (09:59)
[2017-08-21] MEDS: Carvedilol 25 MG Tab PO SCH ×2 (09:59→17:59)
[2017-08-21] MEDS: Insulin Detemir 100 Units/ML 3 ML Pen SUBCUT SCH ×2 (10:01→22:30)
[2017-08-21] MEDS: Heparin Sodium 5,000 Units/ML Vial SUBCUT SCH ×2 (10:02→20:43)
[2017-08-21] MEDS: ceFAZolin 2 GM in Premix Bag 1 BAG IV SCH ×2 (10:02→22:32)
[2017-08-21] MEDS: Sodium Chloride 0.9% 10 ML Syringe FLUSH PRN (10:04)
[2017-08-21] MEDS: Mupirocin Oint 22 GM Tube TOP SCH ×3 (10:13→20:43)
[2017-08-21] MEDS: Insulin Aspart 100 Units/ML 3 ML Pen SUBCUT SCH ×4 (10:56→22:31)
[2017-08-21] MEDS: atorvaSTATin 20 MG Tab PO SCH (20:44)
[2017-08-22] MEDS: Acetaminophen/oxyCODONE 325-5 MG Tab PO PRN ×4 (00:41→23:26)
[2017-08-22] MEDS: hydrALAZINE 25 MG Tab PO SCH ×3 (06:25→22:52)
[2017-08-22] MEDS: oxyCODONE 5 MG Tab PO PRN ×3 (06:35→20:08)
[2017-08-22] MEDS: Insulin Aspart 100 Units/ML 3 ML Pen SUBCUT SCH ×4 (08:51→22:55)
[2017-08-22] MEDS: Heparin Sodium 5,000 Units/ML Vial SUBCUT SCH ×2 (08:53→22:53)
[2017-08-22] MEDS: Mupirocin Oint 22 GM Tube TOP SCH ×2 (08:54→22:36)
[2017-08-22] MEDS: Aspirin 81 MG Tab.EC PO SCH (08:54)
[2017-08-22] MEDS: Carvedilol 25 MG Tab PO SCH ×2 (08:54→17:12)
[2017-08-22] MEDS: Torsemide 20 MG Tab PO SCH (08:54)
[2017-08-22] MEDS: Lisinopril 10 MG Tab PO SCH (08:54)
[2017-08-22] MEDS: Spironolactone 25 MG Tab PO SCH (08:54)
[2017-08-22] MEDS: Insulin Detemir 100 Units/ML 3 ML Pen SUBCUT SCH ×2 (08:55→22:53)
--- NOTE | 2017-08-22 10:34 | PCM.CONSN ---
- General Info Date of Service: 08/20/17 Admission Dx/Problem (Free Text): Admission Diagnosis/Problem Admission Diagnosis/Problem Osteomyelitis Subjective Update: 36 y/o diabetic male in swing bed for IV antibiotics for osteomyelitis, was inpatient in [place] and followed by ID. Has h/o left BKA with wound and possible underlying osteo. Currently IV antibiotics x 6 weeks. He reports he also had chronic heel wound to right foot, did have surgical debridement in [place] a couple years ago and has had a callus/wound to the surgical area since. Just recently started having some drainage to the heel again. Thinks it has been clear drainage. Denies pain. They have been placing a bandage on the area the last couple of weeks, before that was just leaving open. - Review of Systems General: Reports: No Symptoms - Patient Data Vitals - Most Recent: Last Vital Signs Temp 36.8 C 08/22/17 07:00 Pulse 71 08/22/17 08:54 Resp 20 08/22/17 07:00 BP 159/96 H 08/22/17 08:54 Pulse Ox 99 08/22/17 07:00 Weight - Most Recent: 99.337 kg I&O - Last 24 Hours: Intake & Output 08/21/17 08/22/17 08/22/17 22:59 06:59 14:59 Intake Total 850 52 Balance 850 52 Lab Results Last 24 Hours: Laboratory Results - last 24 hr 08/21/17 08/21/17 08/21/17 Range/Units 11:31 16:58 21:05 WBC (5.0-10.0) 10^3/uL RBC (4.6-6.2) 10^6/uL Hgb (14.0-18.0) g/dL Hct (40.0-54.0) % MCV (80-100) fL MCH (27.0-34.0) pg MCHC (33.0-35.0) g/dL Plt Count (150-450) 10^3/uL Neut % (Auto) (42.2-75.2) % Lymph % (Auto) (20.5-50.1) % Ransom % (Auto) (2-8) % Eos % (Auto) (1.0-3.0) % Baso % (Auto) (0.0-1.0) % ESR (0-15) mm/hr Creatinine (0.6-1.3) mg/dL Est Cr Clr Drug Dosing mL/min Estimated GFR (MDRD) POC Glucose 249 H 98 212 H (70-105) mg/dl ALT (10-60) IU/L C-Reactive Protein (0.0-1.3) mg/dL 08/22/17 08/22/17 08/22/17 Range/Units 06:20 06:20 06:20 WBC 3.4 L (5.0-10.0) 10^3/uL RBC 2.90 L (4.6-6.2) 10^6/uL Hgb 8.5 L (14.0-18.0) g/dL Hct 26.7 L (40.0-54.0) % MCV 92.1 (80-100) fL MCH 29.3 (27.0-34.0) pg MCHC 31.8 L (33.0-35.0) g/dL Plt Count 167 (150-450) 10^3/uL Neut % (Auto) 42.2 (42.2-75.2) % Lymph % (Auto) 41.9 (20.5-50.1) % Ransom % (Auto) 9.1 H (2-8) % Eos % (Auto) 6.5 H (1.0-3.0) % Baso % (Auto) 0.3 (0.0-1.0) % ESR 53 H (0-15) mm/hr Creatinine 3.2 H (0.6-1.3) mg/dL Est Cr Clr Drug Dosing 36.07 mL/min Estimated GFR (MDRD) 22 POC Glucose (70-105) mg/dl ALT 7 L (10-60) IU/L C-Reactive Protein 0.5 (0.0-1.3) mg/dL 08/22/17 Range/Units 07:53 WBC (5.0-10.0) 10^3/uL RBC (4.6-6.2) 10^6/uL Hgb (14.0-18.0) g/dL Hct (40.0-54.0) % MCV (80-100) fL MCH (27.0-34.0) pg MCHC (33.0-35.0) g/dL Plt Count (150-450) 10^3/uL Neut % (Auto) (42.2-75.2) % Lymph % (Auto) (20.5-50.1) % Ransom % (Auto) (2-8) % Eos % (Auto) (1.0-3.0) % Baso % (Auto) (0.0-1.0) % ESR (0-15) mm/hr Creatinine (0.6-1.3) mg/dL Est Cr Clr Drug Dosing mL/min Estimated GFR (MDRD) POC Glucose 98 (70-105) mg/dl ALT (10-60) IU/L C-Reactive Protein (0.0-1.3) mg/dL Med Orders - Current: Current Medications Acetaminophen (Tylenol) 650 mg PO Q4H PRN PRN Reason: Pain (moderate 4-6) Last Admin: 08/16/17 21:34 Dose: 650 mg Aspirin (Halfprin) 81 mg PO DAILY [facility] Last Admin: 08/22/17 08:54 Dose: 81 mg Atorvastatin Calcium (Lipitor) 40 mg PO BEDTIME [facility] Last Admin: 08/21/17 20:44 Dose: 40 mg Benzonatate (Tessalon Perles) 100 mg PO TID PRN PRN Reason: Cough Last Admin: 08/11/17 14:00 Dose: 100 mg Carvedilol (Coreg) 25 mg PO BIDMEALS [facility] Last Admin: 08/22/17 08:54 Dose: 25 mg Dextrose/Water (Dextrose 25% In Water) 10 ml IVPUSH ONETIME PRN PRN Reason: Hypoglycemia Guaifenesin/Phenylephrine HCl (Robitussin Dm) 10 ml PO Q6H PRN PRN Reason: Pain Heparin Sodium (Porcine) (Heparin Sodium) 5,000 units SUBCUT Q12HR [facility] Last Admin: 08/22/17 08:53 Dose: 5,000 units Hydralazine HCl (Apresoline) 100 mg PO Q8HR [facility] Last Admin: 08/22/17 06:25 Dose: 100 mg Cefazolin Sodium/Dextrose 2 gm (/ Premix) 50 mls @ 100 mls/hr IV Q12H [facility] Last Admin: 08/21/17 22:32 Dose: 100 mls/hr Insulin Aspart (Novolog) 0 unit SUBCUT QIDACANDBED [facility]; Protocol Last Admin: 08/22/17 08:51 Dose: Not Given Insulin Detemir (Levemir) 20 unit SUBCUT BID [facility] Last Admin: 08/22/17 08:55 Dose: 20 units Lisinopril (Prinivil) 40 mg PO DAILY [facility] Last Admin: 08/22/17 08:54 Dose: 40 mg Mupirocin (Bactroban Oint) 0 gm TOP BID [facility] Last Admin: 08/22/17 08:54 Dose: 1 applic Oxycodone HCl (Oxycodone) 10 mg PO Q4H PRN PRN Reason: Pain Last Admin: 08/22/17 06:35 Dose: 10 mg Oxycodone/Acetaminophen (Percocet 325-5 Mg) 1 tab PO Q6H PRN PRN Reason: Pain Last Admin: 08/22/17 08:53 Dose: 1 tab Sodium Chloride (Saline Flush) 10 ml FLUSH ASDIRECTED PRN PRN Reason: IV Use Last Admin: 08/21/17 10:04 Dose: 10 ml Spironolactone (Aldactone) 25 mg PO DAILY [facility] Last Admin: 08/22/17 08:54 Dose: 25 mg Torsemide (Demadex) 40 mg PO DAILY [facility] Last Admin: 08/22/17 08:54 Dose: 40 mg Discontinued Medications [facility] Last Admin: 08/11/17 08:13 Dose: 14 units Insulin Aspart (Novolog) 14 unit SUBCUT ONETIME ONE Stop: 08/09/17 18:19 Last Admin: 08/09/17 18:44 Dose: 14 units Insulin Aspart (Novolog) 30 unit SUBCUT ONETIME ONE Stop: 08/09/17 20:08 Last Admin: 08/09/17 20:21 Dose: 30 units Insulin Aspart (Novolog) 20 unit SUBCUT TIDAC [facility] Last Admin: 08/14/17 08:34 Dose: 20 units Insulin Aspart (Novolog) 25 unit SUBCUT TIDAC [facility] Insulin Aspart (Novolog) 15 unit SUBCUT TIDAC [facility] Last Admin: 08/15/17 08:23 Dose: Not Given Insulin Aspart (Novolog) 10 unit SUBCUT TIDAC [facility] Last Admin: 08/18/17 09:04 Dose: Not Given Insulin Detemir (Levemir) 27 unit SUBCUT BID [facility] Last Admin: 08/11/17 08:19 Dose: 27 units Insulin Detemir (Levemir) 32 unit SUBCUT BID [facility] Last Admin: 08/14/17 08:37 Dose: 32 units Insulin Detemir (Levemir) 35 unit SUBCUT BID [facility] Insulin Detemir (Levemir) 25 unit SUBCUT BID [facility] Last Admin: 08/14/17 21:26 Dose: 25 units Oxycodone/Acetaminophen (Percocet 325-5 Mg) 1 tab PO Q8H PRN PRN Reason: Pain Last Admin: 08/09/17 20:18 Dose: 1 tab - Exam General: Alert, Oriented, No Acute Distress Physical Findings Comments:: Right LE: hyperkeratotic tissue present to medial right heel with some clear drainage from the area, superficial ulcer underlying callused tissue that was macerated, it does not probe deep or track, no surrounding erythema or soft tissue crepitus. Callused area measures approx 4 cm x 3 cm with superficial ulcer to central aspect. No SOI present. No pain to foot or extending proximally up ankle/LE. Palpable blood flow to RLE. Light touch sensation not intact to right foot. Consult PN Assessment/Plan Procedures: Procedures C-REACTIVE PROTEIN (02/15/16) COMPLETE CBC W/AUTO DIFF WBC (02/15/16) COMPREHEN METABOLIC PANEL (02/15/16) CULTURE OTHR SPECIMN AEROBIC (02/15/16) EMERGENCY DEPT VISIT (02/15/16) MRI LOWER EXTREMITY W/O DYE (06/29/14) ROUTINE VENIPUNCTURE (02/15/16) THER/PROPH/DIAG IV INF INIT (12/29/16) TX/PROPH/DG ADDL SEQ IV INF (12/29/16) (1) Ulcer of heel SNOMED Code(s): 781086956 Code(s): L97.409 - NON-PRS CHRONIC ULCER OF UNSP HEEL AND MIDFOOT W UNSP SEVERT Current Visit: No Onset Date: 06/06/13 Comment: Right heel Problem List Initiated/Reviewed/Updated: Yes Plan: 36 y/o DM male with heel ulcer present -I did debride the hyperkeratotic tissue to right heel with 15 blade, very superficial ulcer present underlying callus with some clear drainage. I applied melgisorb Ag dressing with gauze and coban. Change dressing every other day. Continue carline yoder. I will recheck on Sunday before he leaves and plan on follow up with him after he is d/samra from swing bed.
[2017-08-22] MEDS: ceFAZolin 2 GM in Premix Bag 1 BAG IV SCH ×2 (10:36→22:47)
[2017-08-22] MEDS: atorvaSTATin 20 MG Tab PO SCH (22:55)
[2017-08-23] MEDS: oxyCODONE 5 MG Tab PO PRN ×4 (05:16→23:35)
[2017-08-23] MEDS: hydrALAZINE 25 MG Tab PO SCH ×3 (05:19→21:30)
[2017-08-23] MEDS: Insulin Aspart 100 Units/ML 3 ML Pen SUBCUT SCH ×4 (10:06→21:20)
[2017-08-23] MEDS: Acetaminophen/oxyCODONE 325-5 MG Tab PO PRN ×3 (10:08→23:36)
[2017-08-23] MEDS: Torsemide 20 MG Tab PO SCH (10:09)
[2017-08-23] MEDS: Lisinopril 10 MG Tab PO SCH (10:09)
[2017-08-23] MEDS: Aspirin 81 MG Tab.EC PO SCH (10:09)
[2017-08-23] MEDS: Carvedilol 25 MG Tab PO SCH ×2 (10:11→17:24)
[2017-08-23] MEDS: Spironolactone 25 MG Tab PO SCH (10:11)
[2017-08-23] MEDS: Mupirocin Oint 22 GM Tube TOP SCH ×3 (10:12→21:13)
[2017-08-23] MEDS: Heparin Sodium 5,000 Units/ML Vial SUBCUT SCH ×2 (10:13→21:13)
[2017-08-23] MEDS: Insulin Detemir 100 Units/ML 3 ML Pen SUBCUT SCH ×2 (10:14→21:16)
[2017-08-23] MEDS: ceFAZolin 2 GM in Premix Bag 1 BAG IV SCH ×2 (10:15→21:21)
[2017-08-23] MEDS: Sodium Chloride 0.9% 10 ML Syringe FLUSH PRN (11:02)
[2017-08-23] MEDS: amLODIPine 5 MG Tab PO SCH (15:08)
[2017-08-23] MEDS: atorvaSTATin 20 MG Tab PO SCH (21:19)
[2017-08-24] MEDS: oxyCODONE 5 MG Tab PO PRN ×4 (03:30→21:13)
[2017-08-24] MEDS: hydrALAZINE 25 MG Tab PO SCH ×3 (05:29→22:11)
[2017-08-24] MEDS: Acetaminophen/oxyCODONE 325-5 MG Tab PO PRN ×3 (05:29→17:52)
[2017-08-24] MEDS: ceFAZolin 2 GM in Premix Bag 1 BAG IV SCH ×2 (09:04→22:12)
[2017-08-24] MEDS: Torsemide 20 MG Tab PO SCH (09:05)
[2017-08-24] MEDS: Lisinopril 10 MG Tab PO SCH (09:05)
[2017-08-24] MEDS: amLODIPine 5 MG Tab PO SCH (09:05)
[2017-08-24] MEDS: Carvedilol 25 MG Tab PO SCH ×2 (09:05→17:48)
[2017-08-24] MEDS: Heparin Sodium 5,000 Units/ML Vial SUBCUT SCH ×2 (09:06→21:17)
[2017-08-24] MEDS: Aspirin 81 MG Tab.EC PO SCH (09:06)
[2017-08-24] MEDS: Spironolactone 25 MG Tab PO SCH (09:06)
[2017-08-24] MEDS: Insulin Detemir 100 Units/ML 3 ML Pen SUBCUT SCH ×2 (09:07→21:16)
[2017-08-24] MEDS: Insulin Aspart 100 Units/ML 3 ML Pen SUBCUT SCH ×4 (09:08→21:16)
[2017-08-24] MEDS: Sodium Chloride 0.9% 10 ML Syringe FLUSH PRN (09:09)
[2017-08-24] MEDS: Mupirocin Oint 22 GM Tube TOP SCH ×2 (09:09→21:15)
[2017-08-24] MEDS: atorvaSTATin 20 MG Tab PO SCH (21:14)
[2017-08-25] MEDS: Acetaminophen/oxyCODONE 325-5 MG Tab PO PRN ×4 (01:00→22:18)
[2017-08-25] MEDS: oxyCODONE 5 MG Tab PO PRN ×3 (04:52→17:58)
[2017-08-25] MEDS: hydrALAZINE 25 MG Tab PO SCH ×3 (06:12→21:54)
[2017-08-25] MEDS: ceFAZolin 2 GM in Premix Bag 1 BAG IV SCH ×2 (09:14→21:55)
[2017-08-25] MEDS: Aspirin 81 MG Tab.EC PO SCH (09:14)
[2017-08-25] MEDS: Metolazone 2.5 MG Tab PO SCH (09:14)
[2017-08-25] MEDS: Bumetanide 1 MG Tab PO SCH ×2 (09:14→15:54)
[2017-08-25] MEDS: amLODIPine 5 MG Tab PO SCH (09:15)
[2017-08-25] MEDS: Carvedilol 25 MG Tab PO SCH ×2 (09:15→17:58)
[2017-08-25] MEDS: Spironolactone 25 MG Tab PO SCH (09:15)
[2017-08-25] MEDS: Heparin Sodium 5,000 Units/ML Vial SUBCUT SCH ×2 (09:15→22:04)
[2017-08-25] MEDS: Insulin Detemir 100 Units/ML 3 ML Pen SUBCUT SCH ×2 (09:16→22:04)
[2017-08-25] MEDS: Insulin Aspart 100 Units/ML 3 ML Pen SUBCUT SCH ×4 (09:17→22:05)
[2017-08-25] MEDS: Sodium Chloride 0.9% 10 ML Syringe FLUSH PRN ×2 (09:20→21:55)
[2017-08-25] MEDS: Mupirocin Oint 22 GM Tube TOP SCH ×2 (09:21→22:08)
[2017-08-25] MEDS: atorvaSTATin 20 MG Tab PO SCH (21:54)
[2017-08-26] MEDS: oxyCODONE 5 MG Tab PO PRN ×3 (04:38→19:17)
[2017-08-26] MEDS: hydrALAZINE 25 MG Tab PO SCH ×3 (05:55→21:33)
[2017-08-26] MEDS: Insulin Aspart 100 Units/ML 3 ML Pen SUBCUT SCH ×4 (08:12→21:31)
[2017-08-26] MEDS: Bumetanide 1 MG Tab PO SCH ×2 (08:19→14:42)
[2017-08-26] MEDS: Carvedilol 25 MG Tab PO SCH ×2 (08:20→17:36)
[2017-08-26] MEDS: Acetaminophen/oxyCODONE 325-5 MG Tab PO PRN ×3 (08:20→22:17)
[2017-08-26] MEDS: Spironolactone 25 MG Tab PO SCH (09:30)
[2017-08-26] MEDS: Insulin Detemir 100 Units/ML 3 ML Pen SUBCUT SCH ×2 (09:31→21:30)
[2017-08-26] MEDS: Aspirin 81 MG Tab.EC PO SCH (09:31)
[2017-08-26] MEDS: Metolazone 2.5 MG Tab PO SCH (09:31)
[2017-08-26] MEDS: amLODIPine 5 MG Tab PO SCH (09:31)
[2017-08-26] MEDS: Heparin Sodium 5,000 Units/ML Vial SUBCUT SCH ×2 (09:32→20:47)
[2017-08-26] MEDS: ceFAZolin 2 GM in Premix Bag 1 BAG IV SCH ×2 (09:34→21:36)
[2017-08-26] MEDS: Mupirocin Oint 22 GM Tube TOP SCH ×2 (09:34→12:27)
[2017-08-26] MEDS: Sodium Chloride 0.9% 10 ML Syringe FLUSH PRN (09:37)
[2017-08-26] MEDS: atorvaSTATin 20 MG Tab PO SCH (20:46)
[2017-08-27] MEDS: oxyCODONE 5 MG Tab PO PRN ×4 (00:53→19:53)
[2017-08-27] MEDS: Acetaminophen/oxyCODONE 325-5 MG Tab PO PRN ×3 (04:36→22:10)
[2017-08-27] MEDS: hydrALAZINE 25 MG Tab PO SCH ×3 (06:11→22:20)
[2017-08-27] MEDS: Insulin Aspart 100 Units/ML 3 ML Pen SUBCUT SCH ×4 (09:00→22:13)
[2017-08-27] MEDS: Bumetanide 1 MG Tab PO SCH ×2 (09:08→15:31)
[2017-08-27] MEDS: Insulin Detemir 100 Units/ML 3 ML Pen SUBCUT SCH ×2 (09:08→22:14)
[2017-08-27] MEDS: Spironolactone 25 MG Tab PO SCH (09:09)
[2017-08-27] MEDS: Carvedilol 25 MG Tab PO SCH ×2 (09:09→18:11)
[2017-08-27] MEDS: Aspirin 81 MG Tab.EC PO SCH (09:09)
[2017-08-27] MEDS: Metolazone 2.5 MG Tab PO SCH (09:10)
[2017-08-27] MEDS: Heparin Sodium 5,000 Units/ML Vial SUBCUT SCH ×2 (09:15→22:12)
[2017-08-27] MEDS: amLODIPine 5 MG Tab PO SCH (12:47)
[2017-08-27] MEDS: ceFAZolin 2 GM in Premix Bag 1 BAG IV SCH ×2 (12:49→22:20)
[2017-08-27] MEDS: Sodium Chloride 0.9% 10 ML Syringe FLUSH PRN (12:49)
--- NOTE | 2017-08-27 16:12 | PCM.PN ---
- General Info Date of Service: 08/27/17 Admission Dx/Problem (Free Text): Admission Diagnosis/Problem Admission Diagnosis/Problem Osteomyelitis Subjective Update: 36 y/o diabetic male in swing bed for IV antibiotics for osteomyelitis, was inpatient in [place] and followed by ID. Has h/o left BKA with wound and possible underlying osteo. Currently IV antibiotics x 6 weeks. Has history of chronic kidney disease stage IV. Recently seen by nephrology, diuretics were rearranged. Blood pressure is better controlled. He needs his pain medication pretty much on the clock. - Review of Systems General: Denies: Fever Pulmonary: Denies: Shortness of Breath Cardiovascular: Denies: Chest Pain Gastrointestinal: Denies: Abdominal Pain Musculoskeletal: Reports: Leg Pain Neurological: Denies: Confusion - Patient Data Vitals - Most Recent: Last Vital Signs Temp 36.6 C 08/27/17 14:49 Pulse 81 08/27/17 14:49 Resp 20 08/27/17 14:49 BP 120/63 08/27/17 15:29 Pulse Ox 100 08/27/17 14:49 Weight - Most Recent: 93.44 kg I&O - Last 24 Hours: Intake & Output 08/27/17 08/27/17 08/27/17 06:59 14:59 22:59 Intake Total 1705 Balance 1705 Lab Results Last 24 Hours: Laboratory Results - last 24 hr 08/26/17 08/26/17 08/27/17 Range/Units 16:35 21:21 06:26 WBC 4.8 L (5.0-10.0) 10^3/uL RBC 3.36 L (4.6-6.2) 10^6/uL Hgb 10.1 L D (14.0-18.0) g/dL Hct 30.5 L (40.0-54.0) % MCV 90.8 (80-100) fL MCH 30.1 (27.0-34.0) pg MCHC 33.1 (33.0-35.0) g/dL Plt Count 186 (150-450) 10^3/uL Neut % (Auto) 61.0 (42.2-75.2) % Lymph % (Auto) 23.4 (20.5-50.1) % Nolan % (Auto) 10.3 H (2-8) % Eos % (Auto) 5.1 H (1.0-3.0) % Baso % (Auto) 0.2 (0.0-1.0) % Sodium (135-145) mmol/L Potassium (3.6-5.0) mmol/L Chloride (101-111) mmol/L Carbon Dioxide (21.0-31.0) mmol/L Anion Gap BUN (7-18) mg/dL Creatinine (0.6-1.3) mg/dL Est Cr Clr Drug Dosing mL/min Estimated GFR (MDRD) Glucose (74-105) mg/dL POC Glucose 115 H 244 H (70-105) mg/dl Calcium (8.4-10.2) mg/dl 08/27/17 08/27/17 08/27/17 Range/Units 06:26 07:59 11:25 WBC (5.0-10.0) 10^3/uL RBC (4.6-6.2) 10^6/uL Hgb (14.0-18.0) g/dL Hct (40.0-54.0) % MCV (80-100) fL MCH (27.0-34.0) pg MCHC (33.0-35.0) g/dL Plt Count (150-450) 10^3/uL Neut % (Auto) (42.2-75.2) % Lymph % (Auto) (20.5-50.1) % Nolan % (Auto) (2-8) % Eos % (Auto) (1.0-3.0) % Baso % (Auto) (0.0-1.0) % Sodium 133 L (135-145) mmol/L Potassium 4.4 (3.6-5.0) mmol/L Chloride 107 (101-111) mmol/L Carbon Dioxide 21.0 (21.0-31.0) mmol/L Anion Gap 9.4 BUN 25 H (7-18) mg/dL Creatinine 3.6 H (0.6-1.3) mg/dL Est Cr Clr Drug Dosing 32.06 mL/min Estimated GFR (MDRD) 19 Glucose 112 H (74-105) mg/dL POC Glucose 120 H 210 H (70-105) mg/dl Calcium 7.8 L (8.4-10.2) mg/dl Med Orders - Current: Current Medications Acetaminophen (Tylenol) 650 mg PO Q4H PRN PRN Reason: Pain (moderate 4-6) Last Admin: 08/16/17 21:34 Dose: 650 mg Amlodipine Besylate (Norvasc) 5 mg PO DAILY [facility] Last Admin: 08/27/17 12:47 Dose: 5 mg Aspirin (Halfprin) 81 mg PO DAILY [facility] Last Admin: 08/27/17 09:09 Dose: 81 mg Atorvastatin Calcium (Lipitor) 40 mg PO BEDTIME [facility] Last Admin: 08/26/17 20:46 Dose: 40 mg Benzonatate (Tessalon Perles) 100 mg PO TID PRN PRN Reason: Cough Last Admin: 08/11/17 14:00 Dose: 100 mg Bumetanide (Bumex) 2 mg PO BIDDIURETIC [facility] Last Admin: 08/27/17 15:31 Dose: 2 mg Carvedilol (Coreg) 25 mg PO BIDMEALS [facility] Last Admin: 08/27/17 09:09 Dose: 25 mg Dextrose/Water (Dextrose 25% In Water) 10 ml IVPUSH ONETIME PRN PRN Reason: Hypoglycemia Guaifenesin/Phenylephrine HCl (Robitussin Dm) 10 ml PO Q6H PRN PRN Reason: Pain Heparin Sodium (Porcine) (Heparin Sodium) 5,000 units SUBCUT Q12HR [facility] Last Admin: 08/27/17 09:15 Dose: 5,000 units Hydralazine HCl (Apresoline) 150 mg PO Q8HR [facility] Last Admin: 08/27/17 15:29 Dose: 150 mg Cefazolin Sodium/Dextrose 2 gm (/ Premix) 50 mls @ 100 mls/hr IV Q12H [facility] Last Admin: 08/27/17 12:49 Dose: 100 mls/hr Insulin Aspart (Novolog) 0 unit SUBCUT QIDACANDBED [facility]; Protocol Last Admin: 08/27/17 12:47 Dose: 6 units Insulin Detemir (Levemir) 20 unit SUBCUT BID [facility] Last Admin: 08/27/17 09:08 Dose: 20 units Metolazone (Zaroxolyn) 2.5 mg PO DAILY [facility] Last Admin: 08/27/17 09:10 Dose: 2.5 mg Oxycodone HCl (Oxycodone) 10 mg PO Q4H PRN PRN Reason: Pain Last Admin: 08/27/17 09:10 Dose: 10 mg Oxycodone/Acetaminophen (Percocet 325-5 Mg) 1 tab PO Q6H PRN PRN Reason: Pain Last Admin: 08/27/17 12:48 Dose: 1 tab Sodium Chloride (Saline Flush) 10 ml FLUSH ASDIRECTED PRN PRN Reason: IV Use Last Admin: 08/27/17 12:49 Dose: 10 ml Spironolactone (Aldactone) 25 mg PO DAILY [facility] Last Admin: 08/27/17 09:09 Dose: 25 mg Discontinued Medications Hydralazine HCl (Apresoline) 100 mg PO Q8HR [facility] Last Admin: 08/24/17 15:58 Dose: 100 mg Insulin Aspart (Novolog) 14 unit SUBCUT TIDAC [facility] Last Admin: 08/11/17 08:13 Dose: 14 units Insulin Aspart (Novolog) 14 unit SUBCUT ONETIME ONE Stop: 08/09/17 18:19 Last Admin: 08/09/17 18:44 Dose: 14 units Insulin Aspart (Novolog) 30 unit SUBCUT ONETIME ONE Stop: 08/09/17 20:08 Last Admin: 08/09/17 20:21 Dose: 30 units Insulin Aspart (Novolog) 20 unit SUBCUT TIDAC [facility] Last Admin: 08/14/17 08:34 Dose: 20 units Insulin Aspart (Novolog) 25 unit SUBCUT TIDAC [facility] Insulin Aspart (Novolog) 15 unit SUBCUT TIDAC [facility] Last Admin: 08/15/17 08:23 Dose: Not Given Insulin Aspart (Novolog) 10 unit SUBCUT TIDAC [facility] Last Admin: 08/18/17 09:04 Dose: Not Given Insulin Detemir (Levemir) 27 unit SUBCUT BID [facility] Last Admin: 08/11/17 08:19 Dose: 27 units Insulin Detemir (Levemir) 32 unit SUBCUT BID [facility] Last Admin: 08/14/17 08:37 Dose: 32 units Insulin Detemir (Levemir) 35 unit SUBCUT BID [facility] Insulin Detemir (Levemir) 25 unit SUBCUT BID [facility] Last Admin: 08/14/17 21:26 Dose: 25 units Lisinopril (Prinivil) 40 mg PO DAILY [facility] Last Admin: 08/24/17 09:05 Dose: 40 mg Mupirocin (Bactroban Oint) 0 gm TOP BID [facility] Last Admin: 08/26/17 12:27 Dose: Not Given Oxycodone/Acetaminophen (Percocet 325-5 Mg) 1 tab PO Q8H PRN PRN Reason: Pain Last Admin: 08/09/17 20:18 Dose: 1 tab Torsemide (Demadex) 40 mg PO DAILY [facility] Last Admin: 08/24/17 09:05 Dose: 40 mg - Exam General: Alert, Oriented Neck: Supple Lungs: Clear to Auscultation, Normal Respiratory Effort Cardiovascular: Regular Rate, Regular Rhythm Extremities: Other (Right lower extremity with Alan wrap, left lower extremity with compression stocking status post below-knee amputation) - Problem List Review Problem List Initiated/Reviewed/Updated: Yes - My Orders Last 24 Hours: My Active Orders 08/29/17 05:00 ALBUMIN [CHEM] Routine IRON PNL (FE, TIBC, LEISA, %SAT) [REF] Routine PHOSPHORUS [CHEM] Routine 08/29/17 05:11 ALANINE AMINOTRANSFERASE,ALT [CHEM] AM ASPARTATE AMNIOTRANSFERASE,AST [CHEM] AM CPK [CREATINE KINASE,CK] [CHEM] AM CRP [C-REACTIVE PROTEIN] [CHEM] AM SEDIMENTATION RATE MANUAL [HEME] AM 08/29/17 05:15 BASIC METABOLIC PANEL,BMP [CHEM] AM CBC WITH AUTO DIFF [HEME] AM - Plan Plan:: Assessment/Plan 36 yo M with PMH of HTN, DM, HLD, hx of DM foot s/p Left BKA, CKA who was admitted at [facility] for influenza B pneumonia with superimposed bacterial infection. He was managed with IV antibiotics. ID was concerned about possible underlying osteomyelitis. MRI was performed showed mild reactive bone marrow edema. ID recommended IV cefazolin for a total of 6 weeks from July 30. He stay was complicated with chest pain and MARINO. He was evaluated by cardiology and cleared for chest pain. His MARINO was also evaluated by nephology. His kidney function did not improved but was stable. Creatinine at discharge was 3.47. He was subsequently discharge to our swing bed to complete the antibiotics. # Chronic right foot ulcer -concerning for Osteomyelitis -ID recommend 6 weeks of IV cefazolin -Conitnue cefazolin -[facility] [employer] Dr. Zaidi is consulted -Continue to follow with ID specialist #Acute kidney injury Nephrology is following Diuretics were rearranged. Treat with Bumex, metolazone Blood pressure is better controlled #Hypertension Treat with Coreg, Bumex, Metolazone, hydralazine #Anemia Could be related to his kidney disease Will watch hemoglobin and do blood transfusion if hemoglobin below 7 #Status post influenza B pneumonia and superimposed bacterial infection Resolved # DVT ppx -Heparin SQ #Diabetes -Diabetic diet, continue insulin regimen #PT/OT are following # Code status Full code
[2017-08-27] MEDS: atorvaSTATin 20 MG Tab PO SCH (22:12)
[2017-08-28] MEDS: oxyCODONE 5 MG Tab PO PRN ×4 (01:11→21:30)
[2017-08-28] MEDS: Acetaminophen/oxyCODONE 325-5 MG Tab PO PRN ×3 (05:07→19:22)
[2017-08-28] MEDS: hydrALAZINE 25 MG Tab PO SCH ×3 (05:13→21:25)
[2017-08-28] MEDS: Insulin Detemir 100 Units/ML 3 ML Pen SUBCUT SCH ×2 (08:44→21:09)
[2017-08-28] MEDS: Insulin Aspart 100 Units/ML 3 ML Pen SUBCUT SCH ×4 (08:45→21:07)
[2017-08-28] MEDS: amLODIPine 5 MG Tab PO SCH (08:46)
[2017-08-28] MEDS: Bumetanide 1 MG Tab PO SCH ×2 (08:46→14:36)
[2017-08-28] MEDS: Carvedilol 25 MG Tab PO SCH ×2 (08:47→17:11)
[2017-08-28] MEDS: Metolazone 2.5 MG Tab PO SCH (08:48)
[2017-08-28] MEDS: Spironolactone 25 MG Tab PO SCH (08:48)
[2017-08-28] MEDS: Aspirin 81 MG Tab.EC PO SCH (08:48)
[2017-08-28] MEDS: Heparin Sodium 5,000 Units/ML Vial SUBCUT SCH ×2 (08:49→21:17)
[2017-08-28] MEDS: ceFAZolin 2 GM in Premix Bag 1 BAG IV SCH ×2 (10:23→21:11)
[2017-08-28] MEDS: Sodium Chloride 0.9% 10 ML Syringe FLUSH PRN (10:24)
[2017-08-28] MEDS: atorvaSTATin 20 MG Tab PO SCH (21:16)
[2017-08-29] MEDS: Acetaminophen/oxyCODONE 325-5 MG Tab PO PRN ×4 (01:51→21:02)
[2017-08-29] MEDS: oxyCODONE 5 MG Tab PO PRN ×5 (01:58→23:54)
[2017-08-29] MEDS: hydrALAZINE 25 MG Tab PO SCH ×3 (05:36→21:37)
[2017-08-29] MEDS: Insulin Detemir 100 Units/ML 3 ML Pen SUBCUT SCH ×2 (09:09→21:09)
[2017-08-29] MEDS: Insulin Aspart 100 Units/ML 3 ML Pen SUBCUT SCH ×4 (09:09→21:05)
[2017-08-29] MEDS: Carvedilol 25 MG Tab PO SCH ×2 (09:10→18:19)
[2017-08-29] MEDS: Heparin Sodium 5,000 Units/ML Vial SUBCUT SCH ×2 (09:10→21:16)
[2017-08-29] MEDS: Metolazone 2.5 MG Tab PO SCH (09:10)
[2017-08-29] MEDS: Bumetanide 1 MG Tab PO SCH ×2 (09:11→15:17)
[2017-08-29] MEDS: amLODIPine 5 MG Tab PO SCH (09:11)
[2017-08-29] MEDS: Spironolactone 25 MG Tab PO SCH (09:12)
[2017-08-29] MEDS: Aspirin 81 MG Tab.EC PO SCH (09:12)
[2017-08-29] MEDS: ceFAZolin 2 GM in Premix Bag 1 BAG IV SCH ×2 (10:23→21:46)
[2017-08-29] MEDS: atorvaSTATin 20 MG Tab PO SCH (21:12)
[2017-08-29] MEDS: Sodium Chloride 0.9% 10 ML Syringe FLUSH PRN ×2 (21:43→22:18)
[2017-08-30] MEDS: hydrALAZINE 25 MG Tab PO SCH ×3 (05:47→21:24)
[2017-08-30] MEDS: Acetaminophen/oxyCODONE 325-5 MG Tab PO PRN ×3 (05:48→19:02)
[2017-08-30] MEDS: Carvedilol 25 MG Tab PO SCH ×2 (09:48→19:02)
[2017-08-30] MEDS: Spironolactone 25 MG Tab PO SCH (09:48)
[2017-08-30] MEDS: Heparin Sodium 5,000 Units/ML Vial SUBCUT SCH ×2 (09:48→21:27)
[2017-08-30] MEDS: Aspirin 81 MG Tab.EC PO SCH (09:48)
[2017-08-30] MEDS: amLODIPine 5 MG Tab PO SCH (09:48)
[2017-08-30] MEDS: Bumetanide 1 MG Tab PO SCH ×2 (09:48→15:12)
[2017-08-30] MEDS: Insulin Detemir 100 Units/ML 3 ML Pen SUBCUT SCH ×2 (09:49→21:49)
[2017-08-30] MEDS: oxyCODONE 5 MG Tab PO PRN ×3 (09:49→22:01)
[2017-08-30] MEDS: Metolazone 2.5 MG Tab PO SCH (09:49)
[2017-08-30] MEDS: Sodium Chloride 0.9% 10 ML Syringe FLUSH PRN ×2 (09:50→21:53)
[2017-08-30] MEDS: ceFAZolin 2 GM in Premix Bag 1 BAG IV SCH ×2 (09:50→21:54)
[2017-08-30] MEDS: Insulin Aspart 100 Units/ML 3 ML Pen SUBCUT SCH ×4 (09:50→21:52)
[2017-08-30] MEDS: atorvaSTATin 20 MG Tab PO SCH (21:23)
[2017-08-31] MEDS: Acetaminophen/oxyCODONE 325-5 MG Tab PO PRN ×4 (01:30→22:03)
[2017-08-31] MEDS: oxyCODONE 5 MG Tab PO PRN ×3 (06:05→19:46)
[2017-08-31] MEDS: hydrALAZINE 25 MG Tab PO SCH ×3 (06:05→22:05)
[2017-08-31] MEDS: Insulin Aspart 100 Units/ML 3 ML Pen SUBCUT SCH ×4 (07:47→21:02)
[2017-08-31] MEDS: Carvedilol 25 MG Tab PO SCH ×2 (08:24→17:37)
[2017-08-31] MEDS: Metolazone 2.5 MG Tab PO SCH (08:24)
[2017-08-31] MEDS: Bumetanide 1 MG Tab PO SCH (08:24)
[2017-08-31] MEDS: amLODIPine 5 MG Tab PO SCH (08:24)
[2017-08-31] MEDS: Spironolactone 25 MG Tab PO SCH (08:24)
[2017-08-31] MEDS: Aspirin 81 MG Tab.EC PO SCH (08:25)
[2017-08-31] MEDS: Heparin Sodium 5,000 Units/ML Vial SUBCUT SCH ×2 (08:25→20:53)
[2017-08-31] MEDS: Insulin Detemir 100 Units/ML 3 ML Pen SUBCUT SCH ×2 (08:29→21:00)
[2017-08-31] MEDS ORDERED: DAPTOmycin 500 MG Vial IV SCH (10:45)
[2017-08-31] MEDS: ceFAZolin 2 GM in Premix Bag 1 BAG IV SCH (12:34)
[2017-08-31] MEDS: Sodium Chloride 0.9% 10 ML Syringe FLUSH PRN (15:38)
[2017-08-31] MEDS: DAPTOmycin 500 MG in Sodium Chloride 0.9% 100 ML IV SCH (15:38)
[2017-09-01] MEDS: oxyCODONE 5 MG Tab PO PRN ×4 (03:18→21:37)
[2017-09-01] MEDS: hydrALAZINE 25 MG Tab PO SCH ×3 (06:05→21:27)
[2017-09-01] MEDS: Acetaminophen/oxyCODONE 325-5 MG Tab PO PRN ×3 (06:06→19:04)
[2017-09-01] MEDS: Aspirin 81 MG Tab.EC PO SCH (08:24)
[2017-09-01] MEDS: Carvedilol 25 MG Tab PO SCH ×2 (08:24→17:26)
[2017-09-01] MEDS: Heparin Sodium 5,000 Units/ML Vial SUBCUT SCH ×2 (08:25→21:26)
[2017-09-01] MEDS: Bumetanide 1 MG Tab PO SCH (08:25)
[2017-09-01] MEDS: Metolazone 2.5 MG Tab PO SCH (08:25)
[2017-09-01] MEDS: amLODIPine 5 MG Tab PO SCH (08:25)
[2017-09-01] MEDS: Spironolactone 25 MG Tab PO SCH (08:25)
[2017-09-01] MEDS: Insulin Aspart 100 Units/ML 3 ML Pen SUBCUT SCH ×4 (08:26→21:20)
[2017-09-01] MEDS: Insulin Detemir 100 Units/ML 3 ML Pen SUBCUT SCH ×2 (08:27→21:26)
[2017-09-01] MEDS: Isopropyl Myristate/Mineral Oil/Water Lotion 240 ML Bottle TOP SCH (11:57)
[2017-09-01] MEDS ORDERED: Insulin Aspart 100 Units/ML 3 ML Pen SUBCUT ONE (21:20)
[2017-09-02] MEDS: Acetaminophen/oxyCODONE 325-5 MG Tab PO PRN ×4 (01:31→22:47)
[2017-09-02] MEDS: oxyCODONE 5 MG Tab PO PRN ×3 (05:24→19:35)
[2017-09-02] MEDS: hydrALAZINE 25 MG Tab PO SCH ×3 (05:26→21:58)
[2017-09-02] MEDS: Insulin Aspart 100 Units/ML 3 ML Pen SUBCUT SCH ×4 (08:58→21:38)
[2017-09-02] MEDS: Insulin Detemir 100 Units/ML 3 ML Pen SUBCUT SCH ×2 (09:00→21:38)
[2017-09-02] MEDS: Carvedilol 25 MG Tab PO SCH ×2 (09:02→17:31)
[2017-09-02] MEDS: Spironolactone 25 MG Tab PO SCH (09:03)
[2017-09-02] MEDS: Bumetanide 1 MG Tab PO SCH (09:03)
[2017-09-02] MEDS: Heparin Sodium 5,000 Units/ML Vial SUBCUT SCH ×2 (09:04→20:55)
[2017-09-02] MEDS: amLODIPine 5 MG Tab PO SCH (09:04)
[2017-09-02] MEDS: Aspirin 81 MG Tab.EC PO SCH (09:04)
[2017-09-02] MEDS: Metolazone 2.5 MG Tab PO SCH (09:05)
[2017-09-02] MEDS: Isopropyl Myristate/Mineral Oil/Water Lotion 240 ML Bottle TOP SCH (11:17)
[2017-09-02] MEDS: DAPTOmycin 500 MG in Sodium Chloride 0.9% 100 ML IV SCH ×2 (17:25→21:05)
[2017-09-02] MEDS: Sodium Chloride 0.9% 10 ML Syringe FLUSH PRN (17:28)
[2017-09-02] MEDS ORDERED: Alteplase 2 MG Vial IVPUSH ONE (18:16)
[2017-09-03] MEDS: oxyCODONE 5 MG Tab PO PRN ×4 (01:30→21:10)
[2017-09-03] MEDS: Acetaminophen/oxyCODONE 325-5 MG Tab PO PRN ×3 (05:32→18:30)
[2017-09-03] MEDS: hydrALAZINE 25 MG Tab PO SCH ×3 (05:34→21:34)
[2017-09-03] MEDS: Insulin Aspart 100 Units/ML 3 ML Pen SUBCUT SCH ×4 (08:22→21:27)
[2017-09-03] MEDS: Carvedilol 25 MG Tab PO SCH ×2 (08:36→17:48)
[2017-09-03] MEDS: Aspirin 81 MG Tab.EC PO SCH (08:39)
[2017-09-03] MEDS: amLODIPine 5 MG Tab PO SCH (08:39)
[2017-09-03] MEDS: Bumetanide 1 MG Tab PO SCH (08:39)
[2017-09-03] MEDS: Spironolactone 25 MG Tab PO SCH (08:40)
[2017-09-03] MEDS: Insulin Detemir 100 Units/ML 3 ML Pen SUBCUT SCH ×2 (08:40→21:25)
[2017-09-03] MEDS: Heparin Sodium 5,000 Units/ML Vial SUBCUT SCH ×2 (08:40→21:23)
[2017-09-03] MEDS: Metolazone 2.5 MG Tab PO SCH (08:40)
--- NOTE | 2017-09-03 13:01 | PN ---
DATE: 09/03/2017 SUBJECTIVE: Mr. Jaxon Robles is a 36-year-old male with medical history significant for hypertension, hyperlipidemia, type 2 diabetes mellitus, diabetes complicated with foot ulcer, resulting in left BKA, chronic kidney disease, was admitted to the swing bed for continued IV antibiotics. He was initially at [facility] in acute care setting for influenza B and pneumonia and was noted to have osteomyelitis requiring prolonged IV antibiotic regimen. He is currently on cefazolin to complete 6 weeks of IV antibiotic regimen. For the last 24 hours, the patient denies any chest pain. No shortness of breath. No abdominal pain. No nausea. No vomiting. No diarrhea. PHYSICAL EXAMINATION: Vital Signs: Temperature of 98.9, pulse of 77, blood pressure 127/71, respiratory rate of 17, saturating at 98%. General Appearance: The patient is well oriented to time, place, and person. Follows commands spontaneously. Cardiovascular System: S1, S2 heard with normal intensity. No murmurs, no gallops. Respiratory System: Clear to auscultation bilaterally. No wheeze. No crepitations. Abdomen: Soft. Bowel sounds positive. Nontender. No rigidity. Extremities: Left BKA. Right lower extremity with dressing, chronic foot ulcer. Neurology: No gross focal neurological deficit. MEDICATIONS: Reviewed. Continue with, 1. Tylenol 650 every 4 hours as needed for pain. 2. Norvasc 5 mg daily. 3. Aspirin 81 mg daily. 4. Tessalon Perles 100 mg 3 times a day. 5. Bumex 2 mg daily. 6. Coreg 25 mg twice a day. 7. Daptomycin q.48 hours. 8. Robitussin 10 mL every 6 hours as needed. 9. Heparin 5000 subcutaneously q.12 hourly. 10.Hydralazine 150 mg q.8 hourly. 11.NovoLog supplemental scale. 12.Levemir 20 units b.i.d. 13.Metolazone 2.5 mg daily. 14.Oxycodone one tablet q.6 hours as needed. 15.Spironolactone 25 mg daily. LABORATORY DATA: Blood sugars in the range of 167 to 374. Labs ordered for 09/05. ASSESSMENT: 1. Osteomyelitis, requiring prolonged IV antibiotic regimen with daptomycin. 2. Type 2 diabetes mellitus. 3. Hypertension. 4. Hyperlipidemia. 5. Chronic kidney disease. PLAN: 1. Osteomyelitis. The patient is diagnosed with osteomyelitis involving the right foot, is currently on IV antibiotic daptomycin. The patient has been followed by ID or telemedicine, ordered for labs including ESR, CRP, CBC, and BMP for 09/05, we will closely follow. Continue with current antibiotic regimen. 2. Type 2 diabetes mellitus. The patient is currently on insulin regimen, continue the same. Check his fingersticks with each meals, have him on supplemental scale insulin as needed. 3. Hypertension. The patient blood pressure is well controlled. Continue with current antihypertensive medication. 4. DVT prophylaxis. Continue with heparin for DVT prophylaxis. 5. Continue with physical therapy and occupational therapy. [facility] /[id number]
[2017-09-03] MEDS: Isopropyl Myristate/Mineral Oil/Water Lotion 240 ML Bottle TOP SCH (13:12)
[2017-09-03] MEDS: Sodium Chloride 0.9% 10 ML Syringe FLUSH PRN (21:39)
[2017-09-04] MEDS: Acetaminophen/oxyCODONE 325-5 MG Tab PO PRN ×4 (00:36→20:38)
[2017-09-04] MEDS: hydrALAZINE 25 MG Tab PO SCH ×3 (05:52→21:42)
[2017-09-04] MEDS: oxyCODONE 5 MG Tab PO PRN ×4 (05:53→23:16)
[2017-09-04] MEDS: Insulin Detemir 100 Units/ML 3 ML Pen SUBCUT SCH ×2 (08:08→21:43)
[2017-09-04] MEDS: Insulin Aspart 100 Units/ML 3 ML Pen SUBCUT SCH ×4 (08:09→21:46)
[2017-09-04] MEDS: Bumetanide 1 MG Tab PO SCH (08:10)
[2017-09-04] MEDS: Heparin Sodium 5,000 Units/ML Vial SUBCUT SCH ×2 (08:10→21:45)
[2017-09-04] MEDS: Carvedilol 25 MG Tab PO SCH ×2 (08:10→17:18)
[2017-09-04] MEDS: Metolazone 2.5 MG Tab PO SCH (08:10)
[2017-09-04] MEDS: amLODIPine 5 MG Tab PO SCH (08:10)
[2017-09-04] MEDS: Spironolactone 25 MG Tab PO SCH (08:10)
[2017-09-04] MEDS: Aspirin 81 MG Tab.EC PO SCH (08:10)
[2017-09-04] MEDS: Isopropyl Myristate/Mineral Oil/Water Lotion 240 ML Bottle TOP SCH (08:11)
[2017-09-04] MEDS: DAPTOmycin 500 MG in Sodium Chloride 0.9% 100 ML IV SCH (14:35)
[2017-09-04] MEDS: Sodium Chloride 0.9% 10 ML Syringe FLUSH SCH (21:47)
[2017-09-05] MEDS: Acetaminophen/oxyCODONE 325-5 MG Tab PO PRN ×4 (03:15→23:41)
[2017-09-05] MEDS: hydrALAZINE 25 MG Tab PO SCH ×3 (06:06→21:27)
[2017-09-05] MEDS: Insulin Aspart 100 Units/ML 3 ML Pen SUBCUT SCH ×4 (08:09→21:31)
[2017-09-05] MEDS: oxyCODONE 5 MG Tab PO PRN ×3 (08:27→19:59)
[2017-09-05] MEDS: Bumetanide 1 MG Tab PO SCH (08:27)
[2017-09-05] MEDS: amLODIPine 5 MG Tab PO SCH (08:28)
[2017-09-05] MEDS: Spironolactone 25 MG Tab PO SCH (08:28)
[2017-09-05] MEDS: Carvedilol 25 MG Tab PO SCH ×2 (08:28→17:27)
[2017-09-05] MEDS: Isopropyl Myristate/Mineral Oil/Water Lotion 240 ML Bottle TOP SCH (08:29)
[2017-09-05] MEDS: Metolazone 2.5 MG Tab PO SCH (08:29)
[2017-09-05] MEDS: Insulin Detemir 100 Units/ML 3 ML Pen SUBCUT SCH ×2 (08:29→21:32)
[2017-09-05] MEDS: Sodium Chloride 0.9% 10 ML Syringe FLUSH SCH ×2 (08:29→21:34)
[2017-09-05] MEDS: Heparin Sodium 5,000 Units/ML Vial SUBCUT SCH ×2 (08:29→21:29)
[2017-09-05] MEDS: Aspirin 81 MG Tab.EC PO SCH (08:29)
[2017-09-06] MEDS: oxyCODONE 5 MG Tab PO PRN ×4 (03:12→23:50)
[2017-09-06] MEDS: hydrALAZINE 25 MG Tab PO SCH ×3 (06:04→22:16)
[2017-09-06] MEDS: Insulin Aspart 100 Units/ML 3 ML Pen SUBCUT SCH ×4 (08:23→22:10)
[2017-09-06] MEDS: Sodium Chloride 0.9% 10 ML Syringe FLUSH SCH ×2 (08:24→22:12)
[2017-09-06] MEDS: Insulin Detemir 100 Units/ML 3 ML Pen SUBCUT SCH ×2 (08:24→22:08)
[2017-09-06] MEDS: Heparin Sodium 5,000 Units/ML Vial SUBCUT SCH ×2 (08:25→22:06)
[2017-09-06] MEDS: Acetaminophen/oxyCODONE 325-5 MG Tab PO PRN ×3 (08:25→20:59)
[2017-09-06] MEDS: Aspirin 81 MG Tab.EC PO SCH (08:25)
[2017-09-06] MEDS: Spironolactone 25 MG Tab PO SCH (08:25)
[2017-09-06] MEDS: Metolazone 2.5 MG Tab PO SCH (08:26)
[2017-09-06] MEDS: Isopropyl Myristate/Mineral Oil/Water Lotion 240 ML Bottle TOP SCH (08:26)
[2017-09-06] MEDS: Bumetanide 1 MG Tab PO SCH (08:26)
[2017-09-06] MEDS: amLODIPine 5 MG Tab PO SCH (08:26)
[2017-09-06] MEDS: Carvedilol 25 MG Tab PO SCH ×2 (08:26→17:09)
[2017-09-06] MEDS: Gabapentin 100 MG Cap PO SCH ×2 (12:42→22:13)
[2017-09-06] MEDS: DAPTOmycin 500 MG in Sodium Chloride 0.9% 100 ML IV SCH (16:23)
[2017-09-07] MEDS: oxyCODONE 5 MG Tab PO PRN ×3 (00:03→12:04)
[2017-09-07] MEDS: hydrALAZINE 25 MG Tab PO SCH ×2 (05:46→14:56)
[2017-09-07] MEDS: Acetaminophen/oxyCODONE 325-5 MG Tab PO PRN ×2 (06:26→14:57)
[2017-09-07] MEDS: Insulin Detemir 100 Units/ML 3 ML Pen SUBCUT SCH ×2 (06:46→08:26)
[2017-09-07] MEDS: Insulin Aspart 100 Units/ML 3 ML Pen SUBCUT SCH ×2 (06:47→12:01)
[2017-09-07] MEDS: Gabapentin 100 MG Cap PO SCH ×2 (06:48→08:25)
[2017-09-07] MEDS: Aspirin 81 MG Tab.EC PO SCH ×2 (06:49→08:26)
[2017-09-07] MEDS: Carvedilol 25 MG Tab PO SCH ×2 (06:50→08:27)
[2017-09-07] MEDS: Spironolactone 25 MG Tab PO SCH ×2 (06:50→08:27)
[2017-09-07] MEDS: amLODIPine 5 MG Tab PO SCH ×2 (06:51→08:24)
[2017-09-07] MEDS ORDERED: Bumetanide 1 MG Tab PO SCH (08:00)
[2017-09-07 08:01] VITALS: BP 135/88
[2017-09-07] MEDS: Isopropyl Myristate/Mineral Oil/Water Lotion 240 ML Bottle TOP SCH (08:26)
[2017-09-07] MEDS: Heparin Sodium 5,000 Units/ML Vial SUBCUT SCH (08:26)
[2017-09-07] MEDS: Sodium Chloride 0.9% 10 ML Syringe FLUSH SCH (08:27)
--- NOTE | 2017-09-07 13:40 | PCM.DCSUM1 ---
Discharge Summary - Hospital Course Free Text/Narrative:: 36 yo M with PMH of HTN, DM, HLD, hx of DM foot s/p Left BKA, CKA who was admitted at [facility] for influenza B pneumonia with superimposed bacterial infection. He was managed with IV antibiotics. ID was concerned about possible underlying osteomyelitis. MRI was performed showed mild reactive bone marrow edema. ID recommended IV cefazolin for a total of 6 weeks from July 30. He stay was complicated with chest pain and MARINO. He was evaluated by cardiology and cleared for chest pain. His MARINO was also evaluated by nephology. His kidney function did not improved but was stable. Creatinine at discharge was 3.47. He was subsequently discharge to our swing bed to complete the antibiotics. # Chronic right foot ulcer -concerning for Osteomyelitis -ID recommend 6 weeks of IV cefazolin - he finished this -Continue to follow with ID specialist as outpatient #Acute kidney injury Nephrology has been following Diuretics were rearranged. Will follow up with Dr. Lion #Hypertension Treat with Coreg, diuretics hydralazine #Diabetes -Diabetic diet, continue insulin regimen #Chronic lower extremity pain Try to minimize narcotics For now will give Percocet prescription for short-term use - Discharge Data Discharge Date: 09/07/17 Discharge Disposition: Home, Self-Care 01 Condition: Good - Patient Instructions Diet: Heart Healthy Diet, Usual Diet as Tolerated Activity: As Tolerated - Discharge Plan Prescriptions/Med Rec: hydrALAZINE [Apresoline] 150 mg PO Q8HR #90 tablet Acetaminophen/oxyCODONE [Percocet 325-5 MG] 1 tab PO Q6H PRN #22 tablet PRN Reason: Pain Bumetanide [Bumex] 2 mg PO Q48H #30 tablet Home Medications: Home Meds oxyCODONE HCl/Acetaminophen [Percocet 10-325 mg Tablet] 1 each PO Q8HR PRN 02/02 [History] Acetaminophen [Tylenol] 650 mg PO Q4H PRN #20 tablet 02/10/17 [Rx] Aspirin [Halfprin] 81 mg PO DAILY 08/09/17 [History] Carvedilol 25 mg PO BID 08/09/17 [History] Insulin Aspart [NovoLOG] 14 unit SUBCUT TIDAC 08/09/17 [History] Spironolactone [Aldactone] 25 mg PO DAILY 08/09/17 [History] atorvaSTATin [Lipitor] 40 mg PO BEDTIME 08/09/17 [History] Acetaminophen/oxyCODONE [Percocet 325-5 MG] 1 tab PO Q6H PRN #22 tablet [Rx] Bumetanide [Bumex] 2 mg PO Q48H #30 tablet 09/07/17 [Rx] hydrALAZINE [Apresoline] 150 mg PO Q8HR #90 tablet 09/07/17 [Rx] Patient Handouts: PICC Removal, Care After - General Info Date of Service: 09/07/17 - Review of Systems General: Denies: Fever, Weakness Pulmonary: Denies: Shortness of Breath Cardiovascular: Denies: Chest Pain Gastrointestinal: Denies: Abdominal Pain Psychiatric: Denies: Confusion - Patient Data Vitals - Most Recent: Last Vital Signs Temp 36.6 C 09/07/17 05:30 Pulse 80 09/07/17 06:50 Resp 18 09/07/17 05:30 BP 135/88 09/07/17 06:51 Pulse Ox 98 09/07/17 05:30 Weight - Most Recent: 89.176 kg I&O - Last 24 hours: Intake & Output 09/06/17 09/07/17 09/07/17 22:59 06:59 14:59 Intake Total 780 440 Balance 780 440 Lab Results - Last 24 hrs: Laboratory Results - last 24 hr 09/06/17 09/06/17 09/07/17 Range/Units 17:04 20:56 06:29 POC Glucose 264 H 165 H 370 H (70-105) mg/dl 09/07/17 Range/Units 11:59 POC Glucose 112 H (70-105) mg/dl Med Orders - Current: Current Medications Acetaminophen (Tylenol) 650 mg PO Q4H PRN PRN Reason: Pain (moderate 4-6) Last Admin: 08/16/17 21:34 Dose: 650 mg Amlodipine Besylate (Norvasc) 5 mg PO DAILY [facility] Last Admin: 09/07/17 08:24 Dose: Not Given Aspirin (Halfprin) 81 mg PO DAILY [facility] Last Admin: 09/07/17 08:26 Dose: Not Given Benzonatate (Tessalon Perles) 100 mg PO TID PRN PRN Reason: Cough Last Admin: 08/11/17 14:00 Dose: 100 mg Bumetanide (Bumex) 2 mg PO Q48H [facility] Last Admin: 09/07/17 12:04 Dose: 2 mg Carvedilol (Coreg) 25 mg PO BIDMEALS [facility] Last Admin: 09/07/17 08:27 Dose: Not Given Dextrose/Water (Dextrose 25% In Water) 10 ml IVPUSH ONETIME PRN PRN Reason: Hypoglycemia Emollient Ointment (Hydrocerin Lotion) 2 ml TOP DAILY [facility] Last Admin: 09/07/17 08:26 Dose: Not Given Gabapentin (Neurontin) 100 mg PO BID [facility] Last Admin: 09/07/17 08:25 Dose: Not Given Guaifenesin/Phenylephrine HCl (Robitussin Dm) 10 ml PO Q6H PRN PRN Reason: Pain Heparin Sodium (Porcine) (Heparin Sodium) 5,000 units SUBCUT Q12HR [facility] Last Admin: 09/07/17 08:26 Dose: Not Given Hydralazine HCl (Apresoline) 150 mg PO Q8HR [facility] Last Admin: 09/07/17 05:46 Dose: 150 mg Insulin Aspart (Novolog) 0 unit SUBCUT QIDACANDBED [facility]; Protocol Last Admin: 09/07/17 12:01 Dose: Not Given Insulin Detemir (Levemir) 20 unit SUBCUT BID [facility] Last Admin: 09/07/17 08:26 Dose: Not Given Oxycodone HCl (Oxycodone) 10 mg PO Q4H PRN PRN Reason: Pain Last Admin: 09/07/17 12:04 Dose: 10 mg Oxycodone/Acetaminophen (Percocet 325-5 Mg) 1 tab PO Q6H PRN PRN Reason: Pain Last Admin: 09/07/17 06:26 Dose: 1 tab Patient Own Medication (Ptom) 0 each PO TID [facility] Sodium Chloride (Saline Flush) 10 ml FLUSH BID [facility] Last Admin: 09/07/17 08:27 Dose: Not Given Spironolactone (Aldactone) 25 mg PO DAILY [facility] Last Admin: 09/07/17 08:27 Dose: Not Given Discontinued Medications Alteplase, Recombinant (Cathflo Activase) 2 mg IVPUSH ONETIME ONE Stop: 09/02/17 18:17 Last Admin: 09/02/17 20:21 Dose: 2 mg Atorvastatin Calcium (Lipitor) 40 mg PO BEDTIME [facility] Last Admin: 08/30/17 21:23 Dose: 40 mg Bumetanide (Bumex) 2 mg PO BIDDIURETIC [facility] Last Admin: 08/30/17 15:12 Dose: 2 mg Bumetanide (Bumex) 2 mg PO DAILY [facility] Last Admin: 09/06/17 08:26 Dose: 2 mg Daptomycin (Cubicin) 540 mg 6 mg/kg (540 mg) IV Q24H [facility] Last Admin: 08/31/17 13:55 Dose: Not Given Hydralazine HCl (Apresoline) 100 mg PO Q8HR [facility] Last Admin: 08/24/17 15:58 Dose: 100 mg Cefazolin Sodium/Dextrose 2 gm (/ Premix) 50 mls @ 100 mls/hr IV Q12H [facility] Last Admin: 08/31/17 12:34 Dose: Not Given Daptomycin 500 mg/ Sodium (Chloride) 100 mls @ 200 mls/hr IV Q48H [facility] Last Admin: 09/06/17 16:23 Dose: 200 mls/hr [facility]ulin [facility]) [facility] Last Admin: 08/11/17 08:13 Dose: 14 units Insulin Aspart (Novolog) 14 unit SUBCUT ONETIME ONE Stop: 08/09/17 18:19 Last Admin: 08/09/17 18:44 Dose: 14 units Insulin Aspart (Novolog) 30 unit SUBCUT ONETIME ONE Stop: 08/09/17 20:08 Last Admin: 08/09/17 20:21 Dose: 30 units [facility]ulin [facility] ([facility]) [facility] Last Admin: 08/14/17 08:34 Dose: 20 units Insulin Aspart (Novolog) 25 unit SUBCUT TIDAC [facility] Insulin Aspart (Novolog) 15 unit SUBCUT TIDAC [facility] Last Admin: 08/15/17 08:23 Dose: Not Given Insulin Aspart (Novolog) 10 unit SUBCUT TIDAC [facility] Last Admin: 08/18/17 09:04 Dose: Not Given Insulin Aspart (Novolog) 15 unit SUBCUT ONETIME ONE Stop: 09/01/17 21:21 Last Admin: 09/01/17 21:40 Dose: 15 units Insulin Detemir (Levemir) 27 unit SUBCUT BID [facility] Last Admin: 08/11/17 08:19 Dose: 27 units Insulin Detemir (Levemir) 32 unit SUBCUT BID [facility] Last Admin: 08/14/17 08:37 Dose: 32 units Insulin Detemir (Levemir) 35 unit SUBCUT BID [facility] Insulin Detemir (Levemir) 25 unit SUBCUT BID [facility] Last Admin: 08/14/17 21:26 Dose: 25 units Lisinopril (Prinivil) 40 mg PO DAILY [facility] Last Admin: 08/24/17 09:05 Dose: 40 mg Metolazone (Zaroxolyn) 2.5 mg PO DAILY [facility] Last Admin: 09/06/17 08:26 Dose: 2.5 mg Mupirocin (Bactroban Oint) 0 gm TOP BID [facility] Last Admin: 08/26/17 12:27 Dose: Not Given Oxycodone/Acetaminophen (Percocet 325-5 Mg) 1 tab PO Q8H PRN PRN Reason: Pain Last Admin: 08/09/17 20:18 Dose: 1 tab Sodium Chloride (Saline Flush) 10 ml FLUSH ASDIRECTED PRN PRN Reason: IV Use Last Admin: 09/03/17 21:39 Dose: 10 ml Torsemide (Demadex) 40 mg PO DAILY [facility] Last Admin: 08/24/17 09:05 Dose: 40 mg - Exam General: Reports: Alert, Oriented Neck: Reports: Supple Lungs: Reports: Clear to Auscultation, Normal Respiratory Effort Cardiovascular: Reports: Regular Rate, Regular Rhythm Extremities: Other (Status post amputation on left side, 1+ edema r. side) Psy/Mental Status: Reports: Alert, Normal Affect, Normal Mood
[2017-09-07] MEDS ORDERED: Patient's Own Medication 1 Each PO SCH (21:00)
== END 2017-09-07 17:17 | disposition home or self-care (01) | DRG 637 ==
LOC: UNDOADMIN 12:57 → DL.MS 12:57
PROVIDERS: ADMIT Student in an Organized Health Care Education/Training Program; ATTEND Student in an Organized Health Care Education/Training Program
PROC: 0JDQ3ZZ Extraction of Right Foot Subcutaneous Tissue and Fascia, Percutaneous Approach (ICD-10-PCS; principal; 2017-08-22)
DX: E11.69 Type 2 diabetes mellitus with other specified complication (principal); J10.00 Influenza due to other identified influenza virus with unspecified type of pneumonia; M86.9 Osteomyelitis, unspecified; L03.116 Cellulitis of left lower limb; L97.419 Non-pressure chronic ulcer of right heel and midfoot with unspecified severity; E11.22 Type 2 diabetes mellitus with diabetic chronic kidney disease; E11.621 Type 2 diabetes mellitus with foot ulcer; I12.9 Hypertensive chronic kidney disease with stage 1 through stage 4 chronic kidney disease, or unspecified chronic kidney disease; N18.4 Chronic kidney disease, stage 4 (severe); D63.1 Anemia in chronic kidney disease; N17.9 Acute kidney failure, unspecified; E78.5 Hyperlipidemia, unspecified; J32.9 Chronic sinusitis, unspecified; H93.19 Tinnitus, unspecified ear; R56.9 Unspecified convulsions; F17.200 Nicotine dependence, unspecified, uncomplicated; Z86.14 Personal history of Methicillin resistant Staphylococcus aureus infection; Z90.49 Acquired absence of other specified parts of digestive tract; Z89.512 Acquired absence of left leg below knee; Z79.82 Long term (current) use of aspirin; Z79.4 Long term (current) use of insulin; Z79.899 Other long term (current) drug therapy; Z91.11 Patient's noncompliance with dietary regimen
CPT/HCPCS: 36415; 80048; 80069; 82040; 82043; 82550; 82565; 82570; 82728; 82962; 83540; 83550; 84100; 84156; 84450; 84460; 85025; 85610; 85651; 86140; 93971; A9270-GY; J0690; J0878; J1644; J1815-GY; J2997; J7050

== ENCOUNTER 2018-05-23 12:14 | Emergency (ER) | payer MEDICAID | END 2018-05-23 12:38 | disposition left against medical advice (07) | LOC: DL.ED 12:14 | DX: Z53.21 Procedure and treatment not carried out due to patient leaving prior to being seen by health care provider (principal) ==

== ENCOUNTER 2018-07-16 10:13 | Emergency (ER) | payer MEDICAID ==
--- NOTE | 2018-07-16 10:04 | EDM.PDOC ---
<Hyacinth Goodson - Last Filed: 07/17/18 01:46> ED HPI GENERAL MEDICAL PROBLEM - General Stated Complaint: AMBULANCE Time Seen by Provider: 07/16/18 10:04 - Related Data Allergies Allergy/AdvReac Type Severity Reaction Status Date / Time No Known Allergies Allergy Verified 05/06/18 08:02 Home Meds: Home Meds Acetaminophen [Tylenol] 650 mg PO Q4H PRN #20 tablet 02/10/17 [Rx] Aspirin [Halfprin] 81 mg PO DAILY 08/09/17 [History] Carvedilol 25 mg PO BID 08/09/17 [History] Insulin Aspart [NovoLOG] 14 unit SUBCUT TIDAC 08/09/17 [History] Spironolactone [Aldactone] 25 mg PO DAILY 08/09/17 [History] atorvaSTATin [Lipitor] 40 mg PO BEDTIME 08/09/17 [History] Acetaminophen/oxyCODONE [Percocet 325-5 MG] 1 tab PO Q6H PRN #22 tablet [Rx] Bumetanide [Bumex] 2 mg PO Q48H #30 tablet 09/07/17 [Rx] Calcium Acetate [PhosLo] 667 mg PO TID #90 cap 09/07/17 [Rx] Insulin Detemir [Levemir] 20 unit SUBCUT BID pen 09/07/17 [Rx] amLODIPine Besylate [Amlodipine Besylate] 5 mg PO DAILY #30 tablet 09/07/17 [Rx] hydrALAZINE [Apresoline] 150 mg PO Q8HR #90 tablet 09/07/17 [Rx] Course - Vital Signs Last Recorded V/S: Last Vital Signs Temp 100.4 F 07/16/18 10:09 Pulse 114 H 07/16/18 10:09 Resp 22 H 07/16/18 10:09 BP 160/75 H 07/16/18 10:09 Pulse Ox 99 07/16/18 10:09 - Orders/Labs/Meds Labs: Laboratory Tests 07/16/18 07/16/18 07/16/18 Range/Units 10:23 10:23 10:23 WBC 15.9 H (5.0-10.0) 10^3/uL RBC 3.51 L (4.6-6.2) 10^6/uL Hgb 10.4 L D (14.0-18.0) g/dL Hct 31.0 L (40.0-54.0) % MCV 88.3 D (80-100) fL MCH 29.6 (27.0-34.0) pg MCHC 33.5 (33.0-35.0) g/dL Plt Count 190 (150-450) 10^3/uL Neut % (Auto) 95.1 H (42.2-75.2) % Lymph % (Auto) 1.0 L (20.5-50.1) % Mccone % (Auto) 3.9 (2-8) % Eos % (Auto) 0.0 L (1.0-3.0) % Baso % (Auto) 0.0 (0.0-1.0) % Add Manual Diff Yes Neutrophils % (Manual) 78 H (42-75) % Band Neutrophils % 18 % Lymphocytes % (Manual) 2 L (20-50) % Monocytes % (Manual) 2 (2-8) % Sodium 129 L (135-145) mmol/L Potassium 4.9 (3.6-5.0) mmol/L Chloride 92 L D (101-111) mmol/L Carbon Dioxide 18.0 L (21.0-31.0) mmol/L Anion Gap 23.9 BUN 86 H D (7-18) mg/dL Creatinine 9.2 H D (0.6-1.3) mg/dL Est Cr Clr Drug Dosing 12.42 mL/min Estimated GFR (MDRD) 6 BUN/Creatinine Ratio 9.34 Glucose 61 L (74-105) mg/dL Lactic Acid 1.5 (0.5-2.2) mmol/L Calcium 6.2 L (8.4-10.2) mg/dl Total Bilirubin 1.4 H (0.2-1.0) mg/dL AST 20 (10-42) IU/L ALT 40 (10-60) IU/L Alkaline Phosphatase 168 H (42-121) IU/L Total Protein 6.0 L (6.7-8.2) g/dl Albumin 2.1 L (3.2-5.5) g/dl Globulin 3.9 Albumin/Globulin Ratio 0.54 Meds: Medications Discontinued Medications Generic Name Dose Route Start Last Admin Trade Name Freq PRN Reason Stop Dose Admin Fentanyl 100 mcg 07/16/18 11:32 07/16/18 11:42 Sublimaze IVPUSH 07/16/18 11:33 100 mcg ONETIME ONE Administration Hydromorphone HCl 1 mg 07/16/18 10:52 07/16/18 10:57 Dilaudid IVPUSH 07/16/18 10:53 1 mg ONETIME ONE Administration Piperacillin Sod/Tazobactam 100 mls @ 200 mls/hr 07/16/18 11:33 07/16/18 11: 43 Sod 3.375 gm/ Sodium Chloride IV 07/16/18 12:02 200 mls/hr ONETIME ONE Administration Vancomycin HCl 1.25 gm/ Sodium 250 mls @ 166.667 mls/hr 07/16/18 12:00 12:18 Chloride IV 07/16/18 13:29 166.667 mls/hr ONETIME ONE Administration Lorazepam 1 mg 07/16/18 12:58 07/16/18 13:05 Ativan IVPUSH 07/16/18 12:59 1 mg ONETIME ONE Administration Vancomycin HCl 1 dose 07/16/18 11:32 Pharmacy To Dose - Vancomycin .XX 07/16/18 11:33 ONETIME ONE - Re-Assessments/Exams Free Text/Narrative Re-Assessment/Exam: 07/17/18 01:46 Results of Positive blood cultures called to [place]: Gram positive cocci in pairs and chains Departure - Departure Disposition: DC/Tfer to [facility] 02 Clinical Impression: Chronic renal failure, stage 5, Hemodialysis patient, Lymphedema Cellulitis Qualifiers: Site of cellulitis: extremity Site of cellulitis of extremity: lower extremity Laterality: right Qualified Code(s): L03.115 - Cellulitis of right lower limb - Discharge Information Referrals: PCP,Unobtain [Primary Care Provider] - Forms: ED Department Discharge, Interfacility Transfer EMTDEBORAH <Siena Metz - Last Filed: 07/17/18 20:51> ED HPI GENERAL MEDICAL PROBLEM - General Source of Information: Reports: Patient, EMS, EMS Notes Reviewed, RN, RN Notes Reviewed History Limitations: Reports: No Limitations - History of Present Illness INITIAL COMMENTS - FREE TEXT/NARRATIVE: Patient presents to ER per [facility] with complaint of right lower leg pain at 10/10. Patient states it began getting red/swollen and painful on Sunday. States he has missed 2 dialysis runs this week. He denies trauma to right leg. He has had no fever, chills, nausea, vomiting, diarrhea, chest pain or shortness of breath. Patient does his dialysis in [place]. Onset: Gradual Duration: Getting Worse Location: Reports: Lower Extremity, Right Quality: Reports: Ache Severity: Severe Improves with: Reports: None Worsens with: Reports: None Associated Symptoms: Reports: No Other Symptoms Right Leg Pain Score (Numeric/FACES): 10 Past Medical History HEENT History: Reports: Sinusitis, Other (See Below) Other HEENT History: wears glasses, tinnitus Cardiovascular History: Reports: High Cholesterol, Hypertension Respiratory History: Reports: None Gastrointestinal History: Reports: Cholelithiasis Genitourinary History: Reports: Chronic Renal Insuffiency, Diabetic Nephropathy Musculoskeletal History: Reports: Amputation, Other (See Below) Other Musculoskeletal History: right side, great toe and 2nd toe Neurological History: Reports: Seizure Psychiatric History: Reports: None Endocrine/Metabolic History: Reports: Diabetes, Type I Hematologic History: Reports: None Immunologic History: Reports: None Oncologic (Cancer) History: Reports: None Dermatologic History: Reports: Cellulitis - Infectious Disease History Infectious Disease History: Reports: MRSA - Past Surgical History HEENT Surgical History: Reports: None Cardiovascular Surgical History: Reports: None Respiratory Surgical History: Reports: None GI Surgical History: Reports: Appendectomy, Cholecystectomy Male Surgical History: Reports: None Endocrine Surgical History: Reports: None Neurological Surgical History: Reports: None Musculoskeletal Surgical History: Reports: Amputation, Other (See Below) Other Musculoskeletal Surgeries/Procedures:: left partial calcanectomy, Left BKA Oncologic Surgical History: Reports: None Dermatological Surgical History: Reports: None Social & Family History - Family History Family Medical History: Noncontributory - Caffeine Use Caffeine Use: Reports: None Other Caffeine Use: diet pop - Living Situation & Occupation Living situation: Reports: with Family ED ROS GENERAL - Review of Systems Review Of Systems: ROS reveals no pertinent complaints other than HPI. ED EXAM, GENERAL - Physical Exam Exam: See Below Exam Limited By: No Limitations General Appearance: Alert, WD/WN, No Apparent Distress Eye Exam: Bilateral Eye: EOMI, Normal Inspection, PERRL Ears: Normal External Exam, Normal Canal, Hearing Grossly Normal, Normal TMs Nose: Normal Inspection, Normal Mucosa, No Blood Throat/Mouth: Normal Inspection, Normal Lips, Normal Teeth, Normal Gums, Normal Oropharynx, Normal Voice, No Airway Compromise Head: Atraumatic, Normocephalic Neck: Normal Inspection, Supple, Non-Tender, Full Range of Motion Respiratory/Chest: No Respiratory Distress, Lungs Clear, Normal Breath Sounds, No Accessory Muscle Use, Chest Non-Tender Cardiovascular: Normal Peripheral Pulses, Regular Rate, Rhythm, No Edema, No Gallop, No JVD, No Murmur, No Rub GI/Abdominal: Normal Bowel Sounds, Soft, Non-Tender, No Organomegaly, No Distention, No Abnormal Bruit, No Mass (Male) Exam: Deferred Rectal (Males) Exam: Deferred Back Exam: Normal Inspection, Full Range of Motion, NT Extremities: Other (right lower leg cellulitis/lymphedema. Left AKA. ) Neurological: Alert, Oriented, CN II-XII Intact, Normal Cognition, Normal Gait, Normal Reflexes, No Motor/Sensory Deficits Psychiatric: Normal Affect, Normal Mood Skin Exam: Other (right lower leg cellulitis with erythema and significant swelling) Lymphatic: No Adenopathy Course - Vital Signs Last Recorded V/S: Last Vital Signs Temp 100.4 F 07/16/18 10:09 Pulse 114 H 07/16/18 10:09 Resp 22 H 07/16/18 10:09 BP 160/75 H 07/16/18 10:09 Pulse Ox 99 07/16/18 10:09 - Orders/Labs/Meds Labs: Laboratory Tests 07/16/18 07/16/18 07/16/18 Range/Units 10:23 10:23 10:23 WBC 15.9 H (5.0-10.0) 10^3/uL RBC 3.51 L (4.6-6.2) 10^6/uL Hgb 10.4 L D (14.0-18.0) g/dL Hct 31.0 L (40.0-54.0) % MCV 88.3 D (80-100) fL MCH 29.6 (27.0-34.0) pg MCHC 33.5 (33.0-35.0) g/dL Plt Count 190 (150-450) 10^3/uL Neut % (Auto) 95.1 H (42.2-75.2) % Lymph % (Auto) 1.0 L (20.5-50.1) % Mccone % (Auto) 3.9 (2-8) % Eos % (Auto) 0.0 L (1.0-3.0) % Baso % (Auto) 0.0 (0.0-1.0) % Add Manual Diff Yes Neutrophils % (Manual) 78 H (42-75) % Band Neutrophils % 18 % Lymphocytes % (Manual) 2 L (20-50) % Monocytes % (Manual) 2 (2-8) % Sodium 129 L (135-145) mmol/L Potassium 4.9 (3.6-5.0) mmol/L Chloride 92 L D (101-111) mmol/L Carbon Dioxide 18.0 L (21.0-31.0) mmol/L Anion Gap 23.9 BUN 86 H D (7-18) mg/dL Creatinine 9.2 H D (0.6-1.3) mg/dL Est Cr Clr Drug Dosing 12.42 mL/min Estimated GFR (MDRD) 6 BUN/Creatinine Ratio 9.34 Glucose 61 L (74-105) mg/dL Lactic Acid 1.5 (0.5-2.2) mmol/L Calcium 6.2 L (8.4-10.2) mg/dl Total Bilirubin 1.4 H (0.2-1.0) mg/dL AST 20 (10-42) IU/L ALT 40 (10-60) IU/L Alkaline Phosphatase 168 H (42-121) IU/L Total Protein 6.0 L (6.7-8.2) g/dl Albumin 2.1 L (3.2-5.5) g/dl Globulin 3.9 Albumin/Globulin Ratio 0.54 Meds: Medications Discontinued Medications Generic Name Dose Route Start Last Admin Trade Name Freq PRN Reason Stop Dose Admin Fentanyl 100 mcg 07/16/18 11:32 07/16/18 11:42 Sublimaze IVPUSH 07/16/18 11:33 100 mcg ONETIME ONE Administration Hydromorphone HCl 1 mg 07/16/18 10:52 07/16/18 10:57 Dilaudid IVPUSH 07/16/18 10:53 1 mg ONETIME ONE Administration Piperacillin Sod/Tazobactam 100 mls @ 200 mls/hr 07/16/18 11:33 07/16/18 11: 43 Sod 3.375 gm/ Sodium Chloride IV 07/16/18 12:02 200 mls/hr ONETIME ONE Administration Vancomycin HCl 1.25 gm/ Sodium 250 mls @ 166.667 mls/hr 07/16/18 12:00 12:18 Chloride IV 07/16/18 13:29 166.667 mls/hr ONETIME ONE Administration Lorazepam 1 mg 07/16/18 12:58 07/16/18 13:05 Ativan IVPUSH 07/16/18 12:59 1 mg ONETIME ONE Administration Vancomycin HCl 1 dose 07/16/18 11:32 Pharmacy To Dose - Vancomycin .XX 07/16/18 11:33 ONETIME ONE - Re-Assessments/Exams Free Text/Narrative Re-Assessment/Exam: 07/16/18 11:39 Patient case discussed with Dr. Cazares at [facility] who agreed to accept the patient for transfer. Departure - Departure Time of Disposition: 13:27 Condition: Fair - Discharge Information *PRESCRIPTION DRUG MONITORING PROGRAM REVIEWED*: No *COPY OF PRESCRIPTION DRUG MONITORING REPORT IN PATIENT LISBET: No
[2018-07-16 10:12] VITALS: BP 160/75
[2018-07-16] MEDS ORDERED: HYDROmorphone 1 MG/ML Syringe IVPUSH ONE (10:52)
[2018-07-16 10:57] LABS: ANION GAP 23.9
[2018-07-16] MEDS ORDERED: fentaNYL 100 MCG/2 ML SDV IVPUSH ONE (11:32)
[2018-07-16] MEDS ORDERED: Piperacillin/Tazobactam 3.375 GM in Sodium Chloride 0.9% 100 ML IV ONE (11:33)
[2018-07-16] MEDS ORDERED: LORazepam 2 MG/ML Syringe IVPUSH ONE (12:58)
== END 2018-07-16 13:20 ==
LOC: DL.ED 10:13
DX: L03.115 Cellulitis of right lower limb (principal); N18.5 Chronic kidney disease, stage 5; I89.0 Lymphedema, not elsewhere classified; E10.22 Type 1 diabetes mellitus with diabetic chronic kidney disease; E10.21 Type 1 diabetes mellitus with diabetic nephropathy; Z99.2 Dependence on renal dialysis; Z79.82 Long term (current) use of aspirin; Z79.899 Other long term (current) drug therapy
CPT/HCPCS: 36415; 80053; 83605; 85025; 87040; 96365; 96367; 96375; 99284; J1170; J2060; J2543; J3010; J3370; J7050; 87077

== ENCOUNTER 2018-07-25 09:03 | Emergency (ER) | payer MEDICAID ==
[2018-07-25 09:11] VITALS: BP 161/77
--- NOTE | 2018-07-25 09:37 | EDM.PDOC ---
ED HPI GENERAL MEDICAL PROBLEM - General Chief Complaint: Wound Recheck Stated Complaint: AMBULANCE Time Seen by Provider: 07/25/18 09:20 Source of Information: Reports: Patient History Limitations: Reports: No Limitations - History of Present Illness INITIAL COMMENTS - FREE TEXT/NARRATIVE: This 37 yo male patient reports to the ED due to pain in his right lower extremity. The patient reports he was transferred from her to [facility] in [place] on 07/16/18 for the same symptoms. The patient reports he got out of [facility] on Sunday. The patient reports there have been no changes to his leg, but he has noticed an increase in pain since yesterday when he ran out of "Oxys". The patient is supposed to be in [place] today for dialysis at 1130. The patient does not think he is currently on any antibiotics for his leg. The patient last had dialysis on Sunday (full run). The patient believes he got some antibiotics after dialysis. Duration: Week(s):, Constant, Getting Worse Location: Reports: Lower Extremity, Right Quality: Reports: Ache, Sharp Severity: Moderate Improves with: Reports: None Worsens with: Reports: None Context: Reports: Other Associated Symptoms: Reports: No Other Symptoms Right Lower Leg Pain Score (Numeric/FACES): 10 - Related Data Allergies Allergy/AdvReac Type Severity Reaction Status Date / Time No Known Allergies Allergy Verified 07/25/18 09:12 Home Meds: Home Meds Acetaminophen [Tylenol] 650 mg PO Q4H PRN #20 tablet 02/10/17 [Rx] Aspirin [Halfprin] 81 mg PO DAILY 08/09/17 [History] Carvedilol 25 mg PO BID 08/09/17 [History] Insulin Aspart [NovoLOG] 14 unit SUBCUT TIDAC 08/09/17 [History] Spironolactone [Aldactone] 25 mg PO DAILY 08/09/17 [History] atorvaSTATin [Lipitor] 40 mg PO BEDTIME 08/09/17 [History] Acetaminophen/oxyCODONE [Percocet 325-5 MG] 1 tab PO Q6H PRN #22 tablet [Rx] Bumetanide [Bumex] 2 mg PO Q48H #30 tablet 09/07/17 [Rx] Calcium Acetate [PhosLo] 667 mg PO TID #90 cap 09/07/17 [Rx] Insulin Detemir [Levemir] 20 unit SUBCUT BID pen 09/07/17 [Rx] amLODIPine Besylate [Amlodipine Besylate] 5 mg PO DAILY #30 tablet 09/07/17 [Rx] hydrALAZINE [Apresoline] 150 mg PO Q8HR #90 tablet 09/07/17 [Rx] Past Medical History HEENT History: Reports: Sinusitis, Other (See Below) Other HEENT History: wears glasses, tinnitus Cardiovascular History: Reports: High Cholesterol, Hypertension Respiratory History: Reports: None Gastrointestinal History: Reports: Cholelithiasis Genitourinary History: Reports: Chronic Renal Insuffiency, Diabetic Nephropathy Musculoskeletal History: Reports: Amputation, Other (See Below) Other Musculoskeletal History: right side, great toe and 2nd toe Neurological History: Reports: Seizure Psychiatric History: Reports: None Endocrine/Metabolic History: Reports: Diabetes, Type I Hematologic History: Reports: None Immunologic History: Reports: None Oncologic (Cancer) History: Reports: None Dermatologic History: Reports: Cellulitis - Infectious Disease History Infectious Disease History: Reports: MRSA - Past Surgical History HEENT Surgical History: Reports: None Cardiovascular Surgical History: Reports: None Respiratory Surgical History: Reports: None GI Surgical History: Reports: Appendectomy, Cholecystectomy Male Surgical History: Reports: None Endocrine Surgical History: Reports: None Neurological Surgical History: Reports: None Musculoskeletal Surgical History: Reports: Amputation, Other (See Below) Other Musculoskeletal Surgeries/Procedures:: left partial calcanectomy, Left BKA Oncologic Surgical History: Reports: None Dermatological Surgical History: Reports: None Social & Family History - Family History Family Medical History: Noncontributory - Tobacco Use Smoking Status *Q: Current Every Day Smoker Years of Tobacco use: 20 Packs/Tins Daily: 0.2 Second Hand Smoke Exposure: Yes - Caffeine Use Caffeine Use: Reports: None Other Caffeine Use: diet pop - Recreational Drug Use Recreational Drug Use: No - Living Situation & Occupation Living situation: Reports: with Family ED ROS GENERAL - Review of Systems Review Of Systems: ROS reveals no pertinent complaints other than HPI. ED EXAM, GENERAL - Physical Exam Exam: See Below Exam Limited By: No Limitations General Appearance: Alert, WD/WN, Moderate Distress Eye Exam: Bilateral Eye: EOMI, Normal Inspection, PERRL Ears: Normal External Exam, Normal Canal, Hearing Grossly Normal, Normal TMs Nose: Normal Inspection, Normal Mucosa, No Blood Throat/Mouth: Normal Inspection, Normal Lips, Normal Teeth, Normal Gums, Normal Oropharynx, Normal Voice, No Airway Compromise Head: Atraumatic, Normocephalic Neck: Normal Inspection, Supple, Non-Tender, Full Range of Motion Respiratory/Chest: No Respiratory Distress, Lungs Clear, Normal Breath Sounds, No Accessory Muscle Use, Chest Non-Tender Cardiovascular: Normal Peripheral Pulses, Regular Rate, Rhythm, No Edema, No Gallop, No JVD, No Murmur, No Rub GI/Abdominal: Normal Bowel Sounds, Soft, Non-Tender, No Organomegaly, No Distention, No Abnormal Bruit, No Mass (Male) Exam: Deferred Rectal (Males) Exam: Deferred Back Exam: Normal Inspection, Full Range of Motion, NT Extremities: Leg Pain (right lower extremity pain, swelling and erythema) Neurological: Alert, Oriented Psychiatric: Normal Affect, Normal Mood Skin Exam: Warm, Dry, Erythema (right lower extremity), Increased Warmth Lymphatic: No Adenopathy Course - Vital Signs Last Recorded V/S: Last Vital Signs Temp 37.7 C 07/25/18 09:03 Pulse 78 07/25/18 09:03 Resp 20 07/25/18 09:03 BP 161/77 H 07/25/18 09:03 Pulse Ox 96 07/25/18 09:03 - Orders/Labs/Meds Orders: Active Orders 24 hr Category Date Time Status CULTURE BLOOD [BC] Stat Lab 07/25/18 09:23 Ordered CULTURE BLOOD [BC] Stat Lab 07/25/18 09:23 Ordered Blood Culture x2 Reflex Set [OM.PC] Stat Oth 07/25/18 09:22 Ordered Labs: Laboratory Tests 07/25/18 07/25/18 07/25/18 Range/Units 09:37 09:37 09:37 WBC 10.7 H (5.0-10.0) 10^3/uL RBC 3.16 L (4.6-6.2) 10^6/uL Hgb 9.2 L (14.0-18.0) g/dL Hct 29.3 L (40.0-54.0) % MCV 92.7 D (80-100) fL MCH 29.1 (27.0-34.0) pg MCHC 31.4 L (33.0-35.0) g/dL Plt Count 271 D (150-450) 10^3/uL Neut % (Auto) 86.7 H (42.2-75.2) % Lymph % (Auto) 5.8 L (20.5-50.1) % Morris % (Auto) 7.3 (2-8) % Eos % (Auto) 0.1 L (1.0-3.0) % Baso % (Auto) 0.1 (0.0-1.0) % Sodium (135-145) mmol/L Potassium (3.6-5.0) mmol/L Chloride (101-111) mmol/L Carbon Dioxide (21.0-31.0) mmol/L Anion Gap BUN (7-18) mg/dL Creatinine (0.6-1.3) mg/dL Est Cr Clr Drug Dosing mL/min Estimated GFR (MDRD) BUN/Creatinine Ratio Glucose (74-105) mg/dL Lactic Acid 0.9 (0.5-2.2) mmol/L Calcium (8.4-10.2) mg/dl Total Bilirubin (0.2-1.0) mg/dL AST (10-42) IU/L ALT (10-60) IU/L Alkaline Phosphatase (42-121) IU/L Total Protein (6.7-8.2) g/dl Albumin (3.2-5.5) g/dl Globulin Albumin/Globulin Ratio Urine Color (YELLOW) Urine Appearance (CLEAR) Urine pH (5.0-9.0) Ur Specific [place] (1.005-1.030) Urine Protein (NEGATIVE) Urine Glucose (UA) (NEGATIVE) Urine Ketones (NEGATIVE) Urine Occult Blood (NEGATIVE) Urine Nitrite (NEGATIVE) Urine Bilirubin (NEGATIVE) Urine Urobilinogen (0.2-1.0) mg/dL Ur Leukocyte Esterase (NEGATIVE) Urine RBC /HPF Urine WBC (0-5/HPF) /HPF Ur Epithelial Cells /HPF Amorphous Sediment (0/HPF) /HPF Urine Bacteria (0-FEW/HPF) /HPF Urine Mucus /LPF Urine Opiates Screen (NEGATIVE) Ur Oxycodone Screen (NEGATIVE) Urine Methadone Screen (NEGATIVE) Ur Barbiturates Screen (NEGATIVE) U Tricyclic Antidepress (NEGATIVE) Ur Phencyclidine Scrn (NEGATIVE) Ur Amphetamine Screen (NEGATIVE) U Methamphetamines Scrn (NEGATIVE) Urine MDMA Screen (NEGATIVE) U Benzodiazepines Scrn (NEGATIVE) Urine Cocaine Screen (NEGATIVE) U Marijuana (THC) Screen (NEGATIVE) Ethyl Alcohol < 5 mg/dL 07/25/18 07/25/18 07/25/18 Range/Units 09:37 10:53 10:53 WBC (5.0-10.0) 10^3/uL RBC (4.6-6.2) 10^6/uL Hgb (14.0-18.0) g/dL Hct (40.0-54.0) % MCV (80-100) fL MCH (27.0-34.0) pg MCHC (33.0-35.0) g/dL Plt Count (150-450) 10^3/uL Neut % (Auto) (42.2-75.2) % Lymph % (Auto) (20.5-50.1) % Morris % (Auto) (2-8) % Eos % (Auto) (1.0-3.0) % Baso % (Auto) (0.0-1.0) % Sodium 131 L (135-145) mmol/L Potassium 4.0 (3.6-5.0) mmol/L Chloride 93 L (101-111) mmol/L Carbon Dioxide 25.0 (21.0-31.0) mmol/L Anion Gap 17.0 BUN 36 H D (7-18) mg/dL Creatinine 6.4 H D (0.6-1.3) mg/dL Est Cr Clr Drug Dosing 17.86 mL/min Estimated GFR (MDRD) 10 BUN/Creatinine Ratio 5.62 Glucose 196 H (74-105) mg/dL Lactic Acid (0.5-2.2) mmol/L Calcium 6.6 L (8.4-10.2) mg/dl Total Bilirubin 0.9 (0.2-1.0) mg/dL AST 21 (10-42) IU/L ALT 20 (10-60) IU/L Alkaline Phosphatase 140 H (42-121) IU/L Total Protein 6.9 (6.7-8.2) g/dl Albumin 1.6 L (3.2-5.5) g/dl Globulin 5.3 Albumin/Globulin Ratio 0.30 Urine Color Yellow (YELLOW) Urine Appearance Slightly cloudy (CLEAR) Urine pH 7.0 (5.0-9.0) Ur Specific [place] 1.020 (1.005-1.030) Urine Protein >=300 H (NEGATIVE) Urine Glucose (UA) 100 H (NEGATIVE) Urine Ketones Trace H (NEGATIVE) Urine Occult Blood Small H (NEGATIVE) Urine Nitrite Negative (NEGATIVE) Urine Bilirubin Small H (NEGATIVE) Urine Urobilinogen 0.2 (0.2-1.0) mg/dL Ur Leukocyte Esterase Negative (NEGATIVE) Urine RBC 20-30 H /HPF Urine WBC 40-50 H (0-5/HPF) /HPF Ur Epithelial Cells Rare /HPF Amorphous Sediment Moderate (0/HPF) /HPF Urine Bacteria Few (0-FEW/HPF) /HPF Urine Mucus Rare /LPF Urine Opiates Screen Negative (NEGATIVE) Ur Oxycodone Screen Positive H (NEGATIVE) Urine Methadone Screen Negative (NEGATIVE) Ur Barbiturates Screen Negative (NEGATIVE) U Tricyclic Antidepress Negative (NEGATIVE) Ur Phencyclidine Scrn Negative (NEGATIVE) Ur Amphetamine Screen Negative (NEGATIVE) U Methamphetamines Scrn Negative (NEGATIVE) Urine MDMA Screen Negative (NEGATIVE) U Benzodiazepines Scrn Negative (NEGATIVE) Urine Cocaine Screen Negative (NEGATIVE) U Marijuana (THC) Screen Negative (NEGATIVE) Ethyl Alcohol mg/dL Meds: Medications Discontinued Medications Generic Name Dose Route Start Last Admin Trade Name Nikia PRN Reason Stop Dose Admin Hydromorphone HCl 1 mg 07/25/18 11:28 Dilaudid IVPUSH 07/25/18 11:29 ONETIME ONE Departure - Departure Time of Disposition: 11:34 Disposition: DC/Tfer to Acute Hospital 02 Condition: Poor Clinical Impression: Cellulitis of right lower extremity CKD (chronic kidney disease) Qualifiers: Chronic kidney disease stage: on chronic dialysis Qualified Code(s): N18.6 - End stage renal disease; Z99.2 - Dependence on renal dialysis - Discharge Information *PRESCRIPTION DRUG MONITORING PROGRAM REVIEWED*: Yes *COPY OF PRESCRIPTION DRUG MONITORING REPORT IN PATIENT LISBET: Yes Forms: Interfacility Transfer EMTALA Care Plan Goals: Discussed the patient's history, examination, lab and dialysis status with Dr. Fields (). Dr. Fields accepted the patient for admission to the [facility] in [place]. The patient will be transported by [facility]. - My Orders Last 24 Hours: My Active Orders 07/25/18 09:22 Blood Culture x2 Reflex Set [OM.PC] Stat 07/25/18 09:23 CULTURE BLOOD [BC] Stat CULTURE BLOOD [BC] Stat - Assessment/Plan Last 24 Hours: My Active Orders 07/25/18 09:22 Blood Culture x2 Reflex Set [OM.PC] Stat 07/25/18 09:23 CULTURE BLOOD [BC] Stat CULTURE BLOOD [BC] Stat
[2018-07-25] MEDS ORDERED: HYDROmorphone 1 MG/ML Syringe IVPUSH ONE (11:28)
== END 2018-07-25 13:02 ==
LOC: DL.ED 09:03
DX: L03.115 Cellulitis of right lower limb (principal); I12.0 Hypertensive chronic kidney disease with stage 5 chronic kidney disease or end stage renal disease; E10.22 Type 1 diabetes mellitus with diabetic chronic kidney disease; N18.6 End stage renal disease; Z99.2 Dependence on renal dialysis; F17.210 Nicotine dependence, cigarettes, uncomplicated; E78.00 Pure hypercholesterolemia, unspecified; Z79.899 Other long term (current) drug therapy
CPT/HCPCS: 36415; 80053; 80305; 81001; 83605; 85025; 87040; 96374; 99285; G0480; J1170

== ENCOUNTER 2018-10-14 11:53 | Emergency (ER) | payer MEDICAID ==
--- NOTE | 2018-10-14 11:59 | EDM.PDOC ---
ED HPI GENERAL MEDICAL PROBLEM - General Chief Complaint: Wound Recheck Stated Complaint: [facility] Time Seen by Provider: 10/14/18 11:55 Source of Information: Reports: Patient, EMS, Old Records, RN, RN Notes Reviewed History Limitations: Reports: No Limitations - History of Present Illness INITIAL COMMENTS - FREE TEXT/NARRATIVE: Pt arrives to ER from home by ambulance after home health nurse saw the pt today for the first time and alerted pt's family that the pt's right lower leg ulcers were "full of maggots". Pt state the wounds have been present for "many months", but he isn't sure of exactly how long. Pt thinks the wounds are slowly getting larger and recently have been draining more pus. Pt reports mild but persistent pain to the right leg. He denies fever, chills, N/V, or erythema. Pt has Hx of DM Type 1, ESRD on hemodialysis Sun//Sun. at [place], PVD, s/p left BKA, and Rt 1st toe amputation. Pt states that he receives all of his specialty care from [facility]. Onset: Unknown/Unsure Duration: Chronic, Constant, Getting Worse Location: Reports: Lower Extremity, Right Quality: Reports: Ache Severity: Mild Improves with: Reports: None Worsens with: Reports: None Associated Symptoms: Reports: No Other Symptoms - Related Data Allergies Allergy/AdvReac Type Severity Reaction Status Date / Time No Known Allergies Allergy Verified 10/14/18 12:24 Home Meds: Home Meds Acetaminophen [Tylenol] 650 mg PO Q4H PRN #20 tablet 02/10/17 [Rx] Aspirin [Halfprin] 81 mg PO DAILY 08/09/17 [History] Carvedilol 25 mg PO BID 08/09/17 [History] Insulin Aspart [NovoLOG] 14 unit SUBCUT TIDAC 08/09/17 [History] Spironolactone [Aldactone] 25 mg PO DAILY 08/09/17 [History] atorvaSTATin [Lipitor] 40 mg PO BEDTIME 08/09/17 [History] Acetaminophen/oxyCODONE [Percocet 325-5 MG] 1 tab PO Q6H PRN #22 tablet [Rx] Bumetanide [Bumex] 2 mg PO Q48H #30 tablet 09/07/17 [Rx] Calcium Acetate [PhosLo] 667 mg PO TID #90 cap 09/07/17 [Rx] Insulin Detemir [Levemir] 20 unit SUBCUT BID pen 09/07/17 [Rx] amLODIPine Besylate [Amlodipine Besylate] 5 mg PO DAILY #30 tablet 09/07/17 [Rx] hydrALAZINE [Apresoline] 150 mg PO Q8HR #90 tablet 09/07/17 [Rx] Past Medical History HEENT History: Reports: Sinusitis, Other (See Below) Other HEENT History: wears glasses, tinnitus Cardiovascular History: Reports: High Cholesterol, Hypertension Respiratory History: Reports: None Gastrointestinal History: Reports: Cholelithiasis Genitourinary History: Reports: Chronic Renal Insuffiency, Diabetic Nephropathy Musculoskeletal History: Reports: Amputation, Other (See Below) Other Musculoskeletal History: right side, great toe and 2nd toe Neurological History: Reports: Seizure Psychiatric History: Reports: None Endocrine/Metabolic History: Reports: Diabetes, Type I Hematologic History: Reports: None Immunologic History: Reports: None Oncologic (Cancer) History: Reports: None Dermatologic History: Reports: Cellulitis, Venous Stasis Dermatitis, Other (See Below) (Chronic non-healing ulcers/wounds to Rt lower leg) - Infectious Disease History Infectious Disease History: Reports: MRSA - Past Surgical History HEENT Surgical History: Reports: None Cardiovascular Surgical History: Reports: None Respiratory Surgical History: Reports: None GI Surgical History: Reports: Appendectomy, Cholecystectomy Male Surgical History: Reports: None Endocrine Surgical History: Reports: None Neurological Surgical History: Reports: None Musculoskeletal Surgical History: Reports: Amputation, Other (See Below) Other Musculoskeletal Surgeries/Procedures:: left partial calcanectomy, Left BKA Oncologic Surgical History: Reports: None Dermatological Surgical History: Reports: None Social & Family History - Family History Family Medical History: Noncontributory - Caffeine Use Caffeine Use: Reports: None Other Caffeine Use: diet pop - Living Situation & Occupation Living situation: Reports: with Family ED ROS GENERAL - Review of Systems Review Of Systems: ROS reveals no pertinent complaints other than HPI. ED EXAM, SKIN/RASH Exam: See Below Exam Limited By: No Limitations General Appearance: Alert, No Apparent Distress, Other (Chronically ill appearing) Nose: Normal Inspection Throat/Mouth: Normal Voice, No Airway Compromise Head: Atraumatic, Normocephalic Neck: Normal Inspection Respiratory/Chest: No Respiratory Distress, Lungs Clear, Normal Breath Sounds, No Accessory Muscle Use, Chest Non-Tender Cardiovascular: Regular Rate, Rhythm GI/Abdominal: Normal Bowel Sounds, Soft, Non-Tender Extremities: Slow Capillary Refill (Rt lower extremity.), Increased Warmth (Rt lower leg.), Other (Rt lower leg with chronic venous stasis changes with chronic non-healing ulcers (unstagable) with multiple maggots present, and a small amount of yellowish purulent malodorous drainage. Rt toe amputation. Left BKA. ) Neurological: Alert, Oriented, Normal Cognition, No Motor/Sensory Deficits Psychiatric: Normal Mood Course - Vital Signs Last Recorded V/S: Last Vital Signs Temp 98.9 F 10/14/18 11:55 Pulse 86 10/14/18 12:36 Resp 16 10/14/18 12:36 BP 177/76 H 10/14/18 12:36 Pulse Ox 93 L 10/14/18 12:36 - Orders/Labs/Meds Orders: Active Orders 24 hr Category Date Time Status Peripheral IV Care [RC] . DIRECTED Care 10/14/18 12:03 Active Sodium Chloride 0.9% [Saline Flush] Med 10/14/18 12:03 Active 10 ml FLUSH ASDIRECTED PRN Peripheral IV Insertion Adult [OM.PC] Stat Oth 10/14/18 12:03 Ordered Medication Orders Sodium Chloride (Saline Flush) 10 ml FLUSH ASDIRECTED PRN PRN Reason: Keep Vein Open Labs: Laboratory Tests 10/14/18 10/14/18 10/14/18 Range/Units 12:20 12:20 12:20 WBC 4.6 L (5.0-10.0) 10^3/uL RBC 3.41 L (4.6-6.2) 10^6/uL Hgb 10.1 L (14.0-18.0) g/dL Hct 32.3 L (40.0-54.0) % MCV 94.7 (80-100) fL MCH 29.6 (27.0-34.0) pg MCHC 31.3 L (33.0-35.0) g/dL Plt Count 210 (150-450) 10^3/uL Neut % (Auto) 60.7 (42.2-75.2) % Lymph % (Auto) 20.3 L (20.5-50.1) % [place] % (Auto) 15.6 H (2-8) % Eos % (Auto) 3.2 H (1.0-3.0) % Baso % (Auto) 0.2 (0.0-1.0) % Sodium 130 L (135-145) mmol/L Potassium 5.6 H D (3.6-5.0) mmol/L Chloride 93 L (101-111) mmol/L Carbon Dioxide 25.0 (21.0-31.0) mmol/L Anion Gap 17.6 BUN 30 H (7-18) mg/dL Creatinine 7.7 H D (0.6-1.3) mg/dL Est Cr Clr Drug Dosing 14.84 mL/min Estimated GFR (MDRD) 8 BUN/Creatinine Ratio 3.89 Glucose 136 H (74-105) mg/dL Calcium 7.6 L (8.4-10.2) mg/dl Total Bilirubin 1.0 (0.2-1.0) mg/dL AST 32 (10-42) IU/L ALT 14 (10-60) IU/L Alkaline Phosphatase 126 H (42-121) IU/L C-Reactive Protein 7.1 H (0.0-1.3) mg/dL Total Protein 7.7 (6.7-8.2) g/dl Albumin 2.6 L (3.2-5.5) g/dl Globulin 5.1 Albumin/Globulin Ratio 0.51 Meds: Medications Generic Name Dose Route Start Last Admin Trade Name Freq PRN Reason Stop Dose Admin Sodium Chloride 10 ml 10/14/18 12:03 Saline Flush FLUSH ASDIRECTED PRN Keep Vein Open - Re-Assessments/Exams Free Text/Narrative Re-Assessment/Exam: 10/14/18 12:16 Several maggots removed from right lower leg ulcers with forceps. Departure - Departure Time of Disposition: 13:05 Disposition: DC/Tfer to Acute Hospital 02 Condition: Serious Clinical Impression: Maggot infestation, History of type 1 diabetes mellitus, ESRD on hemodialysis Nonhealing ulcer of right lower leg Qualifiers: Non-pressure ulcer stage: unspecified non-pressure ulcer stage Qualified Code(s ): L97.919 - Non-pressure chronic ulcer of unspecified part of right lower leg with unspecified severity - Discharge Information *PRESCRIPTION DRUG MONITORING PROGRAM REVIEWED*: No *COPY OF PRESCRIPTION DRUG MONITORING REPORT IN PATIENT LISBET: No Forms: ED Department Discharge, Interfacility Transfer EMTALA - My Orders Last 24 Hours: My Active Orders 10/14/18 12:03 Peripheral IV Care [RC] . DIRECTED Sodium Chloride 0.9% [Saline Flush] 10 ml FLUSH ASDIRECTED PRN Peripheral IV Insertion Adult [OM.PC] Stat - Assessment/Plan Last 24 Hours: My Active Orders 10/14/18 12:03 Peripheral IV Care [RC] . DIRECTED Sodium Chloride 0.9% [Saline Flush] 10 ml FLUSH ASDIRECTED PRN Peripheral IV Insertion Adult [OM.PC] Stat
[2018-10-14] MEDS ORDERED: Sodium Chloride 0.9% 10 ML Syringe FLUSH PRN (12:03)
[2018-10-14 12:37] VITALS: BP 177/76
[2018-10-14 12:46] LABS: ANION GAP 17.6
== END 2018-10-14 14:37 ==
LOC: DL.ED 11:53
DX: E10.622 Type 1 diabetes mellitus with other skin ulcer (principal); L97.919 Non-pressure chronic ulcer of unspecified part of right lower leg with unspecified severity; B87.1 Wound myiasis; E10.22 Type 1 diabetes mellitus with diabetic chronic kidney disease; I12.0 Hypertensive chronic kidney disease with stage 5 chronic kidney disease or end stage renal disease; N18.6 End stage renal disease; E10.21 Type 1 diabetes mellitus with diabetic nephropathy; Z99.2 Dependence on renal dialysis; Z79.4 Long term (current) use of insulin; Z79.82 Long term (current) use of aspirin; Z79.899 Other long term (current) drug therapy; Z90.49 Acquired absence of other specified parts of digestive tract
CPT/HCPCS: 36415; 80053; 85025; 86140; 99284

== ENCOUNTER 2018-10-29 00:01 | Emergency (ER) | payer MEDICARE, MEDICAID ==
[2018-10-29 00:11] VITALS: BP 151/101
[2018-10-29] MEDS: LORazepam 1 MG Tab PO ONE (00:42)
[2018-10-29 01:09] LABS: ANION GAP 18.3
[2018-10-29] MEDS: Acetaminophen/oxyCODONE 325-5 MG Tab PO ONE (01:25)
--- NOTE | 2018-10-29 01:30 | EDM.PDOC ---
ED HPI GENERAL MEDICAL PROBLEM - General Chief Complaint: General Stated Complaint: PAIN [id number] Time Seen by Provider: 10/29/18 00:10 Source of Information: Reports: Patient, RN History Limitations: Reports: No Limitations - History of Present Illness INITIAL COMMENTS - FREE TEXT/NARRATIVE: ED with c/o being restless and itermittent arm and leg pain. Chronic but unable to tolerate it tonight. Stated he has told PCP and they"haven't done anything" Rx for oxycodone during last hospitalization in [place]. has been taking 2 a day and ran out yesterday. Due for dialysis tomorrow at noon. No fever or chills., reports woulnds healing. Doing own dressing changes and trying to get better control of diabetes. Bilateral Leg Pain Score (Numeric/FACES): 8 - Related Data Allergies Allergy/AdvReac Type Severity Reaction Status Date / Time No Known Allergies Allergy Verified 10/14/18 12:24 Home Meds: Home Meds Acetaminophen [Tylenol] 650 mg PO Q4H PRN #20 tablet 02/10/17 [Rx] Aspirin [Halfprin] 81 mg PO DAILY 08/09/17 [History] Carvedilol 25 mg PO BID 08/09/17 [History] Insulin Aspart [NovoLOG] 14 unit SUBCUT TIDAC 08/09/17 [History] Spironolactone [Aldactone] 25 mg PO DAILY 08/09/17 [History] atorvaSTATin [Lipitor] 40 mg PO BEDTIME 08/09/17 [History] Acetaminophen/oxyCODONE [Percocet 325-5 MG] 1 tab PO Q6H PRN #22 tablet [Rx] Bumetanide [Bumex] 2 mg PO Q48H #30 tablet 09/07/17 [Rx] Calcium Acetate [PhosLo] 667 mg PO TID #90 cap 09/07/17 [Rx] Insulin Detemir [Levemir] 20 unit SUBCUT BID pen 09/07/17 [Rx] amLODIPine Besylate [Amlodipine Besylate] 5 mg PO DAILY #30 tablet 09/07/17 [Rx] hydrALAZINE [Apresoline] 150 mg PO Q8HR #90 tablet 09/07/17 [Rx] Past Medical History HEENT History: Reports: Sinusitis, Other (See Below) Other HEENT History: wears glasses, tinnitus Cardiovascular History: Reports: High Cholesterol, Hypertension Respiratory History: Reports: None Gastrointestinal History: Reports: Cholelithiasis Genitourinary History: Reports: Chronic Renal Insuffiency, Diabetic Nephropathy Musculoskeletal History: Reports: Amputation, Other (See Below) Other Musculoskeletal History: right side, great toe and 2nd toe Neurological History: Reports: Seizure Psychiatric History: Reports: None Endocrine/Metabolic History: Reports: Diabetes, Type I Hematologic History: Reports: None Immunologic History: Reports: None Oncologic (Cancer) History: Reports: None Dermatologic History: Reports: Cellulitis, Venous Stasis Dermatitis, Other (See Below) - Infectious Disease History Infectious Disease History: Reports: MRSA - Past Surgical History HEENT Surgical History: Reports: None Cardiovascular Surgical History: Reports: None Respiratory Surgical History: Reports: None GI Surgical History: Reports: Appendectomy, Cholecystectomy Male Surgical History: Reports: None Endocrine Surgical History: Reports: None Neurological Surgical History: Reports: None Musculoskeletal Surgical History: Reports: Amputation, Other (See Below) Other Musculoskeletal Surgeries/Procedures:: left partial calcanectomy, Left BKA Oncologic Surgical History: Reports: None Dermatological Surgical History: Reports: None Social & Family History - Family History Family Medical History: Noncontributory - Tobacco Use Smoking Status *Q: Current Every Day Smoker Years of Tobacco use: 10 Packs/Tins Daily: 1 - Caffeine Use Caffeine Use: Reports: None Other Caffeine Use: diet pop - Recreational Drug Use Recreational Drug Use: No - Living Situation & Occupation Living situation: Reports: with Family ED ROS GENERAL - Review of Systems Review Of Systems: ROS reveals no pertinent complaints other than HPI. ED EXAM, GENERAL - Physical Exam Exam: See Below Exam Limited By: No Limitations General Appearance: Alert, Anxious (pacing), Moderate Distress Eye Exam: Bilateral Eye: EOMI, PERRL Ears: Normal External Exam, Hearing Grossly Normal Nose: Normal Inspection, Normal Mucosa Throat/Mouth: Normal Inspection, Normal Lips Head: Atraumatic, Normocephalic Neck: Normal Inspection Respiratory/Chest: No Respiratory Distress, Lungs Clear, Normal Breath Sounds Cardiovascular: Normal Peripheral Pulses, Regular Rate, Rhythm, Other (dialysis fistula left forearm with thrill, no swelling or redness to extremity. good brachial and radial pulse. ) GI/Abdominal: Normal Bowel Sounds, Soft Back Exam: Full Range of Motion Extremities: Pedal Edema (2+ right), Other (BKA left) Neurological: Alert, Oriented, Normal Cognition Psychiatric: Anxious (pacing hitting at right arm, shaking leg, restless) Skin Exam: Warm, Dry, Other (ulcers right lower andterior lower leg and medial lower leg <5mm scant yellow drainage on dressing . ) Course - Vital Signs Last Recorded V/S: Last Vital Signs Temp 97.3 F 10/29/18 00:05 Pulse 95 10/29/18 00:05 Resp 18 10/29/18 00:05 BP 151/101 H 10/29/18 00:05 Pulse Ox 98 10/29/18 00:05 - Orders/Labs/Meds Orders: Active Orders 24 hr Category Date Time Status CULTURE BLOOD [BC] Stat Lab 10/29/18 00:42 Received Labs: Laboratory Tests 10/29/18 10/29/18 10/29/18 Range/Units 00:22 00:22 00:42 WBC 7.2 (5.0-10.0) 10^3/uL RBC 4.02 L (4.6-6.2) 10^6/uL Hgb 11.8 L D (14.0-18.0) g/dL Hct 36.4 L (40.0-54.0) % MCV 90.5 D (80-100) fL MCH 29.4 (27.0-34.0) pg MCHC 32.4 L (33.0-35.0) g/dL Plt Count 179 (150-450) 10^3/uL Neut % (Auto) 58.5 (42.2-75.2) % Lymph % (Auto) 20.8 (20.5-50.1) % [place] % (Auto) 9.0 H (2-8) % Eos % (Auto) 11.4 H (1.0-3.0) % Baso % (Auto) 0.3 (0.0-1.0) % Sodium (135-145) mmol/L Potassium (3.6-5.0) mmol/L Chloride (101-111) mmol/L Carbon Dioxide (21.0-31.0) mmol/L Anion Gap BUN (7-18) mg/dL Creatinine (0.6-1.3) mg/dL Est Cr Clr Drug Dosing mL/min Estimated GFR (MDRD) BUN/Creatinine Ratio Glucose (74-105) mg/dL Lactic Acid (0.5-2.2) mmol/L Calcium (8.4-10.2) mg/dl Total Bilirubin (0.2-1.0) mg/dL AST (10-42) IU/L ALT (10-60) IU/L Alkaline Phosphatase (42-121) IU/L Total Protein (6.7-8.2) g/dl Albumin (3.2-5.5) g/dl Globulin Albumin/Globulin Ratio Urine Color Yellow (YELLOW) Urine Appearance Clear (CLEAR) Urine pH 7.0 (5.0-9.0) Ur Specific [place] 1.020 (1.005-1.030) Urine Protein >=300 H (NEGATIVE) Urine Glucose (UA) 100 H (NEGATIVE) Urine Ketones Trace H (NEGATIVE) Urine Occult Blood Moderate H (NEGATIVE) Urine Nitrite Negative (NEGATIVE) Urine Bilirubin Negative (NEGATIVE) Urine Urobilinogen 0.2 (0.2-1.0) mg/dL Ur Leukocyte Esterase Negative (NEGATIVE) Urine RBC >100 H /HPF Urine WBC 5-10 H (0-5/HPF) /HPF Ur Epithelial Cells Few (NOT SEEN) /HPF Urine Bacteria Moderate H (0-FEW/HPF) /HPF Fine Granular Casts Few H (NOT SEEN) /LPF Urine Opiates Screen Negative (NEGATIVE) Ur Oxycodone Screen Positive H (NEGATIVE) Urine Methadone Screen Negative (NEGATIVE) Ur Barbiturates Screen Negative (NEGATIVE) U Tricyclic Antidepress Negative (NEGATIVE) Ur Phencyclidine Scrn Negative (NEGATIVE) Ur Amphetamine Screen Negative (NEGATIVE) U Methamphetamines Scrn Negative (NEGATIVE) Urine MDMA Screen Negative (NEGATIVE) U Benzodiazepines Scrn Negative (NEGATIVE) Urine Cocaine Screen Negative (NEGATIVE) U Marijuana (THC) Screen Negative (NEGATIVE) 10/29/18 10/29/18 Range/Units 00:42 00:42 WBC (5.0-10.0) 10^3/uL RBC (4.6-6.2) 10^6/uL Hgb (14.0-18.0) g/dL Hct (40.0-54.0) % MCV (80-100) fL MCH (27.0-34.0) pg MCHC (33.0-35.0) g/dL Plt Count (150-450) 10^3/uL Neut % (Auto) (42.2-75.2) % Lymph % (Auto) (20.5-50.1) % [place] % (Auto) (2-8) % Eos % (Auto) (1.0-3.0) % Baso % (Auto) (0.0-1.0) % Sodium 133 L (135-145) mmol/L Potassium 5.3 H (3.6-5.0) mmol/L Chloride 98 L (101-111) mmol/L Carbon Dioxide 22.0 (21.0-31.0) mmol/L Anion Gap 18.3 BUN 52 H (7-18) mg/dL Creatinine 8.2 H (0.6-1.3) mg/dL Est Cr Clr Drug Dosing 13.94 mL/min Estimated GFR (MDRD) 7 BUN/Creatinine Ratio 6.34 Glucose 124 H (74-105) mg/dL Lactic Acid 0.8 (0.5-2.2) mmol/L Calcium 8.6 (8.4-10.2) mg/dl Total Bilirubin 1.4 H (0.2-1.0) mg/dL AST 48 H (10-42) IU/L ALT 69 H (10-60) IU/L Alkaline Phosphatase 135 H (42-121) IU/L Total Protein 8.8 H (6.7-8.2) g/dl Albumin 3.3 (3.2-5.5) g/dl Globulin 5.5 Albumin/Globulin Ratio 0.60 Urine Color (YELLOW) Urine Appearance (CLEAR) Urine pH (5.0-9.0) Ur Specific [place] (1.005-1.030) Urine Protein (NEGATIVE) Urine Glucose (UA) (NEGATIVE) Urine Ketones (NEGATIVE) Urine Occult Blood (NEGATIVE) Urine Nitrite (NEGATIVE) Urine Bilirubin (NEGATIVE) Urine Urobilinogen (0.2-1.0) mg/dL Ur Leukocyte Esterase (NEGATIVE) Urine RBC /HPF Urine WBC (0-5/HPF) /HPF Ur Epithelial Cells (NOT SEEN) /HPF Urine Bacteria (0-FEW/HPF) /HPF Fine Granular Casts (NOT SEEN) /LPF Urine Opiates Screen (NEGATIVE) Ur Oxycodone Screen (NEGATIVE) Urine Methadone Screen (NEGATIVE) Ur Barbiturates Screen (NEGATIVE) U Tricyclic Antidepress (NEGATIVE) Ur Phencyclidine Scrn (NEGATIVE) Ur Amphetamine Screen (NEGATIVE) U Methamphetamines Scrn (NEGATIVE) Urine MDMA Screen (NEGATIVE) U Benzodiazepines Scrn (NEGATIVE) Urine Cocaine Screen (NEGATIVE) U Marijuana (THC) Screen (NEGATIVE) Meds: Medications Discontinued Medications Generic Name Dose Route Start Last Admin Trade Name Freq PRN Reason Stop Dose Admin Lorazepam 1 mg 10/29/18 00:38 10/29/18 00:42 Ativan PO 10/29/18 00:39 1 mg ONETIME ONE Administration Oxycodone/Acetaminophen 1 tab 10/29/18 01:21 10/29/18 01:25 Percocet 325-5 Mg PO 10/29/18 01:22 1 tab ONETIME ONE Administration Departure - Departure Time of Disposition: 01:23 Disposition: Home, Self-Care 01 Condition: Good Clinical Impression: Neuropathy, Type I diabetes mellitus - poor control, ESRD on hemodialysis Chronic pain Qualifiers: Chronic pain type: other chronic pain Qualified Code(s): G89.29 - Other chronic pain - Discharge Information *PRESCRIPTION DRUG MONITORING PROGRAM REVIEWED*: Yes *COPY OF PRESCRIPTION DRUG MONITORING REPORT IN PATIENT LISBET: No Instructions: Neuropathic Pain Forms: ED Department Discharge Additional Instructions: Dialysis today as scheduled follow up with primary care for pain management continue home medications - My Orders Last 24 Hours: My Active Orders 10/29/18 00:42 CULTURE BLOOD [BC] Stat - Assessment/Plan Last 24 Hours: My Active Orders 10/29/18 00:42 CULTURE BLOOD [BC] Stat
== END 2018-10-29 01:30 | disposition home or self-care (01) ==
LOC: DL.ED 00:01
DX: E10.40 Type 1 diabetes mellitus with diabetic neuropathy, unspecified (principal); E10.22 Type 1 diabetes mellitus with diabetic chronic kidney disease; I12.0 Hypertensive chronic kidney disease with stage 5 chronic kidney disease or end stage renal disease; N18.6 End stage renal disease; G89.29 Other chronic pain; E10.21 Type 1 diabetes mellitus with diabetic nephropathy; F17.210 Nicotine dependence, cigarettes, uncomplicated; Z79.82 Long term (current) use of aspirin; Z79.899 Other long term (current) drug therapy; Z99.2 Dependence on renal dialysis
CPT/HCPCS: 36415; 80053; 80305; 81001; 83605; 85025; 87040; 99283; A9270

== ENCOUNTER 2019-11-28 18:15 | Emergency (ER) | payer MEDICARE, MEDICAID ==
[2019-11-28] MEDS ORDERED: HYDROmorphone 1 MG/ML Syringe IVPUSH ONE (18:58)
[2019-11-28] MEDS ORDERED: Ondansetron 4 MG/2 ML SDV IV ONE (18:58)
[2019-11-28] MEDS ORDERED: Clindamycin Phosphate 900 MG in Sodium Chloride 0.9% 100 ML IV ONE (19:22)
[2019-11-28] MEDS ORDERED: Acetaminophen 325 MG Tab PO ONE (19:25)
--- NOTE | 2019-11-28 19:33 | EDM.PDOC ---
ED HPI GENERAL MEDICAL PROBLEM - General Chief Complaint: Lower Extremity Injury/Pain Stated Complaint: AMBULANCE Time Seen by Provider: 11/28/19 19:28 Source of Information: Reports: Patient History Limitations: Reports: No Limitations - History of Present Illness INITIAL COMMENTS - FREE TEXT/NARRATIVE: c/o worsening bad smell form his right foot past 4 days and increase pain. dialysis [facility] @ [facility]. last one yesterday. Other Treatments TALENT DEVELOPMENT SPECIALIST: none Left Shoulder Pain Score (Numeric/FACES): 9 - Related Data Allergies Allergy/AdvReac Type Severity Reaction Status Date / Time No Known Allergies Allergy Verified 11/28/19 18:40 Home Meds: Home Meds Acetaminophen [Tylenol] 650 mg PO Q4H PRN #20 tablet 02/10/17 [Rx] Aspirin [Halfprin] 81 mg PO DAILY 08/09/17 [History] Insulin Aspart [NovoLOG] 0 unit SUBCUT TIDAC 08/09/17 [History] Spironolactone [Aldactone] 25 mg PO DAILY 08/09/17 [History] atorvaSTATin [Lipitor] 40 mg PO BEDTIME 08/09/17 [History] carvediloL [Carvedilol] 25 mg PO BID 08/09/17 [History] Calcium Acetate [PhosLo] 667 mg PO TID #90 cap 09/07/17 [Rx] amLODIPine Besylate [Amlodipine Besylate] 5 mg PO DAILY #30 tablet 09/07/17 [Rx] hydrALAZINE [Apresoline] 150 mg PO Q8HR #90 tablet 09/07/17 [Rx] Insulin Detemir [Levemir] 30 unit SUBCUT QAM 11/28/19 [History] Past Medical History HEENT History: Reports: Sinusitis, Other (See Below) Other HEENT History: wears glasses, tinnitus Cardiovascular History: Reports: High Cholesterol, Hypertension Respiratory History: Reports: None Gastrointestinal History: Reports: Cholelithiasis Genitourinary History: Reports: Chronic Renal Insuffiency, Diabetic Nephropathy Musculoskeletal History: Reports: Amputation, Other (See Below) Other Musculoskeletal History: right side, great toe and 2nd toe Neurological History: Reports: Seizure Psychiatric History: Reports: None Endocrine/Metabolic History: Reports: Diabetes, Type I Hematologic History: Reports: None Immunologic History: Reports: None Oncologic (Cancer) History: Reports: None Dermatologic History: Reports: Cellulitis, Venous Stasis Dermatitis, Other (See Below) - Infectious Disease History Infectious Disease History: Reports: MRSA - Past Surgical History HEENT Surgical History: Reports: None Cardiovascular Surgical History: Reports: None Respiratory Surgical History: Reports: None GI Surgical History: Reports: Appendectomy, Cholecystectomy Male Surgical History: Reports: None Endocrine Surgical History: Reports: None Neurological Surgical History: Reports: None Musculoskeletal Surgical History: Reports: Amputation, Other (See Below) Other Musculoskeletal Surgeries/Procedures:: left partial calcanectomy, Left BKA Oncologic Surgical History: Reports: None Dermatological Surgical History: Reports: None Social & Family History - Family History Family Medical History: Noncontributory - Tobacco Use Smoking Status *Q: Light Tobacco Smoker Years of Tobacco use: 22 Packs/Tins Daily: 0.1 - Caffeine Use Caffeine Use: Reports: None Other Caffeine Use: diet pop - Recreational Drug Use Recreational Drug Use: No - Living Situation & Occupation Living situation: Reports: with Family Review of Systems - Review of Systems Review Of Systems: Comprehensive ROS is negative, except as noted in HPI. ED EXAM, GENERAL - Physical Exam Exam: See Below Exam Limited By: No Limitations General Appearance: Alert, WD/WN, Mild Distress, Moderate Distress, Other (pain) Ears: Hearing Grossly Normal Throat/Mouth: Normal Voice, No Airway Compromise Head: Atraumatic Neck: Non-Tender, Full Range of Motion Respiratory/Chest: No Respiratory Distress Cardiovascular: Regular Rate, Rhythm GI/Abdominal: Soft, Non-Tender Extremities: Other (right foot celluitis and open odious heel wound. left AKA) Neurological: Alert, Oriented, Normal Cognition, No Motor/Sensory Deficits Psychiatric: Tearful Skin Exam: Warm, Dry, Normal Color Lymphatic: No Adenopathy Course - Vital Signs Last Recorded V/S: Last Vital Signs Temp 39.6 C H 11/28/19 19:40 Pulse 90 11/28/19 19:40 Resp 20 11/28/19 19:40 BP 118/66 11/28/19 19:40 Pulse Ox 98 11/28/19 19:40 - Orders/Labs/Meds Orders: Active Orders 24 hr Category Date Time Status CULTURE BLOOD [BC] Stat Lab 11/28/19 18:20 Received CULTURE BLOOD [BC] Stat Lab 11/28/19 18:25 Results REFLEX LACTIC ACID YES OR NO [CHEM] Routine Lab 11/28/19 19:08 Received Blood Culture x2 Reflex Set [OM.PC] Stat Oth 11/28/19 18:09 Ordered Labs: Laboratory Tests 11/28/19 11/28/19 11/28/19 Range/Units 18:25 18:25 18:25 WBC 11.8 H (5.0-10.0) 10^3/uL RBC 2.62 L (4.6-6.2) 10^6/uL Hgb 8.0 L D (14.0-18.0) g/dL Hct 24.8 L (40.0-54.0) % MCV 94.7 D (80-100) fL MCH 30.5 (27.0-34.0) pg MCHC 32.3 L (33.0-35.0) g/dL Plt Count 267 D (150-450) 10^3/uL Neut % (Auto) 85.4 H (42.2-75.2) % Lymph % (Auto) 5.5 L (20.5-50.1) % Maverick % (Auto) 8.7 H (2-8) % Eos % (Auto) 0.3 L (1.0-3.0) % Baso % (Auto) 0.1 (0.0-1.0) % Sodium 133 L (136-145) mmol/L Potassium 4.0 (3.5-5.1) mmol/L Chloride 92 L (98-107) mmol/L Carbon Dioxide 32 (21-32) mmol/L Anion Gap 13.0 (7-13) mEq/L BUN 41 H (7-18) mg/dL Creatinine 6.59 H* (0.70-1.30) mg/dL Est Cr Clr Drug Dosing 17.18 mL/min Estimated GFR (MDRD) 9 BUN/Creatinine Ratio 6.2 (No establ ref range) Glucose 102 H (74-99) mg/dL Lactic Acid 2.3 H* (0.4-2.0) mmol/L Calcium 8.3 L (8.5-10.1) mg/dL Total Bilirubin 0.6 (0.2-1.0) mg/dL AST 24 (15-37) U/L ALT 49 (16-63) U/L Alkaline Phosphatase 230 H (46-116) U/L Total Protein 7.7 (6.4-8.2) g/dL Albumin 2.1 L (3.4-5.0) g/dL Globulin 5.6 Albumin/Globulin Ratio 0.38 Meds: Medications Discontinued Medications Generic Name Dose Route Start Last Admin Trade Name Fabriceq PRN Reason Stop Dose Admin Acetaminophen 650 mg 11/28/19 19:25 11/28/19 19:44 Tylenol PO 11/28/19 19:26 650 mg NOW ONE Administration Hydromorphone HCl 1 mg 11/28/19 18:58 11/28/19 19:09 Dilaudid IVPUSH 11/28/19 18:59 1 mg ONETIME ONE Administration Clindamycin Phosphate 900 mg/ 106 mls @ 200 mls/hr 11/28/19 19:22 11/28/19 19:45 Sodium Chloride IV 11/28/19 19:53 200 mls/hr ONETIME ONE Administration Ondansetron HCl 4 mg 11/28/19 18:58 11/28/19 19:09 Zofran IV 11/28/19 18:59 4 mg ONETIME ONE Administration - Re-Assessments/Exams Free Text/Narrative Re-Assessment/Exam: 11/28/19 20:[address] Huerta who kindly accepted pt. Departure - Departure Time of Disposition: 20:05 Disposition: DC/Tfer to Acute Hospital 02 Condition: Fair Clinical Impression: Cellulitis of foot without toes, right - Discharge Information Forms[facility] Seps[facility] Event Note (ED) - Evaluation Sepsis Screening Result: No Definite Risk - Focused Exam Vital Signs: Vital Signs Temp Pulse Resp BP Pulse Ox 11/28/19 19:40 39.6 C H 90 20 118/66 98 11/28/19 18:19 39.1 C H 87 22 H 123/65 94 L
[2019-11-28 19:41] VITALS: BP 118/66; PULSE 90
[2019-11-28] MEDS ORDERED: 50% Dextrose in Water 50 ML Syringe ONE ×2 (21:33→21:35)
[2019-11-28] MEDS ORDERED: 50% Dextrose in Water 50 ML Syringe IVPUSH ONE (21:35)
== END 2019-11-28 22:16 ==
LOC: DL.ED 18:15
DX: L03.115 Cellulitis of right lower limb (principal); I12.9 Hypertensive chronic kidney disease with stage 1 through stage 4 chronic kidney disease, or unspecified chronic kidney disease; E10.22 Type 1 diabetes mellitus with diabetic chronic kidney disease; N18.9 Chronic kidney disease, unspecified; E10.21 Type 1 diabetes mellitus with diabetic nephropathy; E78.00 Pure hypercholesterolemia, unspecified; Z79.82 Long term (current) use of aspirin; Z79.899 Other long term (current) drug therapy
CPT/HCPCS: 36415; 80053; 82962; 83605; 85025; 87040; 87070; 87077; 87186; 96365; 96375; 99285; A9270; J1170; J2405; J3490; J7050; 99283

== ENCOUNTER 2022-03-29 12:30 | Emergency (ER) | payer MEDICARE, MEDICAID ==
[2022-03-29] MEDS ORDERED: diphenhydrAMINE 50 MG/ML SDV IV ONE (13:25)
[2022-03-29] MEDS ORDERED: Acetaminophen 325 MG Tab PO ONE (13:25)
[2022-03-29] MEDS ORDERED: Sodium Chloride 0.9% 10 ML Syringe FLUSH PRN (13:25)
[2022-03-29] MEDS ORDERED: Furosemide 40 MG/4 ML VIAL IVPUSH ONE (13:54)
[2022-03-29 14:06] LABS: ANION GAP 7.2 mEq/L (7-13)
[2022-03-29 21:54] VITALS: BP 198/83; PULSE 67
== END 2022-03-29 21:56 | disposition home or self-care (01) ==
LOC: DL.ED 12:30
DX: E10.22 Type 1 diabetes mellitus with diabetic chronic kidney disease (principal); I12.9 Hypertensive chronic kidney disease with stage 1 through stage 4 chronic kidney disease, or unspecified chronic kidney disease; N18.9 Chronic kidney disease, unspecified; D63.1 Anemia in chronic kidney disease; Z99.2 Dependence on renal dialysis; E78.00 Pure hypercholesterolemia, unspecified; F17.210 Nicotine dependence, cigarettes, uncomplicated; Z79.82 Long term (current) use of aspirin; Z79.899 Other long term (current) drug therapy
CPT/HCPCS: 36415; 36430; 80053; 85014; 85018; 85025; 86850; 86900; 86901; 86920; 86922; 96374; 96375; 99284; A9270; J1200; J1940; P9016

== ENCOUNTER 2022-12-12 10:28 | Emergency (ER) | payer MEDICARE, MEDICAID ==
[2022-12-12] MEDS ORDERED: Sodium Chloride 0.9% 10 ML Syringe FLUSH PRN (10:33)
[2022-12-12] MEDS ORDERED: Naloxone 2 MG/2 ML Syringe IVPUSH ONE (10:46)
[2022-12-12 10:54] LABS: O2 DELIVERY DEVICE ROOM AIR
[2022-12-12 10:57] LABS: BASOPHILS PERCENT AUTO 0.3 % (0.0-1.0); EOSINOPHILS PERCENT AUTO 5.2 % (1.0-3.0); HEMATOCRIT 32.6 % (40.0-54.0); HEMOGLOBIN 10.2 g/dL (14.0-18.0); LYMPHOCYTES PERCENT AUTO 20.8 % (20.5-50.1); MEAN CORPUSCULAR HEMOGLOBIN 30.2 pg (27.0-34.0); MEAN CORPUSCULAR HGB CONC 31.3 g/dL (33.0-35.0); MEAN CORPUSCULAR VOLUME 96.4 fL (80-100); MONOCYTES PERCENT AUTO 4.5 % (2-8); NEUTROPHILS PERCENT AUTO 69.2 % (42.2-75.2); PLATELET COUNT,PLT 224 10^3/uL (150-450); RED BLOOD CELL COUNT 3.38 10^6/uL (4.6-6.2); WHITE BLOOD CELL COUNT,WBC 6.4 10^3/uL (5.0-10.0)
[2022-12-12 11:02] LABS: BASE EXCESS VENOUS -1.4 mmol/l ((-2)-(+3)); BICARBONATE,VENOUS 20 mmol/l (19-25); O2 SATURATION VENOUS 84.9 % (60-80); PCO2 VENOUS 26 mmHg (41-51); PO2 VENOUS 51 mmHg (35-42)
[2022-12-12 11:05] LABS: KETONES,BLOOD NEGATIVE
[2022-12-12] MEDS ORDERED: Nitroglycerin 0.4 MG Tab.SL SL PRN (11:07)
[2022-12-12 11:12] LABS: INR 1.5 (0.9-1.2); PROTHROMBIN TIME 15.5 SEC (9.0-12.0); PTT,PARTIAL THROMBOPLSTIN TIME 30.5 SEC (22.0-34.0)
[2022-12-12 11:16] LABS: A/G RATIO 0.6; ALBUMIN 3.4 g/dL (3.4-5.0); ALKALINE PHOSPHATASE 162 U/L (46-116); ANION GAP 25.2 mEq/L (7-13); ASPARTATE AMNIOTRANSFERASE,AST 25 U/L (15-37); BILIRUBIN TOTAL 0.6 mg/dL (0.2-1.0); BLOOD UREA NITROGEN,BUN 39 mg/dL (7-18); BUN/CREATININE RATIO 3.9 (No establ ref range); CALCIUM 8.9 mg/dL (8.5-10.1); CARBON DIOXIDE,CO2 21 mmol/L (21-32); CHLORIDE,CL 95 mmol/L (98-107); CREATININE 10.11 mg/dL (0.70-1.30); GLUCOSE RANDOM 172 mg/dL (70-99); MAGNESIUM 2.7 mg/dL (1.8-2.4); PHOSPHORUS 5.2 mg/dL (2.6-4.7); POTASSIUM,K 4.2 mmol/L (3.5-5.1); PROTEIN TOTAL,TP 8.9 g/dL (6.4-8.2); SODIUM,NA 137 mmol/L (136-145)
[2022-12-12] MEDS ORDERED: Ondansetron 4 MG/2 ML SDV IV ONE (11:16)
[2022-12-12 11:21] LABS: B-TYPE NATRIURETIC PEPTIDE,BNP 1990 pg/ml (0-100)
[2022-12-12 11:31] LABS: LACTIC ACID 4.8 mmol/L (0.4-2.0)
[2022-12-12 11:39] LABS: ALANINE AMINOTRANSFERASE,ALT < 6 U/L (16-63); ESTIMATED GFR 6 mL/min (>=60)
[2022-12-12] MEDS ORDERED: Morphine 4 MG/ML Syringe IVPUSH ONE (11:52)
[2022-12-12] MEDS ORDERED: Metoprolol Tartrate 25 MG Tab PO ONE (11:53)
[2022-12-12] MEDS ORDERED: Metoprolol Tartrate 5 MG/5 ML SDV IVPUSH ONE ×2 (11:53→12:40)
[2022-12-12 13:18] VITALS: BP 165/104; PULSE 114
== END 2022-12-12 13:55 ==
LOC: DL.ED 10:28
DX: I48.91 Unspecified atrial fibrillation (principal); E78.00 Pure hypercholesterolemia, unspecified; I10 Essential (primary) hypertension; E10.22 Type 1 diabetes mellitus with diabetic chronic kidney disease; Z79.82 Long term (current) use of aspirin; Z79.4 Long term (current) use of insulin; Z79.899 Other long term (current) drug therapy; Z99.2 Dependence on renal dialysis
CPT/HCPCS: 36415; 71045; 80053; 82009; 82803; 82947; 83605; 83735; 83880; 84100; 84145; 84484; 85025; 85610; 85730; 87040; 93005; 93010; 96374; 96375; 96376; 99284; 99285-25; A9270-GY; J2270; J2310; J2405; J3490

== ENCOUNTER 2023-05-16 10:07 | Emergency (ER) | payer MEDICARE, MEDICAID ==
[2023-05-16 11:18] LABS: HEMATOCRIT 21.3 % (40.0-54.0); MEAN CORPUSCULAR HEMOGLOBIN 26.8 pg (27.0-34.0); MEAN CORPUSCULAR HGB CONC 31.9 g/dL (33.0-35.0); MEAN CORPUSCULAR VOLUME 83.9 fL (80-100); PLATELET COUNT,PLT 178 10^3/uL (150-450); RED BLOOD CELL COUNT 2.54 10^6/uL (4.6-6.2); WHITE BLOOD CELL COUNT,WBC 19.1 10^3/uL (5.0-10.0)
[2023-05-16 11:23] LABS: BASOPHILS PERCENT AUTO 0.1 % (0.0-1.0); HEMOGLOBIN 6.8 g/dL (14.0-18.0); LYMPHOCYTES PERCENT AUTO 3.7 % (20.5-50.1); MONOCYTES PERCENT AUTO 3.9 % (2-8); NEUTROPHILS PERCENT AUTO 92.3 % (42.2-75.2)
[2023-05-16] MEDS ORDERED: Acetaminophen 325 MG Tab PO ONE (11:26)
[2023-05-16] MEDS ORDERED: Sodium Chloride 0.9% 10 ML Syringe FLUSH PRN ×2 (11:26)
[2023-05-16] MEDS ORDERED: diphenhydrAMINE 50 MG/ML SDV IV ONE (11:26)
[2023-05-16 11:37] LABS: ANION GAP 13.6 mEq/L (7-13); CREATININE 5.21 mg/dL (0.70-1.30); EST CRCL DRUG DOSING (CG) 21.89 mL/min; MAGNESIUM 1.5 mg/dL (1.8-2.4); PHOSPHORUS 2.6 mg/dL (2.6-4.7); POTASSIUM,K 3.6 mmol/L (3.5-5.1)
[2023-05-16] MEDS ORDERED: Azithromycin 500 MG in Sodium Chloride 0.9% 250 ML IV ONE (11:51)
[2023-05-16] MEDS ORDERED: cefTRIAXone 1 GM Vial IVPUSH ONE (11:51)
[2023-05-16] MEDS ORDERED: 50% Dextrose in Water 50 ML Syringe IVPUSH PRN (11:57)
[2023-05-16] MEDS ORDERED: Glucagon,Human Recombinant 1 MG Vial IM PRN (11:57)
[2023-05-16] MEDS ORDERED: Insulin Regular, Human 100 Units/ML 3 ML Vial SUBCUT ONE (11:57)
[2023-05-16 12:08] LABS: O2 DELIVERY DEVICE ROOM AIR
[2023-05-16 12:09] LABS: BASE EXCESS VENOUS 4.8 mmol/l ((-2)-(+3)); BICARBONATE,VENOUS 29 mmol/l (19-25); O2 SATURATION VENOUS 97.1 % (60-80); PCO2 VENOUS 45 mmHg (41-51); PH,VENOUS 7.43 (7.31-7.41); PO2 VENOUS 83 mmHg (35-42)
[2023-05-16 12:12] LABS: B-TYPE NATRIURETIC PEPTIDE,BNP 704 pg/ml (0-100)
[2023-05-16 12:15] LABS: LACTIC ACID 2.2 mmol/L (0.4-2.0)
[2023-05-16 12:16] LABS: KETONES,BLOOD NEGATIVE
[2023-05-16 12:26] LABS: BAND PERCENT MAN 13 %; LYMPHOCYTES PERCENT MAN 5 % (20-50); MONOCYTES PERCENT MAN 3 % (2-8); PLATELET COUNT ESTIMATE ADEQUATE; SEG NEUTROPHILS PERCENT MAN 79 % (42-75)
[2023-05-16 12:37] LABS: CORONAVIRUS COVID-19 NAA NEGATIVE (NEGATIVE); INFLUENZA A NAA NEGATIVE (NEGATIVE); INFLUENZA B NAA NEGATIVE (NEGATIVE); RESPIRATORY SYNCYTIAL VIR NAA NEGATIVE (NEGATIVE)
[2023-05-16 16:47] LABS: HEMATOCRIT 19.9 % (40.0-54.0); HEMOGLOBIN 6.3 g/dL (14.0-18.0)
[2023-05-16] MEDS ORDERED: Sodium Chloride 0.9% 250 ML IV ONE (18:19)
[2023-05-16 20:40] LABS: HEMATOCRIT 19.3 % (40.0-54.0); HEMOGLOBIN 6.2 g/dL (14.0-18.0)
[2023-05-16 22:07] LABS: LACTIC ACID 1.3 mmol/L (0.4-2.0)
[2023-05-17 07:30] LABS: BASOPHILS PERCENT AUTO 0.1 % (0.0-1.0); EOSINOPHILS PERCENT AUTO 0.1 % (1.0-3.0); LYMPHOCYTES PERCENT AUTO 5.4 % (20.5-50.1); MEAN CORPUSCULAR HEMOGLOBIN 26.5 pg (27.0-34.0); MEAN CORPUSCULAR HGB CONC 31.8 g/dL (33.0-35.0); MEAN CORPUSCULAR VOLUME 83.2 fL (80-100); MONOCYTES PERCENT AUTO 4.5 % (2-8); NEUTROPHILS PERCENT AUTO 89.9 % (42.2-75.2); PLATELET COUNT,PLT 161 10^3/uL (150-450); RED BLOOD CELL COUNT 2.38 10^6/uL (4.6-6.2); WHITE BLOOD CELL COUNT,WBC 15.6 10^3/uL (5.0-10.0)
[2023-05-17 07:34] LABS: HEMATOCRIT 19.8 % (40.0-54.0); HEMOGLOBIN 6.3 g/dL (14.0-18.0)
[2023-05-17] MEDS ORDERED: cefTRIAXone 1 GM Vial IVPUSH ONE ×2 (07:41→09:00)
[2023-05-17] MEDS ORDERED: Azithromycin 250 MG in Sodium Chloride 0.9% 250 ML IV ONE (07:41)
[2023-05-17 07:48] LABS: ANION GAP 15.7 mEq/L (7-13); EST CRCL DRUG DOSING (CG) 18.3 mL/min; MAGNESIUM 1.7 mg/dL (1.8-2.4); PHOSPHORUS 3.8 mg/dL (2.6-4.7); POTASSIUM,K 3.7 mmol/L (3.5-5.1)
[2023-05-17 08:02] LABS: CREATININE 6.23 mg/dL (0.70-1.30)
[2023-05-17] MEDS ORDERED: Azithromycin 250 MG Tab PO ONE (08:28)
[2023-05-17] MEDS ORDERED: 50% Dextrose in Water 50 ML Syringe IVPUSH PRN ×2 (09:29→13:01)
[2023-05-17] MEDS ORDERED: Glucagon,Human Recombinant 1 MG Vial IM PRN ×2 (09:29→13:01)
[2023-05-17] MEDS ORDERED: Insulin Lispro 100 Units/ML 3 ML Vial SUBCUT ONE ×2 (09:29→13:01)
[2023-05-17] MEDS ORDERED: Bumetanide 1 MG/4 ML MDV IVPUSH ONE (13:24)
[2023-05-17 16:26] VITALS: BP 125/65; PULSE 64
== END 2023-05-17 16:30 ==
LOC: DL.ED 10:07
DX: I12.0 Hypertensive chronic kidney disease with stage 5 chronic kidney disease or end stage renal disease (principal); N18.6 End stage renal disease; D63.1 Anemia in chronic kidney disease; J90 Pleural effusion, not elsewhere classified; E87.1 Hypo-osmolality and hyponatremia; E83.42 Hypomagnesemia; E11.22 Type 2 diabetes mellitus with diabetic chronic kidney disease; E11.65 Type 2 diabetes mellitus with hyperglycemia; F17.210 Nicotine dependence, cigarettes, uncomplicated; E78.00 Pure hypercholesterolemia, unspecified; Z99.2 Dependence on renal dialysis; Z79.4 Long term (current) use of insulin; Z79.899 Other long term (current) drug therapy; Z79.82 Long term (current) use of aspirin
CPT/HCPCS: 0241U; 36415; 36430; 71045; 80048; 82009; 82247; 82803; 82947; 83605; 83735; 83880; 84075; 84100; 84145; 84450; 84460; 85014; 85018; 85025; 86850; 86870; 86880; 86900; 86901; 86902; 86905; 86920; 86922; 87040; 96361; 96365; 96375; 96376; 99285; 99285-25; A9270-GY; J0456; J0696; J1200; J1815-GY; J3490; J7030; J7050; P9016

== ENCOUNTER 2023-06-06 12:46 | Emergency (ER) | payer MEDICARE, MEDICAID | END 2023-06-06 14:51 | disposition left against medical advice (07) | LOC: DL.ED 12:46 | DX: Z53.21 Procedure and treatment not carried out due to patient leaving prior to being seen by health care provider (principal) ==

== ENCOUNTER 2023-10-07 13:34 | Observation (INO) | payer MEDICARE, MEDICAID ==
[2023-10-07 14:28] LABS: HEMATOCRIT 27.6 % (40.0-54.0); HEMOGLOBIN 8.7 g/dL (14.0-18.0); MEAN CORPUSCULAR HEMOGLOBIN 26.3 pg (27.0-34.0); MEAN CORPUSCULAR HGB CONC 31.5 g/dL (33.0-35.0); MEAN CORPUSCULAR VOLUME 83.4 fL (80-100); PLATELET COUNT,PLT 75 10^3/uL (150-450); RED BLOOD CELL COUNT 3.31 10^6/uL (4.6-6.2); WHITE BLOOD CELL COUNT,WBC 8.1 10^3/uL (5.0-10.0)
[2023-10-07] MEDS: Albuterol/Ipratropium 3.0-0.5 MG/3 ML Neb Soln NEB ONE (14:37)
[2023-10-07 14:49] LABS: BASOPHILS PERCENT AUTO 0.3 % (0.0-1.0); EOSINOPHILS PERCENT AUTO 4.8 % (1.0-3.0); MONOCYTES PERCENT AUTO 5.3 % (2-8); NEUTROPHILS PERCENT AUTO 52.6 % (42.2-75.2)
[2023-10-07] MEDS: Benzonatate 100 MG Cap PO ONE (14:49)
[2023-10-07] MEDS: Sodium Chloride 0.9% 10 ML Syringe FLUSH PRN (14:49)
[2023-10-07 15:00] LABS: ALBUMIN 1.9 g/dL (3.4-5.0); ANION GAP 11.7 mEq/L (7-13); BILIRUBIN TOTAL 2.8 mg/dL (0.2-1.0); BUN/CREATININE RATIO 6.7 (No establ ref range); CALCIUM 8.6 mg/dL (8.5-10.1); CREATININE 5.07 mg/dL (0.70-1.30); EST CRCL DRUG DOSING (CG) 20.58 mL/min; POTASSIUM,K 3.7 mmol/L (3.5-5.1); PROTEIN TOTAL,TP 6.6 g/dL (6.4-8.2)
[2023-10-07 15:01] LABS: A/G RATIO 0.4
[2023-10-07 15:21] LABS: BAND PERCENT MAN 10 %; LYMPHOCYTES PERCENT MAN 3 % (20-50); MONOCYTES PERCENT MAN 5 % (2-8); SEG NEUTROPHILS PERCENT MAN 82 % (42-75)
[2023-10-07 15:22] LABS: PLATELET COUNT ESTIMATE DECREASED
[2023-10-07] MEDS ORDERED: Magnesium Hydroxide 400 MG/5 ML Susp 30 ML Cup PO PRN (15:43)
[2023-10-07] MEDS ORDERED: Zolpidem 5 MG Tab PO PRN (15:43)
[2023-10-07] MEDS ORDERED: Polyethylene Glycol 3350 Powder 17 GM Packet PO PRN (15:43)
[2023-10-07] MEDS ORDERED: Albuterol/Ipratropium 3.0-0.5 MG/3 ML Neb Soln NEB PRN (15:43)
[2023-10-07] MEDS ORDERED: Sennosides/Docusate Sodium 50-8.6 MG Tab PO PRN (15:43)
[2023-10-07] MEDS ORDERED: guaiFENesin/Dextromethorphan 100-10 MG/5 ML Soln 5 ML Cup PO PRN (15:47)
[2023-10-07] MEDS ORDERED: Glucagon,Human Recombinant 1 MG Vial IM PRN (15:49)
[2023-10-07] MEDS ORDERED: 50% Dextrose in Water 50 ML Syringe IVPUSH PRN (15:49)
[2023-10-07] MEDS: Acetaminophen 325 MG Tab PO PRN (16:41)
[2023-10-07] MEDS: Piperacillin/Tazobactam 4.5 GM in Sodium Chloride 0.9% 100 ML IV ONE (16:42)
[2023-10-07] MEDS: Azithromycin 500 MG in Sodium Chloride 0.9% 250 ML IV ONE (17:35)
[2023-10-07] MEDS: Insulin Lispro 100 Units/ML 3 ML Vial SUBCUT SCH (17:35)
[2023-10-07] MEDS ORDERED: Acetaminophen/HYDROcodone 325-5 MG Tab PO PRN (18:08)
[2023-10-07] MEDS ORDERED: HYDROmorphone 1 MG/ML Syringe IVPUSH PRN (18:09)
[2023-10-07] MEDS ORDERED: Naloxone 2 MG/2 ML Syringe IVPUSH PRN (18:09)
[2023-10-07] MEDS: Ampicillin/Sulbactam Na 1.5 GM in Sodium Chloride 0.9% 100 ML IV SCH (18:33)
[2023-10-07] MEDS: guaiFENesin 600 MG Tab.ER PO SCH (20:42)
[2023-10-07] MEDS: Saccharomyces Boulardii (Probiotic) 250 MG Cap PO SCH (20:42)
[2023-10-07] MEDS: Insulin Glarg,Human.Rec.Analog 100 Unit/ML 10 ML Vial SUBCUT SCH (20:45)
[2023-10-07] MEDS ORDERED: Benzonatate 100 MG Cap PO PRN (21:00)
[2023-10-07] MEDS ORDERED: Buprenorphine/Naloxone 8-2 MG Tab.SL SL SCH (21:00)
[2023-10-07] MEDS ORDERED: Melatonin 3 MG Tab PO PRN (21:00)
[2023-10-08] MEDS: Pantoprazole 40 MG Tab.CR PO SCH (05:03)
[2023-10-08] MEDS ORDERED: Non-Formulary Medication 1 Each (Pantoprazole [Pantoprazole] 20 MG Tab.Dr) PO SCH (06:00)
[2023-10-08 06:43] LABS: HEMATOCRIT 25.7 % (40.0-54.0); HEMOGLOBIN 8.2 g/dL (14.0-18.0); LYMPHOCYTES PERCENT AUTO 3.4 % (20.5-50.1); MEAN CORPUSCULAR HEMOGLOBIN 26.1 pg (27.0-34.0); MEAN CORPUSCULAR HGB CONC 31.9 g/dL (33.0-35.0); MEAN CORPUSCULAR VOLUME 81.8 fL (80-100); NEUTROPHILS PERCENT AUTO 89.6 % (42.2-75.2); PLATELET COUNT,PLT 72 10^3/uL (150-450); RED BLOOD CELL COUNT 3.14 10^6/uL (4.6-6.2)
[2023-10-08 07:08] LABS: INR 1.6 (0.9-1.2); PROTHROMBIN TIME 16.2 SEC (9.0-12.0); PTT,PARTIAL THROMBOPLSTIN TIME 38.3 SEC (22.0-34.0)
[2023-10-08 07:23] LABS: ALBUMIN 1.8 g/dL (3.4-5.0); ALKALINE PHOSPHATASE 165 U/L (46-116); ANION GAP 10.6 mEq/L (7-13); ASPARTATE AMNIOTRANSFERASE,AST 13 U/L (15-37); BILIRUBIN TOTAL 3.1 mg/dL (0.2-1.0); BLOOD UREA NITROGEN,BUN 43 mg/dL (7-18); BUN/CREATININE RATIO 7.4 (No establ ref range); CALCIUM 8.7 mg/dL (8.5-10.1); CARBON DIOXIDE,CO2 32 mmol/L (21-32); CHLORIDE,CL 91 mmol/L (98-107); EST CRCL DRUG DOSING (CG) 18.18 mL/min; GLUCOSE RANDOM 221 mg/dL (70-99); MAGNESIUM 1.4 mg/dL (1.8-2.4); POTASSIUM,K 3.6 mmol/L (3.5-5.1); PROTEIN TOTAL,TP 6.3 g/dL (6.4-8.2); SODIUM,NA 130 mmol/L (136-145)
[2023-10-08 07:27] LABS: ESTIMATED GFR 12 mL/min (>=60)
[2023-10-08 07:28] LABS: C-REACTIVE PROTEIN > 25.00 ng/dL (<=0.50)
[2023-10-08 07:35] LABS: ALANINE AMINOTRANSFERASE,ALT 7 U/L (16-63)
[2023-10-08] MEDS: Losartan 50 MG Tab PO SCH (08:23)
[2023-10-08] MEDS: Azithromycin 500 MG in Sodium Chloride 0.9% 250 ML IV SCH (08:24)
[2023-10-08] MEDS: amLODIPine 5 MG Tab PO SCH (08:24)
[2023-10-08] MEDS: Ondansetron 4 MG/2 ML SDV IVPUSH PRN (08:44)
[2023-10-08] MEDS: Magnesium Sulfate/Water 2 GM in Premix Bag 1 BAG IV ONE (10:06)
[2023-10-08] MEDS: Buprenorphine/Naloxone 8-2 MG Tab.SL SL SCH ×2 (11:53→21:17)
[2023-10-08] MEDS: Ampicillin/Sulbactam Na 1.5 GM in Sodium Chloride 0.9% 100 ML IV SCH (17:20)
[2023-10-08] MEDS: Apixaban 5 MG Tab PO ONE (22:26)
[2023-10-09 04:59] VITALS: BP 167/76; PULSE 64
[2023-10-09] MEDS ORDERED: Apixaban 5 MG Tab PO SCH (09:00)
== END 2023-10-09 06:25 | disposition home or self-care (01) ==
LOC: DL.ED 13:34 → DL.MS 15:17
PROVIDERS: ADMIT Internal Medicine; ATTEND Internal Medicine
DX: J18.9 Pneumonia, unspecified organism (principal); E10.622 Type 1 diabetes mellitus with other skin ulcer; L97.819 Non-pressure chronic ulcer of other part of right lower leg with unspecified severity; I12.0 Hypertensive chronic kidney disease with stage 5 chronic kidney disease or end stage renal disease; E10.22 Type 1 diabetes mellitus with diabetic chronic kidney disease; N18.6 End stage renal disease; D63.1 Anemia in chronic kidney disease; E10.65 Type 1 diabetes mellitus with hyperglycemia; E87.70 Fluid overload, unspecified; J90 Pleural effusion, not elsewhere classified; R18.8 Other ascites; R79.89 Other specified abnormal findings of blood chemistry; D50.9 Iron deficiency anemia, unspecified; D69.6 Thrombocytopenia, unspecified; E87.1 Hypo-osmolality and hyponatremia; E87.8 Other disorders of electrolyte and fluid balance, not elsewhere classified; E83.52 Hypercalcemia; E83.42 Hypomagnesemia; E80.6 Other disorders of bilirubin metabolism; R74.8 Abnormal levels of other serum enzymes; E43 Unspecified severe protein-calorie malnutrition; E88.09 Other disorders of plasma-protein metabolism, not elsewhere classified; K21.9 Gastro-esophageal reflux disease without esophagitis; Z99.2 Dependence on renal dialysis; Z79.4 Long term (current) use of insulin; Z79.899 Other long term (current) drug therapy; Z79.2 Long term (current) use of antibiotics; Z79.01 Long term (current) use of anticoagulants; Z89.511 Acquired absence of right leg below knee; Z89.512 Acquired absence of left leg below knee
CPT/HCPCS: 36415; 71046; 80053; 82947; 83605; 83735; 83880; 84145; 85025; 85610; 85730; 86140; 87040; 87077; 87804; 94010; 94640; 94667; 99285; A9270; J0295; J0456; J1815; J2405; J2543; J3475; J3490; J7050; U0002; 96365; 96366; 96367; 96375; 96376; G0378; J7620-GY

== ENCOUNTER 2024-04-24 10:08 | Observation (INO) | payer MEDICAID, MEDICARE, OTHER ==
[2024-04-24 10:43] LABS: BASOPHILS PERCENT AUTO 0.3 % (0.0-1.0); EOSINOPHILS PERCENT AUTO 1.2 % (1.0-3.0); LYMPHOCYTES PERCENT AUTO 16.3 % (20.5-50.1); MEAN CORPUSCULAR HEMOGLOBIN 30.2 pg (27.0-34.0); MEAN CORPUSCULAR HGB CONC 33.3 g/dL (33.0-35.0); MEAN CORPUSCULAR VOLUME 90.7 fL (80-100); MONOCYTES PERCENT AUTO 10.5 % (2-8); NEUTROPHILS PERCENT AUTO 71.7 % (42.2-75.2); PLATELET COUNT,PLT 111 10^3/uL (150-450); RED BLOOD CELL COUNT 1.72 10^6/uL (4.6-6.2); WHITE BLOOD CELL COUNT,WBC 3.4 10^3/uL (5.0-10.0)
[2024-04-24 10:46] LABS: HEMATOCRIT 15.6 % (40.0-54.0); HEMOGLOBIN 5.2 g/dL (14.0-18.0)
[2024-04-24 10:57] LABS: ANION GAP 15.4 mEq/L (7-13); CALCIUM 7.5 mg/dL (8.5-10.1); CREATININE 4.07 mg/dL (0.70-1.30); EST CRCL DRUG DOSING (CG) 25.69 mL/min; POTASSIUM,K 3.4 mmol/L (3.5-5.1)
[2024-04-24] MEDS ORDERED: Melatonin 3 MG Tab PO PRN (13:19)
[2024-04-24] MEDS ORDERED: Albuterol/Ipratropium 3.0-0.5 MG/3 ML Neb Soln NEB PRN (13:19)
[2024-04-24] MEDS ORDERED: Ondansetron 4 MG/2 ML SDV IVPUSH PRN (13:19)
[2024-04-24] MEDS ORDERED: oxyCODONE 5 MG Tab PO PRN (13:19)
[2024-04-24] MEDS ORDERED: Acetaminophen 325 MG Tab PO PRN (13:19)
[2024-04-24] MEDS ORDERED: Docusate Sodium 100 MG Cap PO PRN (13:19)
[2024-04-24] MEDS ORDERED: Heparin Sodium 5,000 Units/ML Vial SUBCUT SCH (14:00)
[2024-04-24] MEDS: Insulin Lispro 100 Units/ML 3 ML Vial SUBCUT SCH ×2 (15:05→18:18)
[2024-04-24] MEDS: Albuterol/Ipratropium 3.0-0.5 MG/3 ML Neb Soln NEB ONE (16:05)
[2024-04-24] MEDS: Sucralfate 1 GM Tab PO SCH (18:20)
[2024-04-24] MEDS: amLODIPine 5 MG Tab PO SCH (18:20)
[2024-04-24] MEDS ORDERED: Non-Formulary Medication 1 Each (Calcium Acetate [Phoslo] 667 MG Cap) PO SCH (21:00)
[2024-04-24] MEDS ORDERED: Buprenorphine/Naloxone 8-2 MG Tab.SL SL SCH (21:00)
[2024-04-24] MEDS ORDERED: atorvaSTATin 20 MG Tab PO SCH (21:00)
[2024-04-24] MEDS ORDERED: Carvedilol 25 MG Tab PO SCH (21:00)
[2024-04-24] MEDS ORDERED: Saccharomyces Boulardii (Probiotic) 250 MG Cap PO SCH (21:00)
[2024-04-24] MEDS ORDERED: Apixaban 5 MG Tab PO SCH (21:00)
[2024-04-24 22:16] VITALS: BP 174/80; PULSE 66
[2024-04-25] MEDS ORDERED: Pantoprazole 40 MG Tab.CR PO SCH (06:00)
[2024-04-25] MEDS ORDERED: FLUoxetine 10 MG Cap PO SCH (09:00)
[2024-04-25] MEDS ORDERED: Losartan 50 MG Tab PO SCH (09:00)
[2024-04-25] MEDS ORDERED: Insulin Glarg,Human.Rec.Analog 100 Unit/ML 10 ML Vial SUBCUT SCH (09:00)
== END 2024-04-24 20:10 | disposition home or self-care (01) ==
LOC: DL.ED 10:08 → DL.MS 12:57 → UNDODISOB 13:00
PROVIDERS: ADMIT Internal Medicine; ATTEND Internal Medicine
DX: I12.0 Hypertensive chronic kidney disease with stage 5 chronic kidney disease or end stage renal disease (principal); E10.22 Type 1 diabetes mellitus with diabetic chronic kidney disease; N18.6 End stage renal disease; D63.1 Anemia in chronic kidney disease; I25.10 Atherosclerotic heart disease of native coronary artery without angina pectoris; E78.00 Pure hypercholesterolemia, unspecified; Z99.2 Dependence on renal dialysis; Z79.899 Other long term (current) drug therapy; Z79.4 Long term (current) use of insulin; Z79.01 Long term (current) use of anticoagulants; Z87.891 Personal history of nicotine dependence
CPT/HCPCS: 36415; 36430; 80048; 82947; 85025; 86850; 86870; 86900; 86901; 86920; 86922; 99223; 99285; A9270; G0378; J1815; P9016; 86902; 99284

== ENCOUNTER 2024-05-01 13:37 | Emergency (ER) | payer MEDICARE ==
[2024-05-01 14:28] LABS: O2 DELIVERY DEVICE ROOM AIR
[2024-05-01 14:30] LABS: EOSINOPHILS PERCENT AUTO 5.4 % (1.0-3.0); HEMATOCRIT 23.4 % (40.0-54.0); HEMOGLOBIN 7.2 g/dL (14.0-18.0); LYMPHOCYTES PERCENT AUTO 11.1 % (20.5-50.1); MEAN CORPUSCULAR HEMOGLOBIN 30.3 pg (27.0-34.0); MEAN CORPUSCULAR HGB CONC 30.8 g/dL (33.0-35.0); MEAN CORPUSCULAR VOLUME 98.3 fL (80-100); MONOCYTES PERCENT AUTO 7.9 % (2-8); NEUTROPHILS PERCENT AUTO 75.6 % (42.2-75.2); PLATELET COUNT,PLT 153 10^3/uL (150-450); RED BLOOD CELL COUNT 2.38 10^6/uL (4.6-6.2); WHITE BLOOD CELL COUNT,WBC 3.7 10^3/uL (5.0-10.0)
[2024-05-01 14:31] LABS: PH,VENOUS 7.43 (7.31-7.41)
[2024-05-01 14:32] LABS: BASE EXCESS VENOUS 4.9 mmol/l ((-2)-(+3)); BICARBONATE,VENOUS 29 mmol/l (19-25); O2 SATURATION VENOUS 79.3 % (60-80); PCO2 VENOUS 45 mmHg (41-51); PO2 VENOUS 48 mmHg (35-42)
[2024-05-01 14:50] LABS: INR 1.3 (0.9-1.2); PROTHROMBIN TIME 13.1 SEC (9.0-12.0); PTT,PARTIAL THROMBOPLSTIN TIME 28.3 SEC (22.0-34.0)
[2024-05-01 14:53] LABS: ALBUMIN 2.5 g/dL (3.4-5.0); ANION GAP 12.9 mEq/L (7-13); BILIRUBIN TOTAL 0.8 mg/dL (0.2-1.0); BUN/CREATININE RATIO 4.3 (No establ ref range); CALCIUM 7.6 mg/dL (8.5-10.1); CREATININE 4.61 mg/dL (0.70-1.30); EST CRCL DRUG DOSING (CG) 22.68 mL/min; MAGNESIUM 1.5 mg/dL (1.8-2.4); POTASSIUM,K 3.9 mmol/L (3.5-5.1)
[2024-05-01 14:54] LABS: A/G RATIO 0.56
[2024-05-01 21:16] VITALS: BP 139/81; PULSE 65
== END 2024-05-01 21:00 | disposition home or self-care (01) ==
LOC: DL.ED 13:37
DX: I12.9 Hypertensive chronic kidney disease with stage 1 through stage 4 chronic kidney disease, or unspecified chronic kidney disease (principal); N18.6 End stage renal disease; D63.1 Anemia in chronic kidney disease; E78.00 Pure hypercholesterolemia, unspecified; E10.9 Type 1 diabetes mellitus without complications; F17.210 Nicotine dependence, cigarettes, uncomplicated; Z79.4 Long term (current) use of insulin; Z79.899 Other long term (current) drug therapy; Z90.49 Acquired absence of other specified parts of digestive tract
CPT/HCPCS: 36415; 36430; 80053; 82803; 83735; 84484; 85025; 85610; 85730; 86850; 86870; 86900; 86901; 86920; 86922; 99284; 99285; P9016